=== PATIENT | male | born 1970 | race Two or more races ===

== ENCOUNTER 2019-04-04 11:09 | Inpatient (IN) | payer MEDICARE, MEDICAID ==
[~2019-04-04] VITALS: Ht 177.8 cm; Wt 109.2 kg
[2019-04-04] MEDS ORDERED: SODIUM CHLORIDE 0.9% 1,000 ML IV ONE (13:23)
[2019-04-04] MEDS ORDERED: PIPERACILLIN-TAZOB 3.375GM 100 ML IV ONE (13:30)
[2019-04-04 15:00] LABS: Hemoglobin 7.5 g/dL (13.5-17.5); Lymphocytes # (auto) 0.4 uL
[2019-04-04 15:02] LABS: Basophils # (auto) 0.1 uL; Basophils % (auto) 0.8 % (0.0-2.0); Eosinophils # (auto) 0.1 uL; Eosinophils % (auto) 0.8 % (0.0-7.0); Hematocrit 23.7 % (41.0-53.0); Lymphocytes % (auto) 4.7 % (10.0-50.0); Mean Corpuscular Hemoglobin 29.4 pg (28.0-32.0); Mean Corpuscular Hgb Conc. 31.7 g/dL (32.0-36.0); Mean Corpuscular Volume 92.9 fL (80.0-100.0); Monocytes # (auto) 0.5 uL; Monocytes % (auto) 6.5 % (0.0-12.0); Neutrophils # (auto) 6.6 uL; Neutrophils % (auto) 87.2 % (37.0-80.0); Platelet Count (auto) 229 10^3/uL (140-450); Red Blood Cells 2.55 10^6/uL (4.5-5.90); White Blood Cell 7.6 10^3/uL (4.4-10.8)
[2019-04-04] MEDS ORDERED: VANCOMYCIN 1GM/250ML 250 ML IV ONE ×2 (15:15→18:30)
[2019-04-04 15:21] LABS: Albumin 1.6 g/dL (3.4-5.0); BUN/Creatinine Ratio 5.6; Calcium 7.5 mg/dL (8.5-10.1); Potassium 4.8 mmol/L (3.5-5.1)
[2019-04-04 15:23] LABS: Red Cell Distribution Width 20.3 % (11.8-14.3)
[2019-04-04 15:25] LABS: Bilirubin, Total 0.9 mg/dL (0.2-1.0)
[2019-04-04] MEDS: PIPERACILLIN-TAZOB 3.375GM 100 ML IV ONE ×2 (15:30→17:20)
[2019-04-04 15:34] LABS: INR 1.21 (0.9-1.15)
[2019-04-04] MEDS ORDERED: NITROGLYCERIN 0.4 MG SL TAB SL PRN (16:45)
[2019-04-04] MEDS ORDERED: VANCOMYCIN PER PHARMACY 0 MG IV SCH (16:45)
[2019-04-04] MEDS ORDERED: DEXTROSE (50%) 50ML SYRG IV PRN (16:45)
[2019-04-04] MEDS ORDERED: ACETAMINOPHEN 500 MG TAB PO PRN (16:45)
[2019-04-04] MEDS ORDERED: MORPHINE SULF INJ 2 MG/ML SYRINGE 1ML IV PRN (16:45)
[2019-04-04] MEDS ORDERED: PIPERACILLIN-TAZOB 0.75 GM in D5W 5% 50 ML IV SCH (18:15)
[2019-04-04] MEDS: InsuLIN REG 1unit/0.01ml Soln (100units/ml) SC SCH ×2 (18:34→21:26)
[2019-04-04] MEDS: ACCU-CHEK COMFORT CURVE STRIP VI SCH ×2 (18:34→21:26)
[2019-04-04] MEDS: CALCIUM ACETATE 667 MG CAP PO SCH (18:34)
[2019-04-04 20:30] VITALS: BP 124/69
--- NOTE | 2019-04-04 20:30 | NUR ---
Telemetry admit from ER VENKATESH TELLES admitted to Telemetry unit after SBAR received. Patient oriented to Jacque Alvarado, primary RN, unit, room, bed, and unit policies regarding patient care and visiting hours. Patient now on continuous telemetry monitoring, tele box # and telemetry reading on arrival to unit is . Patient placed on bedside oxygen, weighed by bedscale and encouraged to call if they need something. All questions and concerns addressed, patient verbalized understanding. Note:
[2019-04-04] MEDS: PIPERACILLIN-TAZOB 2.25GM 50 ML IV SCH (21:25)
[2019-04-04] MEDS: HYDROcodone-ACET 5/325MG TAB PO PRN (21:27)
[2019-04-04 22:47] VITALS: BP 124/69
[2019-04-05] MEDS ORDERED: CAR125T PO (01:55)
[2019-04-05] MEDS ORDERED: GABA300C10 PO (01:55)
[2019-04-05] MEDS ORDERED: ATOR20TA PO (01:55)
[2019-04-05] MEDS ORDERED: ASPI81TA27 PO (01:55)
[2019-04-05] MEDS ORDERED: AMLO5TAB13 PO (01:55)
[2019-04-05] MEDS ORDERED: FURO20TA PO (01:55)
[2019-04-05] MEDS ORDERED: INSLANTI SC (01:55)
[2019-04-05] MEDS ORDERED: TAMS0.4C36 PO (01:55)
[2019-04-05] MEDS ORDERED: ZOLP10TA PO (01:55)
[2019-04-05] MEDS ORDERED: SEVE800T8 PO (01:55)
[2019-04-05] MEDS ORDERED: INSU100I2 SC (01:55)
[2019-04-05] MEDS ORDERED: HYDR-4683 PO (01:57)
[2019-04-05 05:16] LABS: Basophils # (auto) 0 uL; Basophils % (auto) 0.6 % (0.0-2.0); Eosinophils # (auto) 0.2 uL; Hemoglobin 7.1 g/dL (13.5-17.5); Lymphocytes # (auto) 0.4 uL; Monocytes # (auto) 0.6 uL; White Blood Cell 6.1 10^3/uL (4.4-10.8)
[2019-04-05 05:19] LABS: Eosinophils % (auto) 3.3 % (0.0-7.0); Hematocrit 22.2 % (41.0-53.0); Lymphocytes % (auto) 6.8 % (10.0-50.0); Mean Corpuscular Hemoglobin 30.1 pg (28.0-32.0); Monocytes % (auto) 9.5 % (0.0-12.0); Neutrophils # (auto) 4.9 uL; Neutrophils % (auto) 79.8 % (37.0-80.0); Platelet Count (auto) 224 10^3/uL (140-450); Red Blood Cells 2.36 10^6/uL (4.5-5.90)
[2019-04-05 05:28] VITALS: BP 97/52
[2019-04-05 05:42] LABS: Albumin 1.4 g/dL (3.4-5.0); BUN/Creatinine Ratio 5.9; Calcium 7.4 mg/dL (8.5-10.1); Potassium 4.8 mmol/L (3.5-5.1)
[2019-04-05 05:45] LABS: Bilirubin, Total 0.7 mg/dL (0.2-1.0); Total Protein 6.5 g/dL (6.4-8.2)
--- NOTE | 2019-04-05 06:00 | NUR ---
pt. afebrile, no c/o pain at this time, not in distress.
[2019-04-05] MEDS: ACCU-CHEK COMFORT CURVE STRIP VI SCH ×4 (06:03→21:40)
[2019-04-05] MEDS: InsuLIN REG 1unit/0.01ml Soln (100units/ml) SC SCH ×4 (06:03→21:40)
[2019-04-05 06:07] LABS: Red Cell Distribution Width 20.3 % (11.8-14.3)
--- NOTE | 2019-04-05 07:15 | NUR ---
Report and continuation of care received ,patient resting in bed, Hemodialysis in progress,respirations even and unlabored, no distress noted. Patient updated with plan of care and nursing routines ,Fall precautions in place with call light within reach. patient reminded instructed to call for assistance.patient verbalized understanding.Will continue to monitor q1hr & PRN.
[2019-04-05] MEDS: CALCIUM ACETATE 667 MG CAP PO SCH ×3 (08:00→18:06)
[2019-04-05 08:44] VITALS: BP 101/60
--- NOTE | 2019-04-05 09:45 | NUR ---
HEMODIALYSIS ENDED WITH 1 LITER OFF (SEE AIRCRAFT MECHANIC ARMAMENT FLOW SHEET)
--- NOTE | 2019-04-05 10:10 | NUR ---
MD VISIT DR. ELIZALDE HERE TO SEE AND EXAMINED PATIENT
[2019-04-05] MEDS ORDERED: ASPirin 81 mg TAB PO ONE (10:15)
[2019-04-05] MEDS: HYDROcodone-ACET 5/325MG TAB PO PRN (10:23)
[2019-04-05] MEDS: PIPERACILLIN-TAZOB 2.25GM 50 ML IV SCH ×2 (10:23→21:18)
[2019-04-05] MEDS: FAMOTIDINE 20 MG TAB PO SCH (10:23)
[2019-04-05] MEDS: ENOXAPARIN SOD 30 MG/0.3 ML SYRINGE SC SCH (10:24)
[2019-04-05] MEDS ORDERED: ZOLPIDEM TARTRATE 5 MG TAB PO PRN (10:30)
--- NOTE | 2019-04-05 11:40 | NUR ---
[employer] ARCHITECT AT BED SIDE,ASSESSMENT DONE AND DRESSING CHANGED DONE
--- NOTE | 2019-04-05 11:40 | NUR ---
WOUND CARE NOTE: Wound care in to see patient per wound care request regarding "Rt foot wound" that are noted present on admission. Bedside nurse took photograph of patient's wound upon admission for reference. Patient is 48 years old male with admitting diagnosis of Osteomyelitis Rt Lower Extremity. Patient is resting in bed in Rm. 208. He's awake, alert and fully oriented. Patient is in no stated pain at this time. He's able to move, turn and reposition self. His Alan score is 19. Patient had R foot partial amputation on August 2018 in different facility. He's noted with 9x10cm open full thickness wound to partially amputated R foot. Patient has home health nurse that takes care of his R foot wound twice a week and in between those days, his does the wound dressing. On reports, patient's saw maggots to patient's R Foot nurse. Removed wound dressing to patient's R Foot wound. His Rt foot wound has red wound bed with some area with yellow and marley yellow adherent slough,no measurable depth. Keesha wound is yellow with hyperkeratotic skin, minimal serosanguineous drainage noted, no odor noted, no maggots noted at this time. His RLE is edematous with dry skin. Wound culture reported taken and in process. Cleansed patient's Rt. foot wound with 1:1 NS and Hydrogen Peroxide, patted dry with gauze, covered with absorbent pad, wrapped with Kerlix and secure with tape. Patient tolerated well and denies any other wound. Bed in low position, call chavarria within reach, all safety precautions in placed. RECOMMENDATION: Daily/PRN dressing change to R foot wound per MD order, dietary consult, podiatry consult, redistribute pressure points with pillows, elevate affected extremity on pillows, continue monitoring by wound care while patient is hospitalized. Addendum: 04/05/19 at 1432 by Felicia North RN Amended: Links added.
[2019-04-05] MEDS: SEVELAMER 800 MG TAB PO SCH ×2 (12:25→18:06)
[2019-04-05 12:59] VITALS: BP 120/69
--- NOTE | 2019-04-05 13:30 | NUR ---
MD VISIT DR. ROSADO HERE TO SEE AND EXAMINED RIGHT FOOT WOUND OF PATIENT,RECEIVED VERBAL ORDERS,SEE ORDER WRITTEN
--- NOTE | 2019-04-05 13:35 | NUR ---
RIGHT FOOT CLEANSE WITH SALINE AND PEROXIDE ORDERED BY LABORATORY CHEMIST,ABD.DRESSING APPLIED AND WRAPPED WITH KERLIX.
--- NOTE | 2019-04-05 13:35 | NUR ---
RIGHT FOOT ELEVATED WITH 2 PILLOWS
--- NOTE | 2019-04-05 13:45 | NUR ---
ECHO AND RIGHT FOOT XRAY 3 VIEW DONE AT BEDSIDE
--- NOTE | 2019-04-05 14:04 | NUR ---
assessment Patient is a 48 year old male who is alert and oriented. Prior to admission patient lived home with his family and functioned with the help of his [place]. Patient has a wheelchair for home use. Patients PCP is Dr Hal Jha. Patient is on service with [facility] --Sat at 3pm. Patient was admitted for right foot wound. Patient may need IV ABX and home health on discharge. Patient informed me his family is teachable for the IV ABX. I will continue to monitor for any other post discharge needs. Addendum: 04/05/19 at 1407 by Gem LOYD Amended: Links added.
[2019-04-05] MEDS: MORPHINE SULF INJ 2 MG/ML SYRINGE 1ML IV PRN ×2 (14:30→21:19)
--- NOTE | 2019-04-05 14:30 | NUR ---
Nutrition consult/assessment Notes please see attached link for complete assessment Est. Needs IBW [id number] kcal (30-35 kcal/kgBW), 90-105 gms pro (1.2-1.4 gms/kgBW). Will continue to monitor pertinent labs and reassess nutrient need prn Addendum: 04/05/19 at [address] Amended: Links added.
[2019-04-05] MEDS ORDERED: VANCOMYCIN 1GM/250ML 250 ML IV ONE (16:00)
[2019-04-05 17:00] VITALS: BP_SYST 120; BP_SYST 128; BP_DIAS 67; BP_DIAS 69
[2019-04-05] MEDS: TAMSULOSIN HYDROCHLORIDE 0.4 MG CAP PO SCH (18:06)
--- NOTE | 2019-04-05 18:47 | NUR ---
STATUS UNCHANGED THE WHOLE SHIFT NO DISTRESS NO DISCOMFORT
--- NOTE | 2019-04-05 19:10 | NUR ---
ASSUMED CARE, PT. AWAKE, PT. EATING HIS DINNER, NO C/O PAIN, DRESSING ON RT. FOOT DRY AND INTACT ELEVATED ON PILLOW, NO SOB.
[2019-04-05] MEDS: ATORVASTATIN 20 MG TAB PO SCH (21:18)
[2019-04-05 22:00] VITALS: BP 127/63
[2019-04-06] MEDS: HYDROcodone-ACET 5/325MG TAB PO PRN ×2 (01:04→06:03)
[2019-04-06] MEDS: InsuLIN REG 1unit/0.01ml Soln (100units/ml) SC SCH ×4 (06:04→22:08)
[2019-04-06] MEDS: ACCU-CHEK COMFORT CURVE STRIP VI SCH ×4 (06:04→22:02)
[2019-04-06 06:19] VITALS: BP 134/81
[2019-04-06 06:22] LABS: Basophils # (auto) 0 uL; Eosinophils # (auto) 0.3 uL; Lymphocytes # (auto) 0.5 uL; Monocytes # (auto) 0.5 uL; Nucleated Red Blood Cells % 0.1 %; Platelet Count (auto) 266 10^3/uL (140-450); White Blood Cell 6.3 10^3/uL (4.4-10.8)
[2019-04-06 06:26] LABS: Basophils % (auto) 0.7 % (0.0-2.0); Eosinophils % (auto) 4.8 % (0.0-7.0); Hemoglobin 7.6 g/dL (13.5-17.5); Lymphocytes % (auto) 8.2 % (10.0-50.0); Mean Corpuscular Hemoglobin 30.7 pg (28.0-32.0); Mean Corpuscular Hgb Conc. 31.5 g/dL (32.0-36.0); Mean Corpuscular Volume 97.3 fL (80.0-100.0); Monocytes % (auto) 8.2 % (0.0-12.0); Neutrophils # (auto) 4.9 uL; Neutrophils % (auto) 78.1 % (37.0-80.0); Red Blood Cells 2.47 10^6/uL (4.5-5.90)
[2019-04-06 06:55] LABS: BUN/Creatinine Ratio 5.5; Calcium 6.9 mg/dL (8.5-10.1)
[2019-04-06 07:01] LABS: Red Cell Distribution Width 20.9 % (11.8-14.3)
--- NOTE | 2019-04-06 07:10 | NUR ---
Report and continuation of care received ,patient resting in bed,respirations even and unlabored, no distress noted. Patient updated with plan of care and nursing routines ,Fall precautions in place with call light within reach. patient reminded instructed to call for assistance.patient verbalized understanding.Will continue to monitor q1hr & PRN.
--- NOTE | 2019-04-06 08:10 | NUR ---
US DUPLEXLOWER EXTREMITIES ARTERIAL DONE AT BEDSIDE
[2019-04-06] MEDS: SEVELAMER 800 MG TAB PO SCH ×3 (08:12→18:03)
[2019-04-06] MEDS: CALCIUM ACETATE 667 MG CAP PO SCH ×3 (08:12→18:03)
[2019-04-06] MEDS: MORPHINE SULF INJ 2 MG/ML SYRINGE 1ML IV PRN ×3 (08:13→20:13)
[2019-04-06] MEDS: PIPERACILLIN-TAZOB 2.25GM 50 ML IV SCH (09:53)
[2019-04-06] MEDS: ASPirin 81 mg TAB PO SCH (09:54)
[2019-04-06] MEDS: FUROSEMIDE 40 MG TAB PO SCH (09:54)
[2019-04-06] MEDS: ENOXAPARIN SOD 30 MG/0.3 ML SYRINGE SC SCH (09:55)
[2019-04-06] MEDS: FAMOTIDINE 20 MG TAB PO SCH (09:55)
--- NOTE | 2019-04-06 10:30 | NUR ---
MD VISIT DR. ELIZALDE HERE TO SEE AND EXAMINED PATIENT,MADE AWARE OF PATIENT NEEDING PICC PER DR. ROSADO,STATED TO HOLD ON IT AT THIS TIME,BUT TO ASK DR. PIERCE FOR CLEARANCE IF OK TO PUT PICC LINE IN CASE PATIENT IS NEEDING ONE.
--- NOTE | 2019-04-06 10:35 | NUR ---
CARLOS PICC LINE RN MADE AWARE TO HOLD PICC INSERTION FOR NOW
--- NOTE | 2019-04-06 10:55 | NUR ---
DR. ROSADO AND DR. ELIZALDE HERE, DISCUSSED PLAN OF CARE
[2019-04-06 11:22] LABS: INR 1.14 (0.9-1.15); Partial Thromboplastin Time 33.7 sec (23.64-32.05)
--- NOTE | 2019-04-06 12:50 | NUR ---
RECEIVED WOUND CULTURE RESULT,POSITIVE FOR ESBL,E.COLI,MRSA
--- NOTE | 2019-04-06 12:54 | NUR ---
DR. ELIZALDE INFORMED OF WOUND CULTURE RESULT
[2019-04-06 13:00] VITALS: BP 131/75
[2019-04-06] MEDS ORDERED: ERTAPENEM SOD INJ 0.5 GM in SODIUM CHL 0.9% 50 ML IV ONE (13:00)
[2019-04-06] MEDS: MUPIROCIN 2% OINT 15gm or 22gm EACHNOSTRI SCH ×2 (13:42→22:00)
--- NOTE | 2019-04-06 15:25 | NUR ---
DRESSING TO RIGHT FOOT CHANGE,CLEANSE WITH NS AND PEROXIDE 1:1 RATIO
--- NOTE | 2019-04-06 16:08 | NUR ---
PICC LINE UPDATE Primary RN still waiting on Nephdmitry KIM for PICC Line approval to right arm as pt has AV fistula on left upper extremity. IV 20g to right upper arm for access as requested per primary RN. Pt tolerated well. Primary RN notified of successful attempt.
[2019-04-06 17:33] VITALS: BP 152/91
[2019-04-06] MEDS: TAMSULOSIN HYDROCHLORIDE 0.4 MG CAP PO SCH (18:03)
--- NOTE | 2019-04-06 18:28 | NUR ---
DR. PIERCE HERE,INFORMED OF PATIENT POSSIBLE NEEDING PICC LINE FOR USP ANTIBIOTICS AND IF OK TO PUT ONE, RECEIVED ORDER OK TO INSERT PICC LINE TO RIGHT ARM IF NEEDED FOR USP IV ANTIBIOTICS,ORDER WRITTEN.
--- NOTE | 2019-04-06 19:15 | NUR ---
Opening Shift Note Assumed care of patient. Patient awake, alert, and oriented X4. Patient verbalizes severe pain on right foot as 10/10. Will medicate as per order and reassess pain. Dressing to right foot dry and intact. Instructed on POC and to call for assist PRN, call light with in reach, will continue to monitor for changes PRN.
[2019-04-06 20:00] VITALS: BP 152/91
[2019-04-06] MEDS: ATORVASTATIN 20 MG TAB PO SCH (22:03)
[2019-04-06 22:26] VITALS: BP 111/51
[2019-04-07] VITALS (8 sets, daily range): BP systolic 127–158; BP diastolic 68–111
[2019-04-07] MEDS: hydrALAZINE HCL 20 MG/ML VL IV PRN (04:45)
--- NOTE | 2019-04-07 06:09 | NUR ---
CLOSING ROUNDS PATIENT AWAKE, ALERT, SITTING ON SIDE OF BED. DENIES ANY PAIN OR DISCOMFORT. STATES HE HAD A " GOOD NIGHTS REST, AND FEELING WELL". CURRENT BLOOD PRESSURE IS 127/75, HR OF 80BPM, AND RR OF 18BPM.
[2019-04-07] MEDS: ACCU-CHEK COMFORT CURVE STRIP VI SCH ×4 (06:48→21:52)
[2019-04-07] MEDS: InsuLIN REG 1unit/0.01ml Soln (100units/ml) SC SCH ×4 (06:48→21:52)
[2019-04-07] MEDS: SEVELAMER 800 MG TAB PO SCH ×3 (08:14→18:09)
[2019-04-07] MEDS: CALCIUM ACETATE 667 MG CAP PO SCH ×3 (08:14→18:09)
[2019-04-07] MEDS: ENOXAPARIN SOD 30 MG/0.3 ML SYRINGE SC SCH (10:00)
[2019-04-07] MEDS: MUPIROCIN 2% OINT 15gm or 22gm EACHNOSTRI SCH ×2 (10:28→21:45)
[2019-04-07] MEDS: FUROSEMIDE 40 MG TAB PO SCH (10:29)
[2019-04-07] MEDS: ASPirin 81 mg TAB PO SCH (10:29)
[2019-04-07] MEDS: FAMOTIDINE 20 MG TAB PO SCH (10:29)
[2019-04-07] MEDS ORDERED: amLODIPine BESYLATE 5 MG TAB PO ONE (11:00)
--- NOTE | 2019-04-07 11:28 | NUR ---
Spoke with [facility]. Medication that the patient would infuse during dialysis is vancomycin 1gm. Dr. Duran made aware.
[2019-04-07] MEDS ORDERED: SODIUM ZIRCONIUM CYCL 10 GM PAK PO ONE (11:30)
[2019-04-07] MEDS: ERTAPENEM SOD INJ 0.5 GM in SODIUM CHL 0.9% 50 ML IV SCH (11:56)
--- NOTE | 2019-04-07 13:09 | NUR ---
PICC line placement Patient educated on need for PICC line placement. All risks and benefits explained and all questions and concerns addressed prior to procedure. Noted past medical history and allergies with no contraindications. INR and Plt counts within acceptable range. 4 fr PICC line inserted via right basilic vein using [employer] US and Tip Location System. Sterile technique with maximum barrier precautions utilized. Blood return obtained from single lumen and flushed easily with NS using proper technique. PICC secured with Stat-lock; biodisc and occlusive dressing applied. Stat portable chest x-ray obtained for PICC tip placement. *Baseline Arm Circumference 34 cm. *Internal length 47 cm. *External Length 0 cm. *PICC lot #[id number]. Note: EBL 5 ccs. Placed easily.
--- NOTE | 2019-04-07 13:12 | NUR ---
re-assessment Per consult home health for IV ABX. Patient signed choice letter for [facility]. Patient may need IV ABX given with his dialysis. Alea pillowcase maker is working on IV ABX. Addendum: 04/08/19 at 1714 by Gem Joseph Amended: Links added.
[2019-04-07] MEDS ORDERED: LIDOCAINE 1% (LOCAL ANESTH.) PF 5ml SDV ID ONE (13:15)
--- NOTE | 2019-04-07 14:15 | NUR ---
Okay to use PICC Line X-ray completed. Primary RN notified.
--- NOTE | 2019-04-07 14:48 | NUR ---
Orders obtained from Dr. Madison concerning The patient's procedure tomorrow. npo after midnight and excisional debridement of osteomyelitic bones, right foot stump.
[2019-04-07] MEDS ORDERED: VANCOMYCIN 1GM/250ML 250 ML IV ONE (16:00)
[2019-04-07] MEDS: TAMSULOSIN HYDROCHLORIDE 0.4 MG CAP PO SCH (18:09)
--- NOTE | 2019-04-07 18:32 | NUR ---
Dressing Changed Right foot dressing changed per doctor's orders. Wound bed is pink, no odor detected.
[2019-04-07] MEDS: LINEZOLID 600MG/300ML 300 ML IV SCH (18:38)
--- NOTE | 2019-04-07 19:40 | NUR ---
Opening Shift Note Assumed care of patient, awake and alert, oriented x 4. On room air with even and unlabored respirations, no S/S of distress or SOB. Patient using urinal independently, report is is still producing urine. Dressing to right foot is clean, dry, and intact, noted +2 pitting edema to bilateral lower extremities. noted left forearm AV fistula with positive bruit and thrill. Patient turns independently in bed and is able to ambulate with steady gait. Bed low locked position with side rails up x 2 and call light within reach. Instructed on POC for NPO after midnight, patient verbalized understanding. Instructed to call for assist PRN, will continue to monitor for changes Q1hr and PRN.
[2019-04-07] MEDS: MORPHINE SULF INJ 2 MG/ML SYRINGE 1ML IV PRN (19:42)
[2019-04-07] MEDS: ATORVASTATIN 20 MG TAB PO SCH (21:47)
[2019-04-07] MEDS: CARVEDILOL 3.125 MG TAB PO SCH (21:48)
[2019-04-07] MEDS: SODIUM CHLOR 0.9% PF (SALINE LOCK) 10ML VIAL/SYR IV SCH (21:53)
[2019-04-07] MEDS: HYDROcodone-ACET 5/325MG TAB PO PRN (21:55)
[2019-04-08] MEDS: LINEZOLID 600MG/300ML 300 ML IV SCH ×2 (01:57→17:26)
[2019-04-08 05:12] VITALS: BP 147/84
[2019-04-08] MEDS: ACCU-CHEK COMFORT CURVE STRIP VI SCH ×4 (06:24→22:15)
[2019-04-08] MEDS: InsuLIN REG 1unit/0.01ml Soln (100units/ml) SC SCH ×4 (06:24→22:00)
--- NOTE | 2019-04-08 06:59 | NUR ---
Called Pre Op RE: surgery time spoke with Olimpia, patient is not on the schedule, recommended to call Dr. Madison.
--- NOTE | 2019-04-08 07:00 | NUR ---
Opening Shift Note Assumed care of patient, awake and alert. No S/S of distress/SOB or pain. Instructed on POC and to call for assist PRN, will continue to monitor for changes Q1hr and PRN.
--- NOTE | 2019-04-08 07:01 | NUR ---
Closing Note patient resting in bed with even and unlabored respirations, no s/s of distress. Dressing to right foot clean, dry and intact. Bed low locked position with side rails up x 2 and call light within reach. Endorsed care to day shift AJITH Stubbs.
--- NOTE | 2019-04-08 07:04 | NUR ---
Attempted to page Dr. Madison office closed at this time, unable to page, informed day shift AJITH Stubbs.
--- NOTE | 2019-04-08 07:45 | NUR ---
SPOKE WITH PRE OP. PATIENT ON SCHEDULE TODAY FOR SURGERY AROUND NOON. WILL INFORM PATIENT.
[2019-04-08 08:00] VITALS: BP 157/80
[2019-04-08] MEDS: CALCIUM ACETATE 667 MG CAP PO SCH ×3 (08:00→17:51)
[2019-04-08] MEDS: SEVELAMER 800 MG TAB PO SCH ×3 (08:00→17:51)
[2019-04-08 08:19] VITALS: BP 157/80
[2019-04-08] MEDS: CARVEDILOL 3.125 MG TAB PO SCH ×2 (10:00→21:33)
[2019-04-08] MEDS: FAMOTIDINE 20 MG TAB PO SCH (10:00)
[2019-04-08] MEDS: FUROSEMIDE 40 MG TAB PO SCH (10:00)
[2019-04-08] MEDS: ASPirin 81 mg TAB PO SCH (10:00)
[2019-04-08] MEDS: ENOXAPARIN SOD 30 MG/0.3 ML SYRINGE SC SCH (10:00)
[2019-04-08] MEDS: amLODIPine BESYLATE 5 MG TAB PO SCH (10:00)
[2019-04-08] MEDS: SODIUM CHLOR 0.9% PF (SALINE LOCK) 10ML VIAL/SYR IV SCH ×2 (10:20→21:33)
[2019-04-08] MEDS: ERTAPENEM SOD INJ 0.5 GM in SODIUM CHL 0.9% 50 ML IV SCH (12:01)
[2019-04-08] MEDS: MUPIROCIN 2% OINT 15gm or 22gm EACHNOSTRI SCH ×2 (12:01→21:32)
--- NOTE | 2019-04-08 13:53 | NUR ---
OFF UNIT. TO PREOP. NO DISTRESS NOTED AT TIME OF DEPARTURE. REPORT GIVEN TO ELOISE IN PRE-OP.
[2019-04-08] MEDS ORDERED: ceFAZolin 1GM/50ML 50 ML IV ONE (13:54)
[2019-04-08 14:03] VITALS: BP 166/92
--- NOTE | 2019-04-08 15:10 | NUR ---
BACK FROM PRE-OP. PROCEDURE CANCELLED. ACCORDING TO THE ANESTHESIOLOGIST, THE PATIENT NEEDS CARDIAC CLEARANCE. DR. PRESTON MADE AWARE.
[2019-04-08] MEDS: TAMSULOSIN HYDROCHLORIDE 0.4 MG CAP PO SCH (17:51)
[2019-04-08] MEDS: MORPHINE SULF INJ 2 MG/ML SYRINGE 1ML IV PRN (17:52)
--- NOTE | 2019-04-08 19:30 | NUR ---
assumed care, pt. awake, dressing on rt. foot dry and intact, elevated on pillow, no c/o pain, no sob.
[2019-04-08 21:30] VITALS: BP 149/83
[2019-04-08] MEDS: ATORVASTATIN 20 MG TAB PO SCH (21:33)
[2019-04-08] MEDS: HYDROcodone-ACET 5/325MG TAB PO PRN (21:34)
[2019-04-09] MEDS: LINEZOLID 600MG/300ML 300 ML IV SCH ×2 (02:05→18:24)
[2019-04-09 04:30] VITALS: BP 161/86
--- NOTE | 2019-04-09 05:27 | NUR ---
prevention rn called, pt. will have his dialysis at 1100 am, will endorsed to rn in am.
[2019-04-09 05:39] VITALS: BP 146/86
[2019-04-09 05:56] LABS: Basophils # (auto) 0.1 uL; Basophils % (auto) 0.8 % (0.0-2.0); Eosinophils # (auto) 0.3 uL; Hemoglobin 7.9 g/dL (13.5-17.5); Lymphocytes # (auto) 0.8 uL; Monocytes # (auto) 0.4 uL; Neutrophils # (auto) 5.3 uL; White Blood Cell 6.8 10^3/uL (4.4-10.8)
[2019-04-09 05:59] LABS: Eosinophils % (auto) 4.3 % (0.0-7.0); Hematocrit 24.6 % (41.0-53.0); Lymphocytes % (auto) 12.3 % (10.0-50.0); Mean Corpuscular Hemoglobin 29.6 pg (28.0-32.0); Mean Corpuscular Hgb Conc. 31.9 g/dL (32.0-36.0); Mean Corpuscular Volume 92.6 fL (80.0-100.0); Monocytes % (auto) 5.6 % (0.0-12.0); Platelet Count (auto) 306 10^3/uL (140-450); Red Blood Cells 2.66 10^6/uL (4.5-5.90)
[2019-04-09] MEDS: InsuLIN REG 1unit/0.01ml Soln (100units/ml) SC SCH ×4 (06:02→21:17)
[2019-04-09] MEDS: ACCU-CHEK COMFORT CURVE STRIP VI SCH ×4 (06:02→21:17)
[2019-04-09 06:09] LABS: Red Cell Distribution Width 20.1 % (11.8-14.3)
[2019-04-09 06:17] LABS: BUN/Creatinine Ratio 5.9; Calcium 6.9 mg/dL (8.5-10.1)
--- NOTE | 2019-04-09 06:56 | NUR ---
PRESSING MACHINE OPERATOR CALLED, PT. WILL HAVE HIS DIALYSIS AT 0730.
[2019-04-09] MEDS ORDERED: SODIUM CHL 0.9% 1000 ML BAG XX ONE (07:00)
[2019-04-09 08:35] LABS: Hemoglobin 8.1 g/dL (13.5-17.5)
[2019-04-09 08:37] LABS: Hematocrit 24.9 % (41.0-53.0)
[2019-04-09 08:46] LABS: % Iron Saturation 43.5 % (20-55)
[2019-04-09 09:00] VITALS: BP 139/71
[2019-04-09] MEDS: ASPirin 81 mg TAB PO SCH (10:00)
[2019-04-09] MEDS: amLODIPine BESYLATE 5 MG TAB PO SCH (10:00)
[2019-04-09] MEDS: CARVEDILOL 3.125 MG TAB PO SCH ×2 (10:00→21:12)
[2019-04-09] MEDS: ENOXAPARIN SOD 30 MG/0.3 ML SYRINGE SC SCH (10:00)
--- NOTE | 2019-04-09 10:16 | NUR ---
Dr. Felipe benjamin for cardio clearance
[2019-04-09] MEDS: SEVELAMER 800 MG TAB PO SCH ×3 (10:33→17:04)
[2019-04-09] MEDS: CALCIUM ACETATE 667 MG CAP PO SCH ×3 (10:33→17:04)
[2019-04-09] MEDS: SODIUM CHLOR 0.9% PF (SALINE LOCK) 10ML VIAL/SYR IV SCH ×2 (10:34→21:11)
[2019-04-09] MEDS: MUPIROCIN 2% OINT 15gm or 22gm EACHNOSTRI SCH ×2 (10:34→21:11)
[2019-04-09] MEDS: FUROSEMIDE 40 MG TAB PO SCH (10:35)
[2019-04-09] MEDS: FAMOTIDINE 20 MG TAB PO SCH (10:35)
--- NOTE | 2019-04-09 13:05 | NUR ---
Heparin 10,000 units (1 vial) endorsed to drafter detail Kamra.
--- NOTE | 2019-04-09 13:30 | NUR ---
DIALYSIS NURSE IN ROOM PREPARING TO DIALYZE PATIENT.
--- NOTE | 2019-04-09 14:26 | NUR ---
DRESSING ON RT FOOT CLEANED AND COVERED PATIENT IS RESTING COMFORTABLY
[2019-04-09] MEDS: ERTAPENEM SOD INJ 0.5 GM in SODIUM CHL 0.9% 50 ML IV SCH (16:10)
[2019-04-09] MEDS: HYDROcodone-ACET 5/325MG TAB PO PRN (16:12)
[2019-04-09 17:00] VITALS: BP 153/93
[2019-04-09] MEDS: TAMSULOSIN HYDROCHLORIDE 0.4 MG CAP PO SCH (17:04)
[2019-04-09] MEDS: MORPHINE SULF INJ 2 MG/ML SYRINGE 1ML IV PRN (17:06)
--- NOTE | 2019-04-09 19:40 | NUR ---
Opening Shift Note Assumed care of patient, awake and alert. Family at bedside. No S/S of distress/SOB or pain. Bed locked in lowest position, side rails upx2, call light within reach. Instructed on POC and to call for assist PRN, will continue to monitor for changes Q1hr and PRN.
[2019-04-09] MEDS ORDERED: EPOETIN ALFA 10,000 UNIT/1 ML VIAL SC ONE (21:00)
[2019-04-09] MEDS: ATORVASTATIN 20 MG TAB PO SCH (21:11)
[2019-04-09 22:00] VITALS: BP 163/91
[2019-04-10] MEDS: MORPHINE SULF INJ 2 MG/ML SYRINGE 1ML IV PRN ×3 (00:17→16:22)
[2019-04-10] MEDS: LINEZOLID 600MG/300ML 300 ML IV SCH ×2 (02:02→14:19)
[2019-04-10 04:30] VITALS: BP 140/76
[2019-04-10] MEDS: InsuLIN REG 1unit/0.01ml Soln (100units/ml) SC SCH ×4 (06:26→21:09)
[2019-04-10] MEDS: ACCU-CHEK COMFORT CURVE STRIP VI SCH ×4 (06:26→21:09)
[2019-04-10 09:00] VITALS: BP 137/78
[2019-04-10] MEDS: MUPIROCIN 2% OINT 15gm or 22gm EACHNOSTRI SCH ×2 (10:16→21:07)
[2019-04-10] MEDS: ERTAPENEM SOD INJ 0.5 GM in SODIUM CHL 0.9% 50 ML IV SCH (10:16)
[2019-04-10] MEDS: SODIUM CHLOR 0.9% PF (SALINE LOCK) 10ML VIAL/SYR IV SCH ×2 (10:16→21:07)
[2019-04-10] MEDS: CALCIUM ACETATE 667 MG CAP PO SCH ×3 (10:16→17:24)
[2019-04-10] MEDS: SEVELAMER 800 MG TAB PO SCH ×3 (10:16→17:25)
[2019-04-10] MEDS: FUROSEMIDE 40 MG TAB PO SCH (10:17)
[2019-04-10] MEDS: ASPirin 81 mg TAB PO SCH (10:17)
[2019-04-10] MEDS: CARVEDILOL 3.125 MG TAB PO SCH ×2 (10:17→21:14)
[2019-04-10] MEDS: ENOXAPARIN SOD 30 MG/0.3 ML SYRINGE SC SCH (10:18)
[2019-04-10] MEDS: amLODIPine BESYLATE 5 MG TAB PO SCH (10:18)
[2019-04-10] MEDS: FAMOTIDINE 20 MG TAB PO SCH (10:18)
[2019-04-10] MEDS: HYDROcodone-ACET 5/325MG TAB PO PRN (10:21)
[2019-04-10 13:00] VITALS: BP 139/84
--- NOTE | 2019-04-10 14:46 | NUR ---
Nutrition Follow-up Notes Wt.: 108.2 kg Pt was awake and oriented when rounded this am. per pt has no N.v with good appetite. pter pt records pt had sx for his wounds on 04/08 and HD yesterday. pt is currently on renal std diet with adequate PO of > 75% x 4 per RN doc Est. Needs IBW [id number] kcal (30-35 kcal/kgBW), 90-105 gms pro (1.2-1.4 gms/kgBW). Will continue to monitor pertinent labs and reassess nutrient need prn Labs: BUN 38 H, CREAT 6.41 H, GLU 110 H, CA 6.9 L. Skin: Alan scale 19, mod risk, s/p debridement wounds per flute teacher. refer to WC notes GI: Pt had 1 BM this morning per flute teacher. PES: Altered nutrition related lab values r/t acute/chronic medical condition aeb elev RFT severe hypoalb, hypocalcemia, elev A1C, hyperglycemia Decreased nutrient needs r/t adiposity aeb pt`s high BMI of 39.9 kgm2 Will continue to monitor PO intake, skin status, pertinent labs and weight trend. F/u in 3-5 days. Rec.: 1.) consider CCHO 60 gm renal std diet. 2) consider nephrovite daily and vit C bid. 3) consider prostat 1 packet bid. 4) refer to CDE on DC. 5) continue current plan of care
[2019-04-10 17:00] VITALS: BP 139/67
[2019-04-10] MEDS: TAMSULOSIN HYDROCHLORIDE 0.4 MG CAP PO SCH (17:25)
[2019-04-10] MEDS: hydrALAZINE HCL 20 MG/ML VL IV PRN (17:26)
--- NOTE | 2019-04-10 19:40 | NUR ---
Opening Shift Note Assumed care of patient, awake and alert. No S/S of distress/SOB or pain. Bed locked in lowest position, side rails upx2, call light within reach. Instructed on POC and to call for assist PRN, will continue to monitor for changes Q1hr and PRN.
[2019-04-10] MEDS: ATORVASTATIN 20 MG TAB PO SCH (21:07)
[2019-04-10 22:00] VITALS: BP 136/71
[2019-04-11] MEDS: LINEZOLID 600MG/300ML 300 ML IV SCH ×2 (02:04→16:42)
[2019-04-11 04:30] VITALS: BP 143/80
[2019-04-11] MEDS: InsuLIN REG 1unit/0.01ml Soln (100units/ml) SC SCH ×4 (06:12→21:24)
[2019-04-11] MEDS: ACCU-CHEK COMFORT CURVE STRIP VI SCH ×4 (06:12→21:23)
[2019-04-11 08:00] VITALS: BP 142/85
[2019-04-11] MEDS: CALCIUM ACETATE 667 MG CAP PO SCH ×3 (08:00→17:49)
[2019-04-11] MEDS: SEVELAMER 800 MG TAB PO SCH ×3 (08:00→17:49)
[2019-04-11] MEDS ORDERED: ADENOSINE 109 MG in GIVE UN-DILUTED 0 ML IV STA (08:25)
[2019-04-11 09:30] VITALS: BP 141/73
[2019-04-11] MEDS: ASPirin 81 mg TAB PO SCH (10:00)
[2019-04-11] MEDS: ERTAPENEM SOD INJ 0.5 GM in SODIUM CHL 0.9% 50 ML IV SCH ×2 (10:00→12:02)
[2019-04-11] MEDS ORDERED: MORPHINE SULF INJ 2 MG/ML SYRINGE 1ML IV PRN (11:15)
[2019-04-11 11:29] LABS: BUN/Creatinine Ratio 4.9; Calcium 7.2 mg/dL (8.5-10.1); Phosphorus 4.2 mg/dL (2.5-4.90); Potassium 4.8 mmol/L (3.5-5.1)
[2019-04-11] MEDS: MUPIROCIN 2% OINT 15gm or 22gm EACHNOSTRI SCH (11:39)
[2019-04-11 11:45] LABS: Basophils # (auto) 0.1 uL; Basophils % (auto) 1.1 % (0.0-2.0); Eosinophils # (auto) 0.3 uL; Eosinophils % (auto) 4.5 % (0.0-7.0); Hematocrit 27.9 % (41.0-53.0); Hemoglobin 8.8 g/dL (13.5-17.5); Lymphocytes # (auto) 0.9 uL; Lymphocytes % (auto) 14.3 % (10.0-50.0); Mean Corpuscular Hemoglobin 29.7 pg (28.0-32.0); Mean Corpuscular Hgb Conc. 31.5 g/dL (32.0-36.0); Mean Corpuscular Volume 94.4 fL (80.0-100.0); Monocytes # (auto) 0.4 uL; Monocytes % (auto) 5.7 % (0.0-12.0); Neutrophils # (auto) 4.8 uL; Neutrophils % (auto) 74.4 % (37.0-80.0); Nucleated Red Blood Cells % 0.1 %; Platelet Count (auto) 201 10^3/uL (140-450); Red Blood Cells 2.96 10^6/uL (4.5-5.90); White Blood Cell 6.5 10^3/uL (4.4-10.8)
[2019-04-11 11:49] VITALS: BP 145/74
[2019-04-11] MEDS: SODIUM CHLOR 0.9% PF (SALINE LOCK) 10ML VIAL/SYR IV SCH ×2 (12:02→21:19)
--- NOTE | 2019-04-11 12:02 | NUR ---
I faxed home IV ATB/home health order to [facility] and [facility]. I also spoke with nurse Lucrecia sánchez to discuss the plan of care for this patient-to have stress test today (needing cardiac clearance for podiatry surgery).
[2019-04-11] MEDS: FUROSEMIDE 40 MG TAB PO SCH (12:03)
[2019-04-11] MEDS: CARVEDILOL 3.125 MG TAB PO SCH ×2 (12:03→22:04)
[2019-04-11] MEDS: amLODIPine BESYLATE 5 MG TAB PO SCH (12:04)
[2019-04-11] MEDS: FAMOTIDINE 20 MG TAB PO SCH (12:04)
[2019-04-11 12:26] LABS: Red Cell Distribution Width 20.3 % (11.8-14.3)
[2019-04-11] MEDS: HYDROcodone-ACET 5/325MG TAB PO PRN (15:17)
[2019-04-11] MEDS: MORPHINE SULF INJ 2 MG/ML SYRINGE 1ML IV PRN ×2 (16:47→22:20)
[2019-04-11 16:58] VITALS: BP 127/82
[2019-04-11] MEDS: TAMSULOSIN HYDROCHLORIDE 0.4 MG CAP PO SCH (17:49)
[2019-04-11] MEDS: ATORVASTATIN 20 MG TAB PO SCH (21:18)
[2019-04-11 22:00] VITALS: BP 154/105
[2019-04-12] MEDS: LINEZOLID 600MG/300ML 300 ML IV SCH ×2 (01:32→14:39)
--- NOTE | 2019-04-12 02:25 | NUR ---
EKG done , result in the chart.
[2019-04-12 05:30] VITALS: BP 144/105
[2019-04-12] MEDS: InsuLIN REG 1unit/0.01ml Soln (100units/ml) SC SCH ×4 (05:57→22:00)
[2019-04-12] MEDS: ACCU-CHEK COMFORT CURVE STRIP VI SCH ×4 (05:57→22:09)
[2019-04-12 06:34] LABS: Potassium 5.1 mmol/L (3.5-5.1)
[2019-04-12 06:43] LABS: INR 1.06 (0.9-1.15); Partial Thromboplastin Time 30.7 sec (23.64-32.05)
[2019-04-12 06:51] LABS: Albumin 1.7 g/dL (3.4-5.0); BUN/Creatinine Ratio 4.5; Bilirubin, Total 0.4 mg/dL (0.2-1.0); Calcium 7.5 mg/dL (8.5-10.1); Total Protein 6.9 g/dL (6.4-8.2)
[2019-04-12] MEDS ORDERED: SODIUM CHL 0.9% 1000 ML BAG XX ONE (07:00)
--- NOTE | 2019-04-12 07:45 | NUR ---
Report given to Kristie Linton to assume care, NPO maintained.
[2019-04-12 08:00] VITALS: BP 144/99
[2019-04-12] MEDS: CALCIUM ACETATE 667 MG CAP PO SCH ×3 (08:00→18:18)
[2019-04-12] MEDS: SEVELAMER 800 MG TAB PO SCH ×3 (08:00→18:18)
--- NOTE | 2019-04-12 08:30 | NUR ---
PT IN DIALYSIS AT MOMENT, TOLERATING WELL. EFFORTLESS BREATHING ON ROOM AIR. FLAKING ROLL OPERATOR AT BEDSIDE.
[2019-04-12] MEDS: SODIUM CHLOR 0.9% PF (SALINE LOCK) 10ML VIAL/SYR IV SCH ×2 (11:02→22:02)
[2019-04-12] MEDS: ASPirin 81 mg TAB PO SCH (11:02)
[2019-04-12] MEDS: FUROSEMIDE 40 MG TAB PO SCH (11:03)
[2019-04-12] MEDS: FAMOTIDINE 20 MG TAB PO SCH (11:03)
[2019-04-12] MEDS: CARVEDILOL 3.125 MG TAB PO SCH ×2 (11:03→22:01)
[2019-04-12] MEDS: amLODIPine BESYLATE 5 MG TAB PO SCH (11:04)
--- NOTE | 2019-04-12 11:20 | NUR ---
DIALYSIS COMPLETED. PT TOLERATED WELL. PASSED MORNING MEDICATIONS, WILL CONTINUE TO MONITOR.
[2019-04-12] MEDS: ERTAPENEM SOD INJ 0.5 GM in SODIUM CHL 0.9% 50 ML IV SCH (11:36)
[2019-04-12] MEDS: MORPHINE SULF INJ 2 MG/ML SYRINGE 1ML IV PRN ×2 (11:45→18:17)
--- NOTE | 2019-04-12 11:45 | NUR ---
WOUND CARE NOTE: Weekly reevaluation by wound care team. Dressing changed per orders to right foot wound. See assessment for measurements. Photos taken for wound progression. Patient c/o pain 6 out of 10 and bedside RNRoyer is medicating as ordered. Patient tolerated well. Nursing to continue to change dressings as ordered. Wound care team to continue to monitor. Addendum: 04/12/19 at 1546 by CAMDEN ASCENCIO RN Amended: Links added.
[2019-04-12 12:00] VITALS: BP 135/70
[2019-04-12 16:54] VITALS: BP 129/69
[2019-04-12] MEDS: TAMSULOSIN HYDROCHLORIDE 0.4 MG CAP PO SCH (18:18)
--- NOTE | 2019-04-12 20:00 | NUR ---
Opening Shift Note Assumed care of patient, awake and alert. No S/S of distress/SOB or pain. Instructed on POC and to call for assist PRN, will continue to monitor for changes Q1hr and PRN.Dressing in the right foot dry and intact.
[2019-04-12] MEDS ORDERED: EPOETIN ALFA 10,000 UNIT/1 ML VIAL SC ONE (21:00)
[2019-04-12] MEDS: ATORVASTATIN 20 MG TAB PO SCH (21:39)
[2019-04-12 22:00] VITALS: BP 122/78
[2019-04-13] VITALS (7 sets, daily range): BP systolic 118–142; BP diastolic 69–92
[2019-04-13] MEDS: MORPHINE SULF INJ 2 MG/ML SYRINGE 1ML IV PRN ×3 (00:02→20:34)
[2019-04-13] MEDS: LINEZOLID 600MG/300ML 300 ML IV SCH ×2 (01:33→14:32)
[2019-04-13] MEDS: InsuLIN REG 1unit/0.01ml Soln (100units/ml) SC SCH ×4 (07:00→22:00)
[2019-04-13] MEDS: ACCU-CHEK COMFORT CURVE STRIP VI SCH ×4 (07:02→22:50)
--- NOTE | 2019-04-13 07:20 | NUR ---
PT SLEEPING AT MOMENT. EFFORTLESS BREATHING ON ROOM AIR. IV PRESENT TO BROOKE PICC LINE SINGLE LUMEN, RFA#20. NO S/S OF DISTRESS. BED IN LOWEST POSITION, BED WHEELS LOCKED, CALL LIGHT WITHIN REACH. WILL CONTINUE TO MONITOR.
--- NOTE | 2019-04-13 07:45 | NUR ---
Report given to Kristie Linton to assume care, NPO maintained.
[2019-04-13] MEDS: CALCIUM ACETATE 667 MG CAP PO SCH ×3 (08:00→17:46)
[2019-04-13] MEDS: SEVELAMER 800 MG TAB PO SCH ×3 (08:00→17:46)
[2019-04-13] MEDS: FUROSEMIDE 40 MG TAB PO SCH (09:43)
[2019-04-13] MEDS: CARVEDILOL 3.125 MG TAB PO SCH ×2 (09:44→21:31)
[2019-04-13] MEDS: amLODIPine BESYLATE 5 MG TAB PO SCH (09:44)
[2019-04-13] MEDS: SODIUM CHLOR 0.9% PF (SALINE LOCK) 10ML VIAL/SYR IV SCH ×2 (09:45→22:52)
[2019-04-13] MEDS: FAMOTIDINE 20 MG TAB PO SCH (09:45)
[2019-04-13] MEDS: ASPirin 81 mg TAB PO SCH (09:45)
[2019-04-13] MEDS: ERTAPENEM SOD INJ 0.5 GM in SODIUM CHL 0.9% 50 ML IV SCH (09:47)
--- NOTE | 2019-04-13 12:25 | NUR ---
PRE-OP CHG WIPE DONE.
--- NOTE | 2019-04-13 14:39 | NUR ---
Nutrition Follow-up Notes Wt.: 129.9 kg based on bed scale today. Pt had dialysis yesterday, watching TV, denies any discomfort when rounded this morning. Pt's currently NPO for a procedure today with active Cardiology consult.. Est. Needs IBW [id number] kcal (30-35 kcal/kgBW), 90-105 gms pro (1.2-1.4 gms/kgBW). Will continue to monitor pertinent labs and reassess nutrient need prn Labs: POC Gluc 131; 04/12/19 Gluce 110 H, Na 135 L, BUN 30 H, Cr 6.60 H, Ca 7.5 L, Phos 5.0 H Skin: Alan scale 18, mod risk, s/p debridement wounds per cook vacuum kettle. Pls refer to scow captain's notes yesterday for further details. GI: Pt had 2x BM yesterday per cook vacuum kettle. PES: Altered nutrition related lab values r/t acute/chronic medical condition aeb elev RFT severe hypoalb, hypocalcemia, elev A1C, hyperglycemia Decreased nutrient needs r/t adiposity aeb pt`s high BMI of 39.9 kgm2 Will continue to monitor NPO status/PO intake, skin status, pertinent labs and weight trend. F/u in 2 to 3 days. Rec.: 1.) Resume oral diet (CCHO 60 gms/meal, Renal std diet( when medically appropriate. 2.) Consider Nephrovite daily and vit C 500 mgs BID. 3.) If Albumin level continues trending down, consider Prostat 1 pkt BID. 4.) Refer to CDE/RD for further nutrition education and weight monitoring upon discharged. 5.) Continue current plan of care.
[2019-04-13] MEDS ORDERED: TETRACAINE 1% INJ 2 ML VIAL IJ ONE (14:56)
--- NOTE | 2019-04-13 15:45 | NUR ---
PT TRANSPORTED TO PRE-OP. NO DISTRESS AT MOMENT.
[2019-04-13] MEDS ORDERED: SODIUM CHLORIDE LOCK 20 ML ONE (16:10)
[2019-04-13] MEDS ORDERED: PROPOFOL 10 MG/ML 20 ML IV ONE (16:10)
[2019-04-13] MEDS ORDERED: METOCLOPRAMIDE HCL 5MG/ml INJ 2ml VIAL ONE (16:10)
[2019-04-13] MEDS ORDERED: fentaNYL CITRATE 100 MCG/2 ML VL ONE (16:10)
[2019-04-13] MEDS ORDERED: MIDAZOLAM HCL 1MG/1ML-2 ML VIAL ONE ×3 (16:10→17:02)
[2019-04-13] MEDS ORDERED: ceFAZolin 1GM/50ML 50 ML IV ONE (16:34)
[2019-04-13] MEDS: TAMSULOSIN HYDROCHLORIDE 0.4 MG CAP PO SCH (17:46)
[2019-04-13] MEDS ORDERED: ACCU-CHEK COMFORT CURVE STRIP VI ONE (18:15)
[2019-04-13] MEDS ORDERED: METOCLOPRAMIDE HCL 5MG/ml INJ 2ml VIAL IV ONE (18:15)
[2019-04-13] MEDS ORDERED: HYDROmorphone HCL 2 MG/ML VL IV PRN (18:15)
--- NOTE | 2019-04-13 19:05 | NUR ---
REPORT GIVEN TO ONCOMING RN. PT NOT YET IN UNIT. ALL QUESTIONS AND CONCERNS ADDRESSED.
--- NOTE | 2019-04-13 19:10 | NUR ---
Opening shift note Patient back to room via bed/gurney assisted by OR nurse. Patient's dressing to right foot saturated with moderate amount of red blood. OR nurse provided chux underneath right foot. Patient's respiration even and unlabored, complained of 8/10 pain to right foot. Will medicate per MAR. Plan of care discussed, patient verbalized understanding.
--- NOTE | 2019-04-13 20:10 | NUR ---
Patient's dressing reinforced with 4x4, abdominal pad and kerlix. New chux provided. Will continue to monitor.
--- NOTE | 2019-04-13 21:10 | NUR ---
Noted dressing moderately saturated with red blood. Dressing reinforced with more coban with pressure and elevated lower extremity with pillow.
--- NOTE | 2019-04-13 21:15 | NUR ---
Paged Dr. Madison for patient's dressing with moderate drainage. Pt's vital signs within normal levels. Awaiting call back.
--- NOTE | 2019-04-13 21:30 | NUR ---
Received call back from Dr. Madison. Per , to start the blood transfusion as soon as available. No further order received at this time. Awaiting type and screen result and availability of blood at this time. Will continue to monitor.
[2019-04-13] MEDS: ATORVASTATIN 20 MG TAB PO SCH (21:31)
[2019-04-14] VITALS (9 sets, daily range): BP systolic 128–148; BP diastolic 60–87
[2019-04-14] MEDS: HYDROcodone-ACET 5/325MG TAB PO PRN (00:03)
[2019-04-14] MEDS: MORPHINE SULF INJ 2 MG/ML SYRINGE 1ML IV PRN ×3 (00:38→08:25)
--- NOTE | 2019-04-14 01:50 | NUR ---
Dr. Jha at bedside with new order received.
[2019-04-14] MEDS: LINEZOLID 600MG/300ML 300 ML IV SCH ×2 (02:17→14:20)
--- NOTE | 2019-04-14 05:09 | NUR ---
Lab draw done from the PICC line. Vials handed to nba player at bedside.
--- NOTE | 2019-04-14 05:10 | NUR ---
Pt refused linen change. Pt stated, he does not want to be moved at this time due to pain to right foot. Per pt, will have linen change only later in the day.
[2019-04-14 05:57] LABS: Basophils # (auto) 0.1 uL; Eosinophils # (auto) 0.3 uL; Lymphocytes # (auto) 1.2 uL; Neutrophils % (auto) 70.6 % (37.0-80.0); Nucleated Red Blood Cells % 0.1 %; White Blood Cell 6.6 10^3/uL (4.4-10.8)
[2019-04-14 06:01] LABS: Basophils % (auto) 1.3 % (0.0-2.0); Eosinophils % (auto) 4.6 % (0.0-7.0); Hematocrit 24.5 % (41.0-53.0); Lymphocytes % (auto) 18.7 % (10.0-50.0); Mean Corpuscular Hemoglobin 29.7 pg (28.0-32.0); Mean Corpuscular Hgb Conc. 32.8 g/dL (32.0-36.0); Mean Corpuscular Volume 90.6 fL (80.0-100.0); Monocytes # (auto) 0.3 uL; Monocytes % (auto) 4.8 % (0.0-12.0); Neutrophils # (auto) 4.6 uL; Platelet Count (auto) 239 10^3/uL (140-450); Red Cell Distribution Width 19.4 % (11.8-14.3)
[2019-04-14 06:09] LABS: BUN/Creatinine Ratio 3.7; Potassium 4.8 mmol/L (3.5-5.1)
[2019-04-14] MEDS: InsuLIN REG 1unit/0.01ml Soln (100units/ml) SC SCH ×4 (06:15→21:58)
[2019-04-14] MEDS: ACCU-CHEK COMFORT CURVE STRIP VI SCH ×4 (06:15→21:56)
[2019-04-14] MEDS ORDERED: SODIUM CHL 0.9% 1000 ML BAG XX ONE (07:00)
--- NOTE | 2019-04-14 07:20 | NUR ---
Opening Shift Note Assumed care of patient, awake and alert. Patient with dried blood on bed sheets; patient agreeable to change sheets after dialysis. Instructed on POC and to call for assist PRN, will continue to monitor for changes Q1hr and PRN.
--- NOTE | 2019-04-14 07:30 | NUR ---
Hemodialysis Dialysis nurse at bedside.
[2019-04-14] MEDS: CALCIUM ACETATE 667 MG CAP PO SCH ×3 (08:25→18:28)
[2019-04-14] MEDS: SEVELAMER 800 MG TAB PO SCH ×3 (08:25→18:28)
[2019-04-14] MEDS: FUROSEMIDE 40 MG TAB PO SCH (10:00)
[2019-04-14] MEDS: CARVEDILOL 3.125 MG TAB PO SCH ×2 (10:00→21:55)
[2019-04-14] MEDS: amLODIPine BESYLATE 5 MG TAB PO SCH (10:00)
[2019-04-14] MEDS: ERTAPENEM SOD INJ 0.5 GM in SODIUM CHL 0.9% 50 ML IV SCH (11:48)
[2019-04-14] MEDS: ASPirin 81 mg TAB PO SCH (11:51)
[2019-04-14] MEDS: FAMOTIDINE 20 MG TAB PO SCH (11:51)
[2019-04-14] MEDS: SODIUM CHLOR 0.9% PF (SALINE LOCK) 10ML VIAL/SYR IV SCH ×2 (11:51→21:55)
--- NOTE | 2019-04-14 11:53 | NUR ---
Hemodialysis complete Dialysis 3L removed
--- NOTE | 2019-04-14 15:00 | NUR ---
Wound Vac Per combination machine tender wound vac to be placed tomorrow.
--- NOTE | 2019-04-14 16:30 | NUR ---
PICC line dressing change PICC line dressing changed using sterile technique.
[2019-04-14] MEDS: TAMSULOSIN HYDROCHLORIDE 0.4 MG CAP PO SCH (18:27)
--- NOTE | 2019-04-14 19:30 | NUR ---
Opening Shift Note Assumed care of patient, awake and alert. Patient verbalizes pain on right foot and rates it as 8/10. Will medicate and reassess pain as ordered. Instructed on POC and to call for assist PRN, will continue to monitor for changes Q1hr and PRN.
[2019-04-14] MEDS ORDERED: EPOETIN ALFA 10,000 UNIT/1 ML VIAL SC ONE (21:00)
[2019-04-14] MEDS: HYDROmorphone HCL 2 MG/ML VL IV PRN (21:03)
[2019-04-14] MEDS: ATORVASTATIN 20 MG TAB PO SCH (21:55)
--- NOTE | 2019-04-15 01:00 | NUR ---
DRESSING ANDRES HAWKINS MD AWARE PER MILDRED CANSECO. REINFORCED DRESSING, ELEVATED RIGHT FOOT ON PILLOWS. WILL CONTINUE TO MONITOR.
[2019-04-15] MEDS: LINEZOLID 600MG/300ML 300 ML IV SCH ×2 (02:26→14:23)
[2019-04-15 05:00] VITALS: BP 141/67
[2019-04-15] MEDS: ACCU-CHEK COMFORT CURVE STRIP VI SCH ×4 (06:35→22:00)
[2019-04-15] MEDS: InsuLIN REG 1unit/0.01ml Soln (100units/ml) SC SCH ×4 (06:35→22:45)
[2019-04-15 07:37] LABS: Basophils # (auto) 0.1 uL; Basophils % (auto) 0.7 % (0.0-2.0); Eosinophils # (auto) 0.1 uL; Mean Corpuscular Hemoglobin 30.2 pg (28.0-32.0); Monocytes # (auto) 0.4 uL; Neutrophils % (auto) 85.9 % (37.0-80.0)
[2019-04-15 07:40] LABS: Eosinophils % (auto) 0.8 % (0.0-7.0); Hematocrit 22.7 % (41.0-53.0); Hemoglobin 7.5 g/dL (13.5-17.5); Lymphocytes # (auto) 0.8 uL; Lymphocytes % (auto) 8.4 % (10.0-50.0); Mean Corpuscular Hgb Conc. 32.9 g/dL (32.0-36.0); Mean Corpuscular Volume 91.9 fL (80.0-100.0); Monocytes % (auto) 4.2 % (0.0-12.0); Neutrophils # (auto) 8.3 uL; Platelet Count (auto) 193 10^3/uL (140-450); Red Blood Cells 2.47 10^6/uL (4.5-5.90); Red Cell Distribution Width 19.4 % (11.8-14.3); White Blood Cell 9.6 10^3/uL (4.4-10.8)
[2019-04-15 07:42] LABS: BUN/Creatinine Ratio 3.4; Calcium 7.3 mg/dL (8.5-10.1); Potassium 4.6 mmol/L (3.5-5.1)
[2019-04-15] MEDS: CALCIUM ACETATE 667 MG CAP PO SCH ×3 (08:07→17:53)
[2019-04-15] MEDS: SEVELAMER 800 MG TAB PO SCH ×3 (08:07→17:53)
--- NOTE | 2019-04-15 08:30 | NUR ---
WOUND CARE NOTE: HOME WOUND VAC REQUEST FORM FILLED OUT, DR. LOVE SIGNED FORM AT THIS TIME. VAC REQUEST FORM WILL BE GIVEN TO COMPOSITION MOLDER/CASE MANAGEMENT FOR THEIR ACTION.
[2019-04-15 08:34] LABS: INR 1.13 (0.9-1.15); Partial Thromboplastin Time 32.5 sec (23.64-32.05)
[2019-04-15 09:00] VITALS: BP 125/65
--- NOTE | 2019-04-15 09:00 | NUR ---
WOUND CARE NOTE: IN TO APPLY WOUND VAC TO POST DEBRIDED RIGHT FOREFOOT AT THIS TIME. PATIENT UNDERWENT WOUND DEBRIDEMENT OF RIGHT FOREFOOT STUMP ON 04/13/19. DR. ROSADO HAS ORDERED WOUND VAC PLACEMENT. POST SURGICAL DRESSING REMOVED. WOUND HAS BEEN OOZING SANGUINOUS DRAINAGE FROM WOUND BED, AND CONTINUES TO DO SO AT THIS TIME. WOUND VAC IS CONTRAINDICATED AT THIS TIME. DR. ROSADO AND DR. MELGAR BOTH NOTIFIED. DR. ROSADO IN AGREEMENT TO NOT PLACE WOUND VAC ON WOUND, UNTIL BLEEDING STOPS. APPLIED MILD PRESSURE DRESSING ON AT THIS TIME. OF NOTE, PATIENT ADMITTED TO BEARING WEIGHT TO RIGHT FOOT BY GETTING UP TO THE BATHROOM MULTIPLE TIMES DAILY. PATIENT EDUCATED TO NOT BE BEARING WEIGHT ON POST SURGICAL FOOT. PATIENT VERBALIZED UNDERSTANDING AT THIS TIME. ADVISED BEDSIDE NURSE TO PLACE COMMODE OR URINAL/BEDPAN IN ROOM. RIGHT FOOT IS ELEVATED UP ONTO PILLOWS FOR EDEMA CONTROL. WOUND CARE TEAM WILL CONTINUE TO MONITOR. Addendum: 04/15/19 at 1856 by Komal Ayala RN Amended: Links added.
[2019-04-15] MEDS: ASPirin 81 mg TAB PO SCH (10:32)
[2019-04-15] MEDS: SODIUM CHLOR 0.9% PF (SALINE LOCK) 10ML VIAL/SYR IV SCH ×2 (10:32→22:40)
[2019-04-15] MEDS: ERTAPENEM SOD INJ 0.5 GM in SODIUM CHL 0.9% 50 ML IV SCH (10:32)
[2019-04-15] MEDS: amLODIPine BESYLATE 5 MG TAB PO SCH (10:33)
[2019-04-15] MEDS: CARVEDILOL 3.125 MG TAB PO SCH ×2 (10:33→22:40)
[2019-04-15] MEDS: FUROSEMIDE 40 MG TAB PO SCH (10:33)
[2019-04-15] MEDS: FAMOTIDINE 20 MG TAB PO SCH (10:34)
--- NOTE | 2019-04-15 12:17 | NUR ---
re-assessment Per consult home wound vac. order and clinical info sent to [facility] fax [phone] office [phone]. Waiting on reply back now. Addendum: 04/15/19 at 1219 by Gem Joseph Amended: Links added.
[2019-04-15 13:00] VITALS: BP 120/64
[2019-04-15] MEDS: HYDROmorphone HCL 2 MG/ML VL IV PRN ×3 (13:41→22:39)
[2019-04-15] MEDS ORDERED: ZOLPIDEM TARTRATE 5 MG TAB PO PRN (13:45)
[2019-04-15] MEDS ORDERED: MORPHINE SULF INJ 2 MG/ML SYRINGE 1ML IV PRN (13:45)
[2019-04-15] MEDS: HYDROcodone-ACET 5/325MG TAB PO PRN (15:59)
--- NOTE | 2019-04-15 16:18 | NUR ---
re-assessment Per Unique at [facility] patient has been approved for wound vac. Per Unique she will have wound vac delivered to bedside. Addendum: 04/15/19 at 1619 by Gem LOYD Amended: Links added.
[2019-04-15 16:30] VITALS: BP 107/53
[2019-04-15] MEDS: TAMSULOSIN HYDROCHLORIDE 0.4 MG CAP PO SCH (17:53)
--- NOTE | 2019-04-15 19:30 | NUR ---
Opening Shift Note Assumed care of patient, awake and alert. No S/S of distress/SOB or pain noted. Instructed on POC and to call for assist PRN, will continue to monitor for changes Q1hr and PRN. Bed locked and in lowest position, call light within reach.
[2019-04-15 22:00] VITALS: BP 123/68
[2019-04-15] MEDS: ATORVASTATIN 20 MG TAB PO SCH (22:40)
[2019-04-16] VITALS (11 sets, daily range): BP systolic 122–173; BP diastolic 54–81
[2019-04-16] MEDS: LINEZOLID 600MG/300ML 300 ML IV SCH ×2 (02:40→14:43)
[2019-04-16] MEDS: HYDROmorphone HCL 2 MG/ML VL IV PRN ×3 (02:40→20:10)
--- NOTE | 2019-04-16 02:45 | NUR ---
DRESSING ANDRES HAWKINS MD AWARE PER DAY AJITH Claire. REINFORCED DRESSING, ELEVATED RIGHT FOOT ON PILLOWS. WILL CONTINUE TO MONITOR.
--- NOTE | 2019-04-16 06:24 | NUR ---
BLOOD TRANSFUSION BEGAN Blood Transfusion began, Dialysis nurse at bedside. Previtals taken, blood transfusion protocol verified. will continue to monitor pt.
[2019-04-16] MEDS: ACCU-CHEK COMFORT CURVE STRIP VI SCH ×4 (06:33→23:00)
[2019-04-16] MEDS: InsuLIN REG 1unit/0.01ml Soln (100units/ml) SC SCH ×4 (06:33→22:00)
--- NOTE | 2019-04-16 06:39 | NUR ---
BLOOD TRANSFUSION Blood transfusion 15 minute time has passes, no reaction, pt tolerating procedure well. Dialysis nurse at bedside. will continue to monitor pt.
[2019-04-16] MEDS ORDERED: SODIUM CHL 0.9% 1000 ML BAG XX ONE (07:00)
--- NOTE | 2019-04-16 07:15 | NUR ---
CLOSING NOTE Report endorsed to day AJITH Claire, informed that pt is currently receiving blood with dialysis nurse, Pt resting no s/sx's of distress or noted
[2019-04-16] MEDS: SEVELAMER 800 MG TAB PO SCH ×3 (08:00→18:00)
[2019-04-16] MEDS: CALCIUM ACETATE 667 MG CAP PO SCH ×3 (08:00→18:00)
[2019-04-16] MEDS: SODIUM CHLOR 0.9% PF (SALINE LOCK) 10ML VIAL/SYR IV SCH ×2 (09:31→22:00)
[2019-04-16] MEDS: ASPirin 81 mg TAB PO SCH (09:31)
[2019-04-16] MEDS: CARVEDILOL 3.125 MG TAB PO SCH ×2 (09:33)
[2019-04-16] MEDS: amLODIPine BESYLATE 5 MG TAB PO SCH (09:34)
[2019-04-16] MEDS: FUROSEMIDE 40 MG TAB PO SCH (09:34)
[2019-04-16] MEDS: FAMOTIDINE 20 MG TAB PO SCH (09:34)
[2019-04-16] MEDS: ERTAPENEM SOD INJ 0.5 GM in SODIUM CHL 0.9% 50 ML IV SCH (10:00)
--- NOTE | 2019-04-16 12:30 | NUR ---
WOUND CARE NOTE: IN TO ASSESS PATIENT'S FOOT WOUND FOR WOUND VAC APPLICATION. DRESSING REMOVED. PATIENT'S WOUND CONTINUES TO OOZE LIGHT AMOUNTS OF SANGUINOUS DRAINAGE. OVERNIGHT, LARGE CLOT HAS FORMED WITHIN WOUND BED. LEFT IT INTACT. REDRESSED WOUND WITH XEROFORM, OPTIFOAM, KERLIX. CONTINUED TO ELEVATE FOOT UP ON PILLOWS. REEDUCATED PATIENT ON NOT BEARING WEIGHT ON AFFECTED FOOT. PATIENT VERBALIZED UNDERSTANDING, STATING THAT HE HAS NOT BEEN BEARING WEIGHT ON FOOT, AND WILL CONTINUE WITH NO WEIGHT BEARING. WOUND VAC CONTINUES TO BE CONTRAINDICATED AT THIS TIME.
--- NOTE | 2019-04-16 12:30 | NUR ---
WOUND CHANGE WOUND CARE NURSE CAME TO ASSESS WOUND. SLIGHT BLEEDING AT SITE OBSERVED. REPLACED BANDAGE. NO S/S OF DISTRESS. WILL CONTINUE TO MONITOR.
[2019-04-16] MEDS ORDERED: cloNIDine HCL 0.1 MG TAB PO PRN (12:45)
--- NOTE | 2019-04-16 14:41 | NUR ---
Nutrition Follow-up Notes Wt.: 123.6 kg based on bed scale today. Pt's on oxygen via nasal cannula, asleep, in isolation room, no immediate family member at bedside during rounds this morning. Pt had dialysis 04/14/19, no signs of distress note earlier, currently on CCHO 60 gms/meal, Renal Std diet diet with Glucerna Shakes 1 carton TID and Prostat 1 pkt BID, has fair PO intake aeb 70% ave. consumed meals (x5) in last 2.5 days. Est. Needs IBW [id number] kcal (30-35 kcal/kgBW), 90-105 gms pro (1.2-1.4 gms/kgBW). Will continue to monitor pertinent labs and reassess nutrient need prn Labs: POC Gluc 124 H; 04/15/19 Gluc 139 H, CO2 33 H, Cr 5.25 H, Ca 7.3 L, Alb 1.7 L Skin: Alan scale 18, mod risk, s/p debridement wounds per finishing department supervisor. Pls refer to information clerk cashier's notes yesterday for further details. GI: Pt had 2x BM 04/12/19 per finishing department supervisor. PES: Altered nutrition related lab values r/t acute/chronic medical condition aeb elev RFT severe hypoalb, hypocalcemia, elev A1C, hyperglycemia Decreased nutrient needs r/t adiposity aeb pt`s high BMI of 39.9 kgm2 Will continue to monitor PO intake, skin status, pertinent labs and weight trend. F/u in 3 to 5 days. Rec.: 1.) Consider enter order for daily Nephrovite and Asc acid 500 mgs BID, already e-signed by ). 2.) Continue close supervision with meals. 3.) Refer to CDE/RD for further nutrition education and weight monitoring upon discharged. 4.) Continue current plan of care.
--- NOTE | 2019-04-16 15:23 | NUR ---
BLEEDING PATIENT CALLED TO REPORT BLEEDING ON RIGHT FOOT. BANDAGE SHOWING BRIGHT RED DRAINAGE THROUGHOUT. REENFORCE BANDAGE. ELEVATED EXTREMITY. PATIENT NOT COMPLAINING OF PAIN OR DIZZINESS OR WEAKNESS. EUSEBIO KIM. WILL CONTINUE TO MONITOR.
--- NOTE | 2019-04-16 15:56 | NUR ---
REASSESSED BANDAGE REASSESSED BANDAGE. BLEEDING GOING THROUGH BANDAGE. REENFORJOE AND EUSEBIO KIM. WILL CONTINUE TO MONITOR.
--- NOTE | 2019-04-16 16:00 | NUR ---
WOUND CARE NOTE: NOTIFIED BY BEDSIDE NURSE THAT PATIENT'S FOOT HAS BEGUN TO BLEED MORE AGAIN, SATURATING HIS DRESSING. BEDSIDE NURSE UNABLE TO NOTIFY GRANITE POLISHER BY CALLING HIS OFFICE. NOTIFIED DR. ROSADO AT THIS TIME BY CELL PHONE OF PATIENT'S CONTINUED BLEEDING TO FOOT. DR. ROSADO WILL BE SPEAKING WITH BEDSIDE NURSE SHORTLY FOR NEW ORDERS/INSTRUCTIONS.
[2019-04-16 16:52] LABS: Hematocrit 19.7 % (41.0-53.0)
[2019-04-16 16:59] LABS: Hemoglobin 6.6 g/dL (13.5-17.5)
[2019-04-16] MEDS: Glucerna Carbsteady SHAKE Vanilla 8oz PO SCH (18:00)
[2019-04-16] MEDS: TAMSULOSIN HYDROCHLORIDE 0.4 MG CAP PO SCH (18:00)
[2019-04-16] MEDS: Pro-Stat SF 30ml Vanilla PO SCH (18:00)
--- NOTE | 2019-04-16 19:30 | NUR ---
Opening Shift Note Assumed care of patient, awake and alertx4. PICC line to BROOKE patent and infusing blood. IV to R FA infiltrated. R FA edematous. Will discontinue IV. Right foot dressing saturated. Waiting on Dr. Madison to call with orders. Will reinforce at this time. Placed blankets and towels under right knee/leg to keep elevated. Patient tolerating well. No adverse reaction from blood transfusion. Will. continue to monitor No S/S of distress. Instructed on POC and to call for assist PRN, will continue to monitor for changes Q1hr and PRN.
[2019-04-16] MEDS ORDERED: EPOETIN ALFA 10,000 UNIT/1 ML VIAL SC ONE (21:00)
--- NOTE | 2019-04-16 21:00 | NUR ---
Finished blood transfusion. No adverse reactions noted. Will start next transfusion after med pass. Removed IV to R Fa. Held pressure and covered with gauze. No c/o pain to arm . Medicated for pain to foot. Call light within reach
--- NOTE | 2019-04-16 23:00 | NUR ---
Patient found sitting up in chair. Nose bleeding. Large amount of blood found all over linens, floor and patients gown. Towels given. Changed linens and ice pack given as well. Patient knows not to get OOB but says he had to due to the bleeding. Helped clean patient up and bleeding stopped around 30 minutes later. Will be administering blood per orders soon.
[2019-04-16] MEDS: ATORVASTATIN 20 MG TAB PO SCH (23:56)
[2019-04-17] VITALS (12 sets, daily range): BP systolic 106–165; BP diastolic 51–78
--- NOTE | 2019-04-17 02:00 | NUR ---
Lab cannot distribute blood until type and screen is redone. Waiting on lab to bring supplies and will pull from PICC and send to lab. No distress at this time
[2019-04-17] MEDS: LINEZOLID 600MG/300ML 300 ML IV SCH ×2 (02:46→14:00)
[2019-04-17] MEDS: HYDROmorphone HCL 2 MG/ML VL IV PRN ×3 (05:03→20:19)
[2019-04-17 05:57] LABS: BUN/Creatinine Ratio 4.1; Calcium 6.9 mg/dL (8.5-10.1); Potassium 4.3 mmol/L (3.5-5.1)
[2019-04-17] MEDS: ACCU-CHEK COMFORT CURVE STRIP VI SCH ×4 (06:54→22:18)
[2019-04-17] MEDS: InsuLIN REG 1unit/0.01ml Soln (100units/ml) SC SCH ×4 (06:58→22:00)
[2019-04-17 07:17] LABS: Basophils # (auto) 0.1 uL; Eosinophils # (auto) 0.2 uL; Monocytes # (auto) 0.4 uL
[2019-04-17 07:18] LABS: Basophils % (auto) 0.9 % (0.0-2.0); Eosinophils % (auto) 2.9 % (0.0-7.0); Hematocrit 18.5 % (41.0-53.0); Lymphocytes # (auto) 1.1 uL; Lymphocytes % (auto) 15.3 % (10.0-50.0); Mean Corpuscular Hemoglobin 30.5 pg (28.0-32.0); Mean Corpuscular Volume 89.8 fL (80.0-100.0); Monocytes % (auto) 5.3 % (0.0-12.0); Neutrophils # (auto) 5.5 uL; Neutrophils % (auto) 75.6 % (37.0-80.0); Nucleated Red Blood Cells % 0.1 %; Platelet Count (auto) 157 10^3/uL (140-450); Red Blood Cells 2.06 10^6/uL (4.5-5.90); Red Cell Distribution Width 17.9 % (11.8-14.3); White Blood Cell 7.3 10^3/uL (4.4-10.8)
[2019-04-17 07:33] LABS: Hemoglobin 6.3 g/dL (13.5-17.5)
[2019-04-17] MEDS: Glucerna Carbsteady SHAKE Vanilla 8oz PO SCH ×3 (08:58→16:52)
[2019-04-17] MEDS: Pro-Stat SF 30ml Vanilla PO SCH ×2 (08:58→16:51)
[2019-04-17] MEDS: CALCIUM ACETATE 667 MG CAP PO SCH ×3 (08:59→16:51)
[2019-04-17] MEDS: SEVELAMER 800 MG TAB PO SCH ×3 (08:59→16:51)
[2019-04-17] MEDS: ERTAPENEM SOD INJ 0.5 GM in SODIUM CHL 0.9% 50 ML IV SCH (10:00)
[2019-04-17] MEDS: FAMOTIDINE 20 MG TAB PO SCH (10:00)
[2019-04-17] MEDS: ASPirin 81 mg TAB PO SCH (10:00)
--- NOTE | 2019-04-17 10:30 | NUR ---
WOUND CARE NOTE: PATIENT'S RIGHT FOOT WOUND CONTINUES TO BLEED. PATIENT WILL BE UNDERGOING SURGERY WITH DR. ROSADO THIS AFTERNOON. WOUND VAC CONTINUES TO BE CONTRAINDICATED. DRY DRESSING CONTINUES TO BE REINFORCED. WOUND CARE TEAM WILL CONTINUE TO MONITOR.
[2019-04-17] MEDS: SODIUM CHLOR 0.9% PF (SALINE LOCK) 10ML VIAL/SYR IV SCH ×2 (12:00→22:18)
[2019-04-17] MEDS ORDERED: DESMOPRESSIN INJECTION 20 MCG in SODIUM CHL 0.9% 50 ML IV ONE (13:30)
[2019-04-17] MEDS: CARVEDILOL 3.125 MG TAB PO SCH ×2 (14:45→22:18)
[2019-04-17] MEDS: FUROSEMIDE 40 MG TAB PO SCH (14:46)
[2019-04-17] MEDS: amLODIPine BESYLATE 5 MG TAB PO SCH (14:47)
[2019-04-17] MEDS ORDERED: SODIUM CHLORIDE LOCK 10 ML ONE (15:42)
[2019-04-17] MEDS ORDERED: KETAMINE HCL 1 ML ONE (15:42)
[2019-04-17] MEDS ORDERED: PROPOFOL 10 MG/ML 20 ML IV ONE (15:42)
[2019-04-17] MEDS ORDERED: fentaNYL CITRATE 100 MCG/2 ML VL ONE (15:42)
[2019-04-17] MEDS ORDERED: ONDANSETRON HCL 4 MG/2 ML VIAL ONE (15:42)
[2019-04-17] MEDS ORDERED: MIDAZOLAM HCL 1MG/1ML-2 ML VIAL ONE (15:42)
[2019-04-17] MEDS: TAMSULOSIN HYDROCHLORIDE 0.4 MG CAP PO SCH (17:24)
[2019-04-17 17:39] LABS: Basophils # (auto) 0.1 uL; Eosinophils # (auto) 0.2 uL; Hemoglobin 7.5 g/dL (13.5-17.5); Lymphocytes # (auto) 0.9 uL; Lymphocytes % (auto) 10.6 % (10.0-50.0); Monocytes # (auto) 0.3 uL
[2019-04-17 17:40] LABS: Basophils % (auto) 0.7 % (0.0-2.0); Eosinophils % (auto) 2.5 % (0.0-7.0); Hematocrit 22.4 % (41.0-53.0); Mean Corpuscular Hemoglobin 30.1 pg (28.0-32.0); Mean Corpuscular Hgb Conc. 33.5 g/dL (32.0-36.0); Mean Corpuscular Volume 89.9 fL (80.0-100.0); Monocytes % (auto) 3.8 % (0.0-12.0); Neutrophils # (auto) 6.7 uL; Neutrophils % (auto) 82.4 % (37.0-80.0); Platelet Count (auto) 157 10^3/uL (140-450); Red Blood Cells 2.49 10^6/uL (4.5-5.90); Red Cell Distribution Width 16.7 % (11.8-14.3); White Blood Cell 8.1 10^3/uL (4.4-10.8)
[2019-04-17 17:44] LABS: INR 1.12 (0.9-1.15)
[2019-04-17 18:05] LABS: INR 1.12 (0.9-1.15); Partial Thromboplastin Time 34.2 sec (23.64-32.05)
[2019-04-17] MEDS ORDERED: METOCLOPRAMIDE HCL 5MG/ml INJ 2ml VIAL IV ONE (18:30)
[2019-04-17] MEDS ORDERED: HYDROmorphone HCL 2 MG/ML VL IV PRN (18:30)
[2019-04-17] MEDS ORDERED: ceFAZolin 1GM VL ONE (19:01)
--- NOTE | 2019-04-17 20:30 | NUR ---
Paged Dr. Madison regarding right foot still bleeding throughout bandage. Reinforced bandage. Will continue to monitor. Awaiting call back.
--- NOTE | 2019-04-17 21:30 | NUR ---
FIRST UNIT OF BLOOD COMPLETE. WILL REDRAW H&H IN [address] REN. MD RECOMMENDATIONS IS THAT HGB AT 10 AND HCT 30 BECAUSE PATIENT IS POST OP. WILL GIVE SECOND UNIT OF BLOOD IF H&H IS LESS THAN THE RECOMMENDED RANGE PER MD SUGGESTION.
[2019-04-17] MEDS: ATORVASTATIN 20 MG TAB PO SCH (22:18)
[2019-04-17 23:54] LABS: Hemoglobin 7.2 g/dL (13.5-17.5)
[2019-04-17 23:56] LABS: Hematocrit 21.3 % (41.0-53.0)
[2019-04-18] VITALS (15 sets, daily range): BP systolic 116–155; BP diastolic 60–80
--- NOTE | 2019-04-18 03:40 | NUR ---
BLOOD TRANSFUSION COMPLETE VITALS SIGNS: TEMP 98.5, 92% O2, HR 82, BP 155/75, RR 18. PATIENT TOLERATED WELL. WILL CONTINUE TO MONITOR.
[2019-04-18] MEDS: LINEZOLID 600MG/300ML 300 ML IV SCH ×2 (03:49→13:52)
[2019-04-18] MEDS: InsuLIN REG 1unit/0.01ml Soln (100units/ml) SC SCH ×4 (06:29→22:00)
[2019-04-18] MEDS: ACCU-CHEK COMFORT CURVE STRIP VI SCH ×4 (06:30→22:00)
[2019-04-18 07:04] LABS: Eosinophils # (auto) 0.2 uL; Hemoglobin 7.6 g/dL (13.5-17.5); Monocytes # (auto) 0.3 uL; Red Cell Distribution Width 17.1 % (11.8-14.3)
[2019-04-18 07:05] LABS: Basophils # (auto) 0.1 uL; Basophils % (auto) 1.3 % (0.0-2.0); Eosinophils % (auto) 3.2 % (0.0-7.0); Hematocrit 22.3 % (41.0-53.0); Lymphocytes % (auto) 15.8 % (10.0-50.0); Mean Corpuscular Hemoglobin 29.9 pg (28.0-32.0); Mean Corpuscular Volume 87.8 fL (80.0-100.0); Neutrophils # (auto) 4.6 uL; Neutrophils % (auto) 74.7 % (37.0-80.0); Platelet Count (auto) 137 10^3/uL (140-450); Red Blood Cells 2.54 10^6/uL (4.5-5.90); White Blood Cell 6.2 10^3/uL (4.4-10.8)
[2019-04-18 07:39] LABS: BUN/Creatinine Ratio 5.8; Calcium 7.3 mg/dL (8.5-10.1); Potassium 4.4 mmol/L (3.5-5.1)
--- NOTE | 2019-04-18 07:46 | NUR ---
Opening Patient in bed, asleep, bed in lowest position, call light within reach. No distress noted at this time. Patient is having complaints of pain, will administer medication as ordered. Per noc nurse, patient had been bleed profusely yesterday and some of last night. She reinforced the dressing and the bleeding has stopped. Current HGB 7.6 HCT 22.5 will endorse to hospitalist. Crea 6.20 BUN 36 dialysis patient, received last 04/16/19 however unknown liter amount removed. next scheduled dialysis is 04/19/19 per noc nurse, MD Madison wants the patient to be non weight bearing on the R foot. Debridement with Los 04/13/1904/17 per noc nurse MD madison took patient to OR in attempt to stop bleeding, but they reported it had stopped bleeding. Then afterwards patient came back to noc nurse and it started bleeding again; this is when she reinforced dressing paged los and patients foot had actually stopped bleeding . Currently dressing looks intact, and it is not bleeding. Awaiting next order from hospitalist or MD madison. will continue to monitor this patient.
[2019-04-18] MEDS: Glucerna Carbsteady SHAKE Vanilla 8oz PO SCH ×3 (08:00→18:00)
[2019-04-18] MEDS: Pro-Stat SF 30ml Vanilla PO SCH ×2 (08:00→18:00)
--- NOTE | 2019-04-18 09:00 | NUR ---
WOUND CARE NOTE: channel rougher spoke with Dr Madison regarding status of wound and need for wound vac. Per Dr Madison, nursing is to continue with daily dressing changes of gauze pressure dressings until bleeding has stopped. Wound vac may be placed in the next day or two if bleeding has stopped. Wound care team will continue to follow patient.
[2019-04-18] MEDS: HYDROmorphone HCL 2 MG/ML VL IV PRN ×3 (09:04→20:41)
[2019-04-18] MEDS: FAMOTIDINE 20 MG TAB PO SCH (09:10)
[2019-04-18] MEDS: CALCIUM ACETATE 667 MG CAP PO SCH ×3 (09:10→16:58)
[2019-04-18] MEDS: CARVEDILOL 3.125 MG TAB PO SCH ×2 (09:11→23:14)
[2019-04-18] MEDS: SEVELAMER 800 MG TAB PO SCH ×3 (09:12→16:58)
[2019-04-18] MEDS: FUROSEMIDE 40 MG TAB PO SCH (09:12)
[2019-04-18] MEDS: amLODIPine BESYLATE 5 MG TAB PO SCH (09:12)
[2019-04-18] MEDS: SODIUM CHLOR 0.9% PF (SALINE LOCK) 10ML VIAL/SYR IV SCH ×2 (09:13→23:10)
[2019-04-18] MEDS: ERTAPENEM SOD INJ 0.5 GM in SODIUM CHL 0.9% 50 ML IV SCH (09:34)
[2019-04-18] MEDS ORDERED: POLYETHYLENE GLYCOL 17 GM PWDR PO ONE (12:15)
[2019-04-18] MEDS ORDERED: VANCOMYCIN PER PHARMACY 0 MG IV SCH (14:00)
[2019-04-18] MEDS ORDERED: DESMOPRESSIN INJECTION 20 MCG in SODIUM CHL 0.9% 50 ML IV ONE (14:15)
[2019-04-18 14:37] LABS: Basophils # (auto) 0.1 uL; Basophils % (auto) 1.2 % (0.0-2.0); Eosinophils # (auto) 0.2 uL; Mean Corpuscular Volume 87.9 fL (80.0-100.0); Monocytes # (auto) 0.3 uL; Platelet Count (auto) 132 10^3/uL (140-450)
[2019-04-18 14:43] LABS: Eosinophils % (auto) 2.6 % (0.0-7.0); Lymphocytes % (auto) 15.3 % (10.0-50.0); Mean Corpuscular Hemoglobin 29.5 pg (28.0-32.0); Mean Corpuscular Hgb Conc. 33.6 g/dL (32.0-36.0); Neutrophils # (auto) 4.8 uL; Neutrophils % (auto) 75.9 % (37.0-80.0); Red Blood Cells 2.28 10^6/uL (4.5-5.90); White Blood Cell 6.4 10^3/uL (4.4-10.8)
[2019-04-18 14:53] LABS: INR 1.17 (0.9-1.15); Partial Thromboplastin Time 33.4 sec (23.64-32.05)
[2019-04-18 14:59] LABS: Hemoglobin 6.7 g/dL (13.5-17.5)
[2019-04-18] MEDS ORDERED: VANCOMYCIN 1,500 MG in D5W 5% 250 ML IV ONE ×2 (16:00→20:30)
[2019-04-18] MEDS: TAMSULOSIN HYDROCHLORIDE 0.4 MG CAP PO SCH (16:58)
[2019-04-18] MEDS: HYDROcodone-ACET 5/325MG TAB PO PRN ×2 (16:58→23:09)
--- NOTE | 2019-04-18 17:39 | NUR ---
NURSE NOTE AFTER ALMA'S ASSESSMENT OF THE PATIENTS WOUND HE NOTIFIED ME TO CALL HIM IF THE WOUND BEGINS TO BLEED AGAIN, ON ASSESSMENT NOW, PATIENT HAS A SMAL AMOUNT OF BLOOD, PAGED ALMA NOW
--- NOTE | 2019-04-18 17:42 | NUR ---
ALMA PER ALMA HE WANTS ME TO NOTIFY ELECTRICIAN APPRENTICE POWERHOUSE TO CALL IN THE FISCAL ECONOMIST CREW TO START SURGERY IN 1 HOUR. PAGING ELECTRICIAN APPRENTICE POWERHOUSE NOW
--- NOTE | 2019-04-18 18:06 | NUR ---
DR SCOTT ORDERS 2 MORE UNITS OF BLOOD
[2019-04-18] MEDS ORDERED: SUCCINYLCHOLINE CHLORIDE 20 MG/ML 10ML VIAL IV ONE (18:39)
[2019-04-18] MEDS ORDERED: LIDOCAINE 1% (LOCAL ANESTH.) PF 5ml SDV ONE (18:39)
[2019-04-18] MEDS ORDERED: POVIDONE IODINE 10 % TOPICAL OINT 30GM TOP ONE (18:42)
[2019-04-18] MEDS ORDERED: ceFAZolin 1GM VL ONE (18:42)
--- NOTE | 2019-04-18 18:45 | NUR ---
NURSE NOTE PACU NURSE CAME TO ADULT LITERACY INSTRUCTOR PATIENT, PATIENT'S BLOOD IS STILL TRANSFUSING, PACU NURSES ARE AWARE. SENT THE PATIENT WITH PRBCs
--- NOTE | 2019-04-18 18:50 | NUR ---
nurse note OR dr young and staff are saying the blood consent/bad is . confirmed with REUBEN in blood bank and other techs, the type and screen has been completed yesterday, and is in the chart. HOWEVER it is NOT UPDATED ON THE BAND. PER REUBEN IN BLOOD BANK, THEY DO NOT UPDATE THE BAND, THE ABC NUMBER CARRIES OVER and will stay the same. They do NOT change the dates on the bands, per the blood bank tech REUBEN . type and screen has been completed yesterday 04/17/19 consents signed yesterday 04/17/19
[2019-04-18] MEDS ORDERED: MIDAZOLAM HCL 1MG/1ML-2 ML VIAL ONE (19:01)
[2019-04-18] MEDS ORDERED: METOCLOPRAMIDE HCL 5MG/ml INJ 2ml VIAL ONE (19:04)
[2019-04-18] MEDS ORDERED: GELATIN 1 SPONGE SIZE 100 TOP ONE (19:09)
[2019-04-18] MEDS ORDERED: ONDANSETRON HCL 4 MG/2 ML VIAL IV ONE (19:30)
[2019-04-18] MEDS ORDERED: ACCU-CHEK COMFORT CURVE STRIP VI ONE (19:30)
--- NOTE | 2019-04-18 19:40 | NUR ---
closing received report from pacu nurse, will endorse to noc nurse.
--- NOTE | 2019-04-18 20:28 | NUR ---
PT BACK TO ROOM FROM PACU;REPORT RECD FROM VALORIE CANSECO;WILL CONTINUE TO MONITOR.
[2019-04-18] MEDS: ATORVASTATIN 20 MG TAB PO SCH (23:13)
[2019-04-19] VITALS (8 sets, daily range): BP systolic 126–153; BP diastolic 60–78
[2019-04-19] MEDS: HYDROmorphone HCL 2 MG/ML VL IV PRN ×3 (02:25→20:39)
[2019-04-19 05:34] LABS: Basophils # (auto) 0.1 uL; Eosinophils # (auto) 0.3 uL; Hematocrit 20.3 % (41.0-53.0); Monocytes # (auto) 0.3 uL; Neutrophils # (auto) 4.2 uL; Red Blood Cells 2.29 10^6/uL (4.5-5.90)
[2019-04-19 05:37] LABS: Basophils % (auto) 1.3 % (0.0-2.0); Lymphocytes % (auto) 16.5 % (10.0-50.0); Mean Corpuscular Hemoglobin 30.4 pg (28.0-32.0); Mean Corpuscular Hgb Conc. 34.4 g/dL (32.0-36.0); Mean Corpuscular Volume 88.5 fL (80.0-100.0); Monocytes % (auto) 5.2 % (0.0-12.0); Platelet Count (auto) 122 10^3/uL (140-450); Red Cell Distribution Width 16.4 % (11.8-14.3); White Blood Cell 5.9 10^3/uL (4.4-10.8)
[2019-04-19] MEDS: InsuLIN REG 1unit/0.01ml Soln (100units/ml) SC SCH ×4 (06:36→22:00)
[2019-04-19] MEDS: ACCU-CHEK COMFORT CURVE STRIP VI SCH ×4 (06:37→22:02)
--- NOTE | 2019-04-19 07:45 | NUR ---
Opening Note Assumed care of patient, he is A & O x 3, he is disoriented with what time of day it is, he states "I did not sleep very much", he thought it was still night time. Re-oriented patient, opened blinds. No s/s of distress at this time. Will continue to monitor Q1h and PRN.
[2019-04-19] MEDS: Pro-Stat SF 30ml Vanilla PO SCH ×2 (08:00→18:00)
[2019-04-19] MEDS: Glucerna Carbsteady SHAKE Vanilla 8oz PO SCH ×3 (08:00→18:00)
[2019-04-19 08:06] LABS: Potassium 4.4 mmol/L (3.5-5.1)
[2019-04-19 08:07] LABS: BUN/Creatinine Ratio 5.7; Calcium 6.7 mg/dL (8.5-10.1)
[2019-04-19] MEDS: amLODIPine BESYLATE 5 MG TAB PO SCH (10:00)
[2019-04-19] MEDS: CARVEDILOL 3.125 MG TAB PO SCH ×2 (10:00→22:01)
[2019-04-19] MEDS ORDERED: MORPHINE SULF INJ 2 MG/ML SYRINGE 1ML IV PRN (10:45)
--- NOTE | 2019-04-19 11:10 | NUR ---
Patient is A & O x 4 Patient states "I got up to go to the bathroom, and walked on the side of my right foot." I reminded patient not to walk on that foot, it is non-weight bearing, patient has a walker at bedside. Patient is having pain in the right foot area, will medicate per orders. There is a spot of red blood at the center or the toes on the gauze dressing. Will monitor Q1h and PRN. Bed is in low, locked position, patient was reminded to use the urinal and to use the call light as needed. POC discussed with patient.
[2019-04-19] MEDS: SEVELAMER 800 MG TAB PO SCH ×3 (11:35→18:35)
[2019-04-19] MEDS: CALCIUM ACETATE 667 MG CAP PO SCH ×3 (11:35→18:35)
[2019-04-19] MEDS: FAMOTIDINE 20 MG TAB PO SCH (11:36)
[2019-04-19] MEDS: SODIUM CHLOR 0.9% PF (SALINE LOCK) 10ML VIAL/SYR IV SCH ×2 (12:00→22:01)
[2019-04-19] MEDS: FUROSEMIDE 40 MG TAB PO SCH (12:04)
[2019-04-19 12:13] LABS: Hemoglobin 7.1 g/dL (13.5-17.5)
--- NOTE | 2019-04-19 12:14 | NUR ---
WOUND CARE NOTE: Followed up with patient's primary nurse, AJITH Chahal regarding Wound Vac application to patient's R forefoot stump wound. Per AJITH Chahal "Dr. Naik just did clipping of wound yesterday" and order nurse to continue Daily dressing change as wound still bleeding. Patient's hgb 7.0 MD order for blood transfusion today. Reminded bedside nurse, AJITH Chahal to call wound care if ok for Dr. Madison to apply wound vac.
[2019-04-19 12:16] LABS: Hematocrit 20.5 % (41.0-53.0)
[2019-04-19] MEDS: HYDROcodone-ACET 5/325MG TAB PO PRN (13:52)
--- NOTE | 2019-04-19 14:27 | NUR ---
Nutrition Follow-up Notes Wt.: 124.6 kg Pt's on oxygen via nasal cannula, asleep, in isolation room, no immediate family member at bedside during rounds this morning. Pt had dialysis 04/16/19, s/p sx for wounds on 04/18 no signs of distress note earlier, currently on CCHO 60 gms/meal, Renal Std diet diet with Glucerna Shakes 1 carton TID and Prostat 1 pkt BID, has adequate PO of > 75% x 2 days per RN doc Est. Needs IBW [id number] kcal (30-35 kcal/kgBW), 90-105 gms pro (1.2-1.4 gms/kgBW). Will continue to monitor pertinent labs and reassess nutrient need prn Labs: BUN 39 H, CREAT 6.87 H, GLU 156 H, CA 6.7 L Skin: Alan scale 19, mod risk, s/p debridement wounds per rn clinical documentation. Pls refer to cashier host/hostess's notes yesterday for further details. GI: Pt had 2x BM 04/12/19 per rn clinical documentation. PES: Altered nutrition related lab values r/t acute/chronic medical condition aeb elev RFT severe hypoalb, hypocalcemia, elev A1C, hyperglycemia Decreased nutrient needs r/t adiposity aeb pt`s high BMI of 39.9 kgm2 Will continue to monitor PO intake, skin status, pertinent labs and weight trend. F/u in 3 to 5 days. Rec.: 1.) Consider enter order for daily Nephrovite and Asc acid 500 mgs BID, already e-signed by ). 2.) Continue close supervision with meals. 3.) Refer to CDE/RD for further nutrition education and weight monitoring upon discharged. 4.) Continue current plan of care.
--- NOTE | 2019-04-19 16:00 | NUR ---
Dialysis Nurse, Brandy at bedside.
[2019-04-19] MEDS ORDERED: SODIUM CHL 0.9% 1000 ML BAG XX ONE (16:15)
--- NOTE | 2019-04-19 16:30 | NUR ---
Family at bedside concerned Family states "my called me and said he has been hearing voices, my voice." Patient is disoriented with the time, and having hallucinations, patient states "there is a fly in the room," there are no flies in the room at this time. Will notify the attending provider.
--- NOTE | 2019-04-19 17:30 | NUR ---
Paged hospitalist regarding hallucinations
--- NOTE | 2019-04-19 17:39 | NUR ---
Hospitalist returned page Mike Longoria, Hospitalist, stated "re-orient the patient, hold narcotics at this point in time, may be developing hospital related delirium". The patient has been here since 04/04/19. Will continue to monitor Q1h and PRN.
--- NOTE | 2019-04-19 17:44 | NUR ---
I spoke with [facility] earlier to let them know that patient is supposed to be discharged tomorrow-they will see patient the day after discharge-will follow up with them tomorrow.
--- NOTE | 2019-04-19 18:16 | NUR ---
Dialysis is finished BP 141/76 HR 88 One unit of Packed RBC transfused during dialysis Reported 2.2 L removed per lap regulator.
--- NOTE | 2019-04-19 18:30 | NUR ---
Family Brought food from outside Patient is eating fast food from family, notified patient that this is not consistent with the current diet we have for the patient. Education was given.
[2019-04-19] MEDS: TAMSULOSIN HYDROCHLORIDE 0.4 MG CAP PO SCH (18:35)
--- NOTE | 2019-04-19 20:00 | NUR ---
PM ASSESSMENT PT AWAKE, ALERT, A/OX4, AFEBRILE. PT C/O PAIN ON RT STUMP 08/04, WILL ADMIN PAIN MED. NO SOB OR DISTRESS, PT REFUSED TO USE NC AT THIS TIME, STATES HE USES IT WHILE HE SLEEPS, O2SAT 95% RA. MARKED DRIED BLOOD ON RT LOWER EXTREMITY DRESSING W/ MARKER. POC DISCUSSED, PT STATED UNDERSTANDING. SAFETY PRECAUTIONS IN PLACE. WILL CONTINUE TO MONITOR.
[2019-04-19] MEDS: ONDANSETRON HCL 4 MG/2 ML VIAL IV PRN (20:39)
[2019-04-19] MEDS ORDERED: EPOETIN ALFA 10,000 UNIT/1 ML VIAL SC ONE (21:00)
[2019-04-19] MEDS: ATORVASTATIN 20 MG TAB PO SCH (22:01)
--- NOTE | 2019-04-20 00:20 | NUR ---
DR. HERRERA HERE TO SEE PT.
--- NOTE | 2019-04-20 00:38 | NUR ---
PT CALLED, STATES PT WAS CALLING HER LOOKING FOR HIS BELONGINGS. ASKED PT IF HE NEEDED HELP WITH ANYTHING OR NONSKID SOCKS, PT REFUSED SOCKS, PT STATED HE FOUND HIS BELONGINGS. EDUCATED PT TO USE CALL LIGHT FOR ANY HELP OR QUESTIONS, PT STATED UNDERSTANDING AND STATED HE WAS FINE AND HAD NO PAIN AT THIS TIME. SAFETY PRECAUTIONS IN PLACE. WILL CONTINUE TO MONITOR.
--- NOTE | 2019-04-20 01:18 | NUR ---
/ RT STUMP PT CALLED, STATED THAT PT SOUNDED AGITATED OVER THE PHONE. WENT TO PT ROOM ASKED IF THERE WAS ANYTHING I CAN HELP HIM WITH, PT STATED HE WAS FINE AND DID NOT NEED ANYTHING. RT STUMP BLEEDING AFTER PT STATED HE WALKED ON IT W/ WALKER AROUND THE ROOM, EDUCATED PT TO KEEP PRESSURE OFF RT STUMP, PT STATED UNDERSTANDING, MARKED DRIED BLOOD ON DRESSING W/ MARKER. FIXED PT BED, REMOVED EXCESS LINEN AND STRAIGHTENED SHEETS. SAFETY PRECAUTIONS IN PLACE. WILL CONTINUE TO MONITOR.
--- NOTE | 2019-04-20 01:35 | NUR ---
CHAIR TO BED ASSISTED PT FROM CHAIR TO BED, IN ORDER TO KEEP PRESSURE OFF RT STUMP, 3 PEOPLE NEEDED FOR CHAIR TO BED TRANSFER, PT TOLERATED WELL. PT NOW IN BED TALKING TO ON THE PHONE. CALL LIGHT W/IN REACH, EDUCATED PT TO USE CALL LIGHT. SAFETY PRECAUTIONS IN PLACE. WILL CONTINUE TO MONITOR.
[2019-04-20] MEDS: HYDROmorphone HCL 2 MG/ML VL IV PRN (02:51)
[2019-04-20] MEDS: ONDANSETRON HCL 4 MG/2 ML VIAL IV PRN (02:51)
--- NOTE | 2019-04-20 02:57 | NUR ---
PT C/O PAIN ON RT STUMP 08/04, PT REQUESTED DILAUDID, WILL ADMIN PAIN MED, SAFETY PRECAUTIONS IN PLACE. WILL CONTINUE TO MONITOR.
--- NOTE | 2019-04-20 05:13 | NUR ---
PT STATING HE IS FRUSTRATED AND WANTS TO GO HOME, S/W , PT MORE CALM AND STATES HE WILL WAIT FOR WHEN SHE COMES IN THE MORNING AND SPEAK WITH ABOUT LEAVING IN THE MORNING. PT SITING AT SIDE OF BED, EDUCATED TO USE CALL LIGHT FOR ASSISTANCE TO MOVE BACK INTO BED, PT STATED UNDERSTANDING. PT AGREED TO NONSKID SOCKS, APPLIED TO LT FOOT. BED ON LOWEST POSITION. CALL LIGHT W/IN REACH, PT INSTRUCTED TO USE, STATED UNDERSTANDING. SAFETY PRECAUTIONS IN PLACE. WILL CONTINUE TO MONITOR.
[2019-04-20 05:34] VITALS: BP 149/86
[2019-04-20] MEDS: ACCU-CHEK COMFORT CURVE STRIP VI SCH ×4 (06:43→22:00)
[2019-04-20] MEDS: InsuLIN REG 1unit/0.01ml Soln (100units/ml) SC SCH ×4 (06:43→22:00)
--- NOTE | 2019-04-20 06:43 | NUR ---
BED LINENS CHANGED PER PT REQUEST. PT ASSISTED BACK INTO BED, PT TOLERATED WELL. SAFETY PRECAUTIONS IN PLACE. WILL CONTINUE TO MONITOR.
--- NOTE | 2019-04-20 07:00 | NUR ---
DR. AWAD PAGED TO NOTIFY PT RT STUMP IS BLEEDING. AWAITING CALL BACK.
--- NOTE | 2019-04-20 07:11 | NUR ---
DR. AWAD CALLED BACK, STATED IT DOES NOT APPEAR TO BE A SERIOUS BLEED AT THIS TIME AND WILL NOTIFY DR. ORSADO. INFORMED ONCOMING NURSE AJITH WILLIAMSON.
--- NOTE | 2019-04-20 07:40 | NUR ---
Opening Note Received report from night stocker RN. Patient is awake, sitting up at side of bed. Patient is alert and oriented x3. Patient is asking where his mom went, patient is agitated. Per report patient has been having periods of confusion. Patient has a dressing to right foot, with moderate amount of drainage. Patient requesting to have dressing changed because "it feels soaked." Will apply new dressing. Patient complains of headache, will medicare per orders. Patient is on room air, respirations even and unlabored. Reviewed plan of care with patient, patient verbalized understanding. Instructed patient the right leg is non-weight barring. Bed in low and locked position, call light within reach. Will continue to monitor Q1 hour and PRN.
[2019-04-20] MEDS: CALCIUM ACETATE 667 MG CAP PO SCH ×3 (08:00→17:48)
[2019-04-20] MEDS: Glucerna Carbsteady SHAKE Vanilla 8oz PO SCH ×3 (08:00→17:48)
[2019-04-20] MEDS: Pro-Stat SF 30ml Vanilla PO SCH ×2 (08:00→17:48)
[2019-04-20] MEDS: SEVELAMER 800 MG TAB PO SCH ×3 (08:00→17:48)
--- NOTE | 2019-04-20 08:10 | NUR ---
Patient Ambulating 0810 Patient ambulating. Patient see ambulating down hallway in [facility]. This RN notified. Patient is seen trying to enter another patients room states "my mom is in there, I need to talk to her." Attempted to reorient patient. Patient states "I am not a drug addict, i need to talk to my mom." Patient is angry and agitated. Patient has been instructed and educated by this RN not to ambulate. The patients right foot is non-weight barring. 0812 Security paged, and Charge Nurse Ruthie. Patient placed in a wheelchair. Patient states "don't touch me, I'm not going anywhere." Accompanied by security and Charge nurses Ruthie and Pushpa, patient returned to room. 0815 Patient yelling that someone stole his cell phone. Patients cell phone was found to be in his gown pocket. Patient states he need sto call him mom. Unable to obtain moms phone number at this time. Patient returned to bed. Attempted to call patients , no answer. 0817 Dressing to right foot is saturated with bright sanguinous drainage. Dressing removed, foot is actively bleeding at this time. Area cleaned with normal saline, pressure and sterile gauze applied. Wound packed, Erick bandage wrapped around foot and ankle. Patients foot elevated on pillow. Patient instructed not to dangle foot or to ambulate. Patient verbalized understanding. Patient states he is upset because he wants to go home. Will continue to monitor Q1 hour and PRN.
[2019-04-20 09:00] VITALS: BP 144/69
--- NOTE | 2019-04-20 09:10 | NUR ---
Patient refused breakfast Patient refused breakfast. States he does not want to eat, states he does not feel like it. Will continue to monitor Q1 hour and PRN.
[2019-04-20] MEDS ORDERED: MORPHINE SULFATE 4 MG/ML SYR/VIAL IV PRN (10:00)
[2019-04-20] MEDS: ERTAPENEM SOD INJ 0.5 GM in SODIUM CHL 0.9% 50 ML IV SCH ×2 (10:00→16:02)
--- NOTE | 2019-04-20 10:15 | NUR ---
Family contact Patients mothers phone number Holly
--- NOTE | 2019-04-20 10:17 | NUR ---
Spoke to patients Spoke to patients . She states the patient called her at 0500, very angry and confused. states this behavior is not normal for her . Updated on plan of care, verbalized understanding. Requesting to be called with updates.
[2019-04-20] MEDS: SERTRALINE HCL 50 MG TAB PO SCH (10:58)
[2019-04-20] MEDS: CARVEDILOL 3.125 MG TAB PO SCH ×2 (10:59→22:00)
[2019-04-20] MEDS: amLODIPine BESYLATE 5 MG TAB PO SCH (11:00)
[2019-04-20] MEDS: FUROSEMIDE 40 MG TAB PO SCH (11:00)
[2019-04-20] MEDS: FAMOTIDINE 20 MG TAB PO SCH (11:00)
[2019-04-20] MEDS: SODIUM CHLOR 0.9% PF (SALINE LOCK) 10ML VIAL/SYR IV SCH ×2 (11:07→22:00)
--- NOTE | 2019-04-20 11:40 | NUR ---
Dr. Madison at bedside Dr. Madison at bedside reviewing plan of care with patient. Instructed this RN to notify wound care nurse Margarita. Dr would like her to remove the bandage and check for current bleeding in the right foot. Will implement new orders.
--- NOTE | 2019-04-20 11:44 | NUR ---
Called wound care nurse Margarita Avila RN states she will meet this RN in the patients room to remove dressing and assess the patients right foot.
--- NOTE | 2019-04-20 12:20 | NUR ---
WOUND CARE NOTE: IN TO SEE PATIENT ALONG WITH DR. ROSADO AT THIS TIME. PATIENT AMBULATED ON HIS AMPUTATED RIGHT FOOT WOUND THIS AM, FOOT DRAINING SANGUINOUS DRAINAGE. REMOVED DRESSING. WOUND CONTINUES TO OOZE VERY SMALL AMOUNT OF BLOOD. PUT TEMPORARY DRESSING ON WOUND. WILL REASSESS WOUND AGAIN SHORTLY TO SEE IF STILL BLEEDING. PER DR. ROSADO, IF CONTINUES TO BLEED, NOTIFY HIM, IF NOT, OK TO PLACE WOUND VAC DRESSING.
--- NOTE | 2019-04-20 12:30 | NUR ---
WOUND CARE NOTE: BACK TO SEE PATIENT'S RIGHT FOOT WOUND. THERE IS APPROXIMATELY 20 CC OF BLOOD POOLING IN WOUND CAVITY. WILL NOTIFY DR. ROSADO. REPLACED TEMPORARY DRESSING. WILL CHECK AGAIN LATER.
--- NOTE | 2019-04-20 12:40 | NUR ---
Patient refused lunch. Will continue to monitor Q1 hour and PRN.
--- NOTE | 2019-04-20 12:48 | NUR ---
Patient refusing lab draws Patient refusing lab draws, was notified by cath lab technologist. Patient educated on importance having lab draws, patient continues to refuse. Will continue to monitor Q1 hour and PRN.
[2019-04-20 13:00] VITALS: BP 157/64
--- NOTE | 2019-04-20 13:45 | NUR ---
WOUND CARE NOTE: BACK TO SEE PATIENT'S WOUND. THERE IS APPROXIMATELY 40 CC SANGUINOUS DRAINAGE WITHIN WOUND CAVITY. WILL NOT PLACE WOUND VAC TODAY. APPLIED DRESSING CONSISTING OF XEROFORM IN WOUND CAVITY, ABD PADS, STERILE 4X4'S FOR PADDING. WRAPPED FOOT WITH KERLIX, SECURED WITH TAPE. ELEVATED FOOT ON PILLOWS. SPOKE WITH DR. ROSADO, ADVISED HIM THAT WE WILL REASSESS HIS FOOT TOMORROW AM FOR ADDITIONAL BLEEDING. POSSIBLE WOUND VAC PLACEMENT AT THAT TIME. DR. ROSADO IN AGREEMENT. WOUND CARE TEAM WILL CONTINUE TO MONITOR. OF NOTE: WOUND PHOTO TAKEN AT THIS TIME FOR REFERENCE.
--- NOTE | 2019-04-20 13:50 | NUR ---
Family at bedside
--- NOTE | 2019-04-20 14:28 | NUR ---
I called [facility] [phone] and spoke with Viky to update her on the plan of care for this patient, I let her know that patient will not be discharged home today. I also called [facility] [phone] and spoke with Salome to update her as well.
--- NOTE | 2019-04-20 15:33 | NUR ---
Patient states bowel movement Patient is agitated stating he had an accident in bed and he needs to be cleaned. This RN and MANASA Sterling went to clean patient, patient was dry. Told patient he did not have a bowel movement, patient angrily stated "yes I did, and its all over my hands too." Patients hand are clean and dry. Full linen change completed. Family at bedside. Spoke to , told her patient did not have a bowel movement.
--- NOTE | 2019-04-20 16:08 | NUR ---
Visual hallucinations Patient is yelling towards the corner of his room, stating he is talking to his daughters kids. There is no visitors in the patients room at this time. Patient states "she was just here, where did she go?" Attempted to reorient patient and told him there is no one in his room at this time. Will continue to monitor Q1 hour and PRN. Attempted to reorient patient. Will continue to monitor Q1 hour and PRN.
[2019-04-20 16:48] VITALS: BP 103/39
[2019-04-20] MEDS ORDERED: VANCOMYCIN 1GM/250ML 250 ML IV ONE (17:00)
--- NOTE | 2019-04-20 17:42 | NUR ---
Vancomycin Called Pharmacy regarding patients 1700 vancomycin. Patient refused lab draws today, was unable to obtain vanco lab value. Was instructed to hold this dose. Will continue to monitor Q1 hour and PRN.
[2019-04-20] MEDS: TAMSULOSIN HYDROCHLORIDE 0.4 MG CAP PO SCH (17:48)
--- NOTE | 2019-04-20 18:39 | NUR ---
Dressing changed Patient was sitting up at bedside stating he needs to use the restroom. Instructed patient to lay back in bed. Provided patient with urinal and bedpan. Right foot saturated with sanguinous drainage. Outer dressing removed. Sterile gauze, Kerlix and estella bandage applied to right foot. Foot elevated on pillows. Patient instructed to keep foot elevated, and not to ambulate. Instructed patient to call for assistance. Will continue to monitor Q1 hour and PRN.
--- NOTE | 2019-04-20 19:05 | NUR ---
Closing Note Report given to assistant shift supervisor RN. Patient resting in bed. No signs or symptoms of distress noted at this time.
--- NOTE | 2019-04-20 19:50 | NUR ---
Discussed with patient need for labs - patient understood and allowed medical lab technologist to draw blood. Re-placed orders for labs. Patient is alert and oriented X3.
[2019-04-20 19:51] LABS: Basophils # (auto) 0.1 uL; Eosinophils # (auto) 0.2 uL; Hemoglobin 7.4 g/dL (13.5-17.5); Lymphocytes # (auto) 0.7 uL; Monocytes # (auto) 0.4 uL; Neutrophils # (auto) 7.6 uL; Neutrophils % (auto) 84.6 % (37.0-80.0)
[2019-04-20 19:52] LABS: Eosinophils % (auto) 2.2 % (0.0-7.0); Hematocrit 22.1 % (41.0-53.0); Lymphocytes % (auto) 7.9 % (10.0-50.0); Mean Corpuscular Hemoglobin 30.2 pg (28.0-32.0); Mean Corpuscular Hgb Conc. 33.5 g/dL (32.0-36.0); Mean Corpuscular Volume 90.4 fL (80.0-100.0); Monocytes % (auto) 4.3 % (0.0-12.0); Nucleated Red Blood Cells % 0.1 %; Platelet Count (auto) 109 10^3/uL (140-450); Red Blood Cells 2.44 10^6/uL (4.5-5.90)
[2019-04-20 20:06] LABS: Albumin 1.6 g/dL (3.4-5.0); BUN/Creatinine Ratio 5.3; Calcium 7.1 mg/dL (8.5-10.1); Potassium 4.5 mmol/L (3.5-5.1)
[2019-04-20 20:08] LABS: Bilirubin, Total 0.6 mg/dL (0.2-1.0)
--- NOTE | 2019-04-20 20:20 | NUR ---
Patient had 2 BM - liquid, brown, moderate amount. Cleaned patient and performed complete linen change. Patient tolerated well. Patient advised - no weight bearing on right foot.
[2019-04-20 20:52] LABS: INR 1.18 (0.9-1.15); Partial Thromboplastin Time 31.9 sec (23.64-32.05)
[2019-04-20 21:34] VITALS: BP 120/50
[2019-04-20] MEDS: ATORVASTATIN 20 MG TAB PO SCH (22:00)
[2019-04-20] MEDS: HYDROcodone-ACET 5/325MG TAB PO PRN (22:02)
--- NOTE | 2019-04-21 02:10 | NUR ---
Patient had a couple bouts of confusion upon awakening, but quickly re-oriented after talking to patient.
--- NOTE | 2019-04-21 04:06 | NUR ---
Patient is alert now. Performed dressing change on right foot due to saturation with serosanguineous drainage. There is a large blister on the anterior upper portion above the wound and a couple small ones around the wound. Cleansed wound with spray, patted with sterile gauze. Placed ABD pad with additional gauze as reinforcement, wrapped with kerlix then AMAN. Patient tolerated well. Will continue to monitor.
[2019-04-21 05:13] VITALS: BP 113/72
[2019-04-21 05:28] LABS: Basophils # (auto) 0.1 uL; Eosinophils # (auto) 0.2 uL; Monocytes # (auto) 0.5 uL; White Blood Cell 6.8 10^3/uL (4.4-10.8)
[2019-04-21 05:37] LABS: Basophils % (auto) 0.9 % (0.0-2.0); Eosinophils % (auto) 3.5 % (0.0-7.0); Hematocrit 20.8 % (41.0-53.0); Hemoglobin 7.1 g/dL (13.5-17.5); Lymphocytes # (auto) 0.9 uL; Lymphocytes % (auto) 12.8 % (10.0-50.0); Mean Corpuscular Hemoglobin 30.6 pg (28.0-32.0); Mean Corpuscular Volume 89.8 fL (80.0-100.0); Neutrophils # (auto) 5.2 uL; Neutrophils % (auto) 75.8 % (37.0-80.0); Nucleated Red Blood Cells % 0.1 %; Platelet Count (auto) 106 10^3/uL (140-450); Red Blood Cells 2.32 10^6/uL (4.5-5.90); Red Cell Distribution Width 16.1 % (11.8-14.3)
[2019-04-21 05:43] LABS: BUN/Creatinine Ratio 5.1; Calcium 6.8 mg/dL (8.5-10.1); Potassium 4.6 mmol/L (3.5-5.1)
[2019-04-21] MEDS: ACCU-CHEK COMFORT CURVE STRIP VI SCH ×4 (06:34→21:14)
[2019-04-21] MEDS: InsuLIN REG 1unit/0.01ml Soln (100units/ml) SC SCH ×4 (06:34→21:14)
--- NOTE | 2019-04-21 07:30 | NUR ---
Opening Shift Note Assuming care of patient at this time. Patient is awake and alert x4. Patient denies pain. Bed is locked and lowered with side rails up x2. Instructed patient on the plan of care for today and to call for assistance as needed. Call light within reach. Will continue to round hourly and as needed. Patient's foot dressing is intact and appears to have some serosanguineous drainage that is beginning to seeping through.
[2019-04-21] MEDS: SEVELAMER 800 MG TAB PO SCH ×3 (08:00→18:46)
[2019-04-21] MEDS: Pro-Stat SF 30ml Vanilla PO SCH ×2 (08:00→18:00)
[2019-04-21] MEDS: CALCIUM ACETATE 667 MG CAP PO SCH ×3 (08:00→18:45)
[2019-04-21 09:00] VITALS: BP 126/63
--- NOTE | 2019-04-21 09:30 | NUR ---
Bed Change As MANASA Lozano and this RN were changing bed, patient began having a bowel movement. Continued to fix bed and let him continue with a bed herrera.
[2019-04-21] MEDS: amLODIPine BESYLATE 5 MG TAB PO SCH (10:00)
[2019-04-21] MEDS: FUROSEMIDE 40 MG TAB PO SCH (10:00)
[2019-04-21] MEDS: CARVEDILOL 3.125 MG TAB PO SCH ×2 (10:00→21:14)
[2019-04-21] MEDS: FAMOTIDINE 20 MG TAB PO SCH (10:00)
[2019-04-21] MEDS: SERTRALINE HCL 50 MG TAB PO SCH (10:00)
--- NOTE | 2019-04-21 10:00 | NUR ---
Re: Bed herrera Patient continues to need bed herrera. Patient is continuing to have loose, soft bowel movements. Patient has expressed that he wants something to stop the bowel movements. Will notify .
[2019-04-21] MEDS: Glucerna Carbsteady SHAKE Vanilla 8oz PO SCH ×3 (10:14→18:45)
[2019-04-21] MEDS ORDERED: EPOETIN ALFA 10,000 UNIT/1 ML VIAL IV ONE (10:30)
--- NOTE | 2019-04-21 10:30 | NUR ---
Dialysis at bedside Patient is receiving dialysis at this time.
[2019-04-21] MEDS ORDERED: LOPERAMIDE HCL 2 MG CAP PO ONE (10:45)
--- NOTE | 2019-04-21 11:08 | NUR ---
Call from Pharmacy Pharmacist called at this time to verify if patient has a high risk for bleeding. Explained that patient has a wound that is continuing to bleed. Pharmacist verbalized understanding and states that he will verify epogen order.
--- NOTE | 2019-04-21 12:00 | NUR ---
WOUND CARE NOTE: IN TO ASSESS RIGHT FOOT TO SEE IF WOUND VAC CAN BE APPLIED TO WOUND. THERE IS STRIKE-THROUGH SANGUINOUS DRAINAGE NOTED ON DRESSING. DRESSING REMOVED. WOUND CONTINUES TO OOZE SANGUINOUS DRAINAGE FROM THE CENTER PORTION OF THE WOUND BED. BLISTERING APPEARS TO HAVE WORSENED, WITH MORE DUSKY APPEARANCE TO THE SKIN. WOUND VAC IS CONTRAINDICATED AT THIS TIME. APPLIED NEW DRESSING PER MD ORDER. ELEVATED FOOT UP ONTO PILLOWS. NOTIFIED DR. ROSADO OF PATIENT'S WOUND STATUS. WOUND CARE TEAM WILL CONTINUE TO MONITOR.
[2019-04-21] MEDS: SODIUM CHLOR 0.9% PF (SALINE LOCK) 10ML VIAL/SYR IV SCH ×2 (12:44→21:14)
[2019-04-21 13:00] VITALS: BP 129/65
[2019-04-21] MEDS: ERTAPENEM SOD INJ 0.5 GM in SODIUM CHL 0.9% 50 ML IV SCH (13:49)
[2019-04-21] MEDS ORDERED: VANCOMYCIN 1GM/250ML 250 ML IV ONE (15:00)
--- NOTE | 2019-04-21 15:00 | NUR ---
Spoke with Dr. Dr. Duran aware of inability to apply wound vac.
[2019-04-21] MEDS ORDERED: SODIUM ZIRCONIUM CYCL 10 GM PAK PO ONE (16:45)
[2019-04-21] MEDS ORDERED: ALBUTEROL SULF 2 MG/5ML ORAL SYRUP PO ONE (16:45)
[2019-04-21 17:27] VITALS: BP 111/59
--- NOTE | 2019-04-21 18:30 | NUR ---
Patient sitting on edge of bed Patient is sitting on edge of bed. Patient instructed to not put any weight on foot. Patient verbalizes understanding. Dressing is dry and intact at this time. No drainage noted.
--- NOTE | 2019-04-21 18:35 | NUR ---
Drainage Patient's wound dressing is now starting to show some sanguineous drainage. Asked patient if he put weight on his foot. Patient states, "No. I just shifted my body over." Will continue to monitor drainage and change as needed.
[2019-04-21] MEDS: TAMSULOSIN HYDROCHLORIDE 0.4 MG CAP PO SCH (18:45)
--- NOTE | 2019-04-21 19:30 | NUR ---
Opening Shift Note Assumed care of patient, awake and alert x4. Patient denies pain at this time. No S/S of distress/SOB noted. Instructed on plan of care and to call for assistance as needed. Bed is locked in lowest position, side rails x 2 are up, call light is within reach, and bed alarm is on.
--- NOTE | 2019-04-21 19:46 | NUR ---
Closing Shift Note Patient is resting in bed. Dressing is becoming more saturated with sanguineous. Patient denies pain. Report given. Will endorse care to the manager cath lab RN.
--- NOTE | 2019-04-21 20:56 | NUR ---
DRESSING REINFORCED TO RIGHT STUMP Dressing to right stump saturated with sanguinous drainage. Dressing reinforced.
[2019-04-21] MEDS: ATORVASTATIN 20 MG TAB PO SCH (21:14)
[2019-04-21 22:00] VITALS: BP 138/81
[2019-04-22] VITALS (15 sets, daily range): BP systolic 118–150; BP diastolic 58–81
--- NOTE | 2019-04-22 01:05 | NUR ---
DRESSING REINFORCED TO RIGHT STUMP Dressing to right stump saturated with sanguinous drainage. Dressing reinforced.
[2019-04-22 05:48] LABS: Basophils # (auto) 0.1 uL; Eosinophils # (auto) 0.3 uL; Mean Corpuscular Hemoglobin 30.3 pg (28.0-32.0); Mean Corpuscular Hgb Conc. 33.7 g/dL (32.0-36.0); Monocytes # (auto) 0.6 uL
[2019-04-22 05:49] LABS: Basophils % (auto) 1.3 % (0.0-2.0); Eosinophils % (auto) 4.5 % (0.0-7.0); Lymphocytes % (auto) 17.4 % (10.0-50.0); Neutrophils # (auto) 3.9 uL; Neutrophils % (auto) 66.8 % (37.0-80.0); Platelet Count (auto) 98 10^3/uL (140-450); Red Blood Cells 2.22 10^6/uL (4.5-5.90); Red Cell Distribution Width 15.6 % (11.8-14.3); White Blood Cell 5.9 10^3/uL (4.4-10.8)
--- NOTE | 2019-04-22 05:51 | NUR ---
DRESSING TO RIGHT STUMP CHANGED Patient was noted to have saturated sanguineous dressing to right stump. Wound was redressed with 4 rolls of Kerlix. Patient tolerated dressing change well. Patient denies pain at this time. Patient is laying in bed with even and unlabored breathing. No S/S of distress noted.
[2019-04-22 05:55] LABS: Hemoglobin 6.7 g/dL (13.5-17.5)
--- NOTE | 2019-04-22 05:55 | NUR ---
HOSPITALIST PAGED RE: CRITICAL HEMOGLOBIN LEVEL Hospitalist paged regarding critical hemoglobin level of 6.7. Awaiting call back.
[2019-04-22] MEDS: ACCU-CHEK COMFORT CURVE STRIP VI SCH ×3 (05:56→17:27)
[2019-04-22] MEDS: InsuLIN REG 1unit/0.01ml Soln (100units/ml) SC SCH ×4 (05:56→22:00)
--- NOTE | 2019-04-22 06:40 | NUR ---
RECEIVED CALL FROM LABORATORY RE: TYPE AND SCREEN Received call from laboratory informing this RN that patient needs a need type and screen due to it being . Will place order per protocol.
--- NOTE | 2019-04-22 07:20 | NUR ---
OPENING NOTE ASSUMED CARE OF PATIENT. ALERT AND ORIENTED. NO SIGNS OF SOB/DISTRESS NOTED. PATIENT DENIES ANY PAIN. BED SET TO LOWEST POSITION/LOCKED, BED ALARM ON, BEDSIDE RAILS UP X2, CALL LIGHT WITHIN REACH. INSTRUCTED PATIENT TO CALL FOR ASSISTANCE. DISCUSSED POC. WILL CONTINUE TO MONITOR Q 1HR AND PRN.
--- NOTE | 2019-04-22 07:36 | NUR ---
CLOSING SHIFT NOTE Patient is laying in bed with even and unlabored breathing. No S/S of distress/SOB noted. Dressing to right stump is dry and intact. Bed is locked in lowest position, side rails x 2 are up, call light is within reach, and bed alarm is on. Endorsed patient care to Benita CANSECO.
[2019-04-22] MEDS: Glucerna Carbsteady SHAKE Vanilla 8oz PO SCH ×3 (08:00→18:00)
[2019-04-22] MEDS: Pro-Stat SF 30ml Vanilla PO SCH ×2 (08:00→18:00)
[2019-04-22] MEDS: CALCIUM ACETATE 667 MG CAP PO SCH ×3 (09:35→17:13)
[2019-04-22] MEDS: SEVELAMER 800 MG TAB PO SCH ×3 (09:35→17:13)
[2019-04-22] MEDS: FAMOTIDINE 20 MG TAB PO SCH (09:36)
[2019-04-22] MEDS: SODIUM CHLOR 0.9% PF (SALINE LOCK) 10ML VIAL/SYR IV SCH (09:36)
[2019-04-22] MEDS: ERTAPENEM SOD INJ 0.5 GM in SODIUM CHL 0.9% 50 ML IV SCH (09:36)
[2019-04-22] MEDS: SERTRALINE HCL 50 MG TAB PO SCH (09:36)
[2019-04-22] MEDS: CARVEDILOL 3.125 MG TAB PO SCH (09:36)
[2019-04-22] MEDS: FUROSEMIDE 40 MG TAB PO SCH (09:37)
[2019-04-22] MEDS: amLODIPine BESYLATE 5 MG TAB PO SCH (09:38)
[2019-04-22] MEDS ORDERED: HYDROcodone-ACET 5/325MG TAB PO PRN (11:15)
[2019-04-22] MEDS ORDERED: ZOLPIDEM TARTRATE 5 MG TAB PO PRN (11:15)
[2019-04-22] MEDS ORDERED: MORPHINE SULF INJ 2 MG/ML SYRINGE 1ML IV PRN (11:15)
--- NOTE | 2019-04-22 12:15 | NUR ---
I spoke with patient's Ann Marie [phone] regarding the plan of care for her -she voiced concerns about his mental status and further care-she stated that he has been at 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 I called Dr. Duran to discuss the plan of care for this patient-I also provided him with patient's 's name and phone number.
[2019-04-22] MEDS ORDERED: HALOPERIDOL LACTATE 5 MG/ML INJ VIAL IM ONE (12:45)
[2019-04-22] MEDS ORDERED: HALOPERIDOL LACTATE 5 MG/ML INJ VIAL IM PRN (12:45)
--- NOTE | 2019-04-22 12:58 | NUR ---
Nutrition Follow-up Notes Wt.: 124.6 kg as of yesterday. Pt's in isolation room, had dialysis yesterday, denies any discomfort during rounds this morning. Pt's currently on CCHO 60 gms/meal, Renal Std diet diet with Glucerna Shakes 1 carton TID and Prostat 1 pkt BID, has inadequate PO intake aeb <50% ave. consumed meals (x6) in last 2.5 days. Est. Needs IBW [id number] kcal (30-35 kcal/kgBW), 90-105 gms pro (1.2-1.4 gms/kgBW). Will continue to monitor pertinent labs and reassess nutrient need prn Labs: POC Gluc 120 H; 04/21/19 BUN 35 H, Cr 6.82 H, Ca 6.8 L; Tpro 6.0 L, Alb 1.8 L Skin: Alan scale 15, mod risk, s/p debridement wounds per outdoor landscape architect. Pls refer to rn bariatric's notes yesterday for further details. GI: Pt had 10x BM yesterday per outdoor landscape architect. PES: Altered nutrition related lab values r/t acute/chronic medical condition aeb elev RFT severe hypoalb, hypocalcemia, elev A1C, hyperglycemia Decreased nutrient needs r/t adiposity aeb pt`s high BMI of 39.9 kgm2 Will continue to monitor PO intake, skin status, pertinent labs and weight trend. F/u in 3 to 5 days. Rec.: 1.) Consider enter order for daily Nephrovite and Asc acid 500 mgs BID, already e-signed by . 2.) Continue close supervision and feeding assistance prn with meals. 3.) Consider appetite stimulant prn to improve pt's PO intake. 4.) Refer to CDE/RD for further nutrition education and weight monitoring upon discharged. 5.) Continue current plan of care
--- NOTE | 2019-04-22 14:00 | NUR ---
WOUND CARE NOTE: Wound care in to see patient per Dr. Madison's order to apply wound vac to patient's R forefoot stump wounds. Patient is resting in bed in in Rm. 208A. He's awake,alert and oriented. He's able to move, turn and reposition self. His current Alan score is 15. Dr. Madison at bedside and examine patient's wound,gave order to "go ahead apply wound vacc now and monitor for bleeding". Patient's education given regarding NPWT. Patient states he's aware of wound vac as he had it before. Patient's Rt forefoot stump s/p debridement wound measuring [id number]. Wound is red with palpable bone, periwound is macerated and he developed wounds to R dorsal aspect of foot and Rt heel. Moderate amount of serosanguineous drainage noted on old dressing. Cleansed patient's wound with wound cleanser, patted dry with sterile gauze, applied skin protectant to daysi wound. Photograph of wounds are taken for reference. Applied Thera honey gauze to R dorsal and Rt heel wounds, covered with Optifoam dressing. Applied transparent dressing along daysi wound up to Rt anterior frey to protect skin in bridging. Pack wound cavity with one piece white foam to protect the bone, applied two pieces black granu foam dressing and run foam dressing towards anterior frey. Secured foam dressing with transparent drape. Applied trac pad on hole. Connected tubings. Run wound vac at 125 mmHg continuos per MD order. Good suction noted, with good seal, no leak detected. Patient tolerated well. Minimal serosanguineous drainage noted in tubing. Instructed AJITH Joy to monitor for bleeding, monitor drainage, notify wound care and MD and to stop wound vacc and to apply pressure dressing in case of bleeding. AJITH Joy verbalize understanding. RECOMMENDATION: Q3Days/PRN Dressing change to R forefoot stump wounds per MD order, continuation of all other wound care orders prescribed by MD, continue monitoring by wound care while patient is hospitalized. Addendum: 04/22/19 at 2019 by Felicia North RN Amended: Links added.
[2019-04-22] MEDS: PIPERACILLIN-TAZOB 2.25GM 50 ML IV SCH (17:12)
[2019-04-22] MEDS: TAMSULOSIN HYDROCHLORIDE 0.4 MG CAP PO SCH (17:13)
--- NOTE | 2019-04-22 17:28 | NUR ---
PATIENT IS REFUSING HEAD CT.
--- NOTE | 2019-04-22 19:00 | NUR ---
WOUND VAC DRAINAGE 50ML
--- NOTE | 2019-04-22 19:30 | NUR ---
Opening Shift Note Assumed care of patient, awake and alert x4. Patient noted to have wound vac to right stump, at 125mmHg continuous suction. Patient denies pain at this time. No S/S of distress/SOB noted. Instructed on plan of care and to call for assistance as needed. Bed is locked in lowest position, side rails x 2 are up, call light is within reach, and bed alarm is on.
--- NOTE | 2019-04-22 21:40 | NUR ---
BLOOD TRANSFUSION FINISHED Blood transfusion finished at this time. No S/S of distress/SOB noted. Patients lung sounds sound clear upon auscultation.
[2019-04-23] MEDS: SODIUM CHLOR 0.9% PF (SALINE LOCK) 10ML VIAL/SYR IV SCH ×3 (00:01→22:15)
[2019-04-23] MEDS: PIPERACILLIN-TAZOB 2.25GM 50 ML IV SCH ×4 (00:01→22:15)
--- NOTE | 2019-04-23 05:00 | NUR ---
DRESSING TO RIGHT STUMP Foam and tegaderm was applied to blisters on right stump. Serosanguineous drainage noted. Full linen change was done with the assistance of heather Gonsales. Patient tolerated well. No S/S of distress/SOB noted. Bed is locked in lowest position, side rails x 2 are up, call light is within reach, and bed alarm is on.
[2019-04-23 05:05] VITALS: BP 133/60
[2019-04-23 05:07] LABS: Basophils # (auto) 0.1 uL; Eosinophils # (auto) 0.4 uL; Lymphocytes # (auto) 0.9 uL; Monocytes # (auto) 0.8 uL; Red Blood Cells 2.42 10^6/uL (4.5-5.90); White Blood Cell 6.3 10^3/uL (4.4-10.8)
[2019-04-23 05:10] LABS: Basophils % (auto) 0.9 % (0.0-2.0); Eosinophils % (auto) 5.8 % (0.0-7.0); Hematocrit 22.1 % (41.0-53.0); Hemoglobin 7.4 g/dL (13.5-17.5); Lymphocytes % (auto) 14.6 % (10.0-50.0); Mean Corpuscular Hemoglobin 30.6 pg (28.0-32.0); Mean Corpuscular Hgb Conc. 33.5 g/dL (32.0-36.0); Mean Corpuscular Volume 91.3 fL (80.0-100.0); Monocytes % (auto) 12.5 % (0.0-12.0); Neutrophils # (auto) 4.2 uL; Neutrophils % (auto) 66.2 % (37.0-80.0); Platelet Count (auto) 98 10^3/uL (140-450); Red Cell Distribution Width 15.7 % (11.8-14.3)
[2019-04-23 05:17] LABS: Anion Gap 8 (5-15); Blood Urea Nitrogen 26 mg/dL (7-18); Carbon Dioxide 31 mmol/L (21-32); Chloride 102 mmol/L (98-107); Glucose 97 mg/dL (74-106); INR 1.18 (0.9-1.15); Partial Thromboplastin Time 31.9 sec (23.64-32.05); Potassium 3.7 mmol/L (3.5-5.1); Sodium 141 mmol/L (136-145)
[2019-04-23 05:19] LABS: GFR African American 12 mL/min; GFR Non-African American 10 mL/min
[2019-04-23] MEDS: ACCU-CHEK COMFORT CURVE STRIP VI SCH ×5 (05:55→22:16)
[2019-04-23] MEDS: InsuLIN REG 1unit/0.01ml Soln (100units/ml) SC SCH ×4 (05:55→22:00)
--- NOTE | 2019-04-23 07:30 | NUR ---
Opening Shift Note Assumed care of patient, awake and alert. No S/S of distress/SOB or pain. Instructed on POC and to call for assist PRN, will continue to monitor for changes Q1hr and PRN. Bed in low and locked position, rails up x2, no-slip sock on, wound vac functioning well to right lower extremity with no leaks, dialysis nurse at bedside.
[2019-04-23] MEDS: Glucerna Carbsteady SHAKE Vanilla 8oz PO SCH ×3 (08:00→18:00)
[2019-04-23] MEDS: Pro-Stat SF 30ml Vanilla PO SCH ×2 (08:00→18:00)
[2019-04-23] MEDS: CALCIUM ACETATE 667 MG CAP PO SCH ×3 (08:00→19:00)
[2019-04-23] MEDS: SEVELAMER 800 MG TAB PO SCH ×3 (08:00→19:00)
--- NOTE | 2019-04-23 08:00 | NUR ---
DR RAMIREZ AT BEDSIDE
[2019-04-23 09:00] VITALS: BP 146/71
--- NOTE | 2019-04-23 09:35 | NUR ---
DIALYSIS COMPLETED 3L REMOVED PATIENT TOLERATED IT WELL BP 155/81 HR 77 AFTER DIALYSIS, LEFT AV FISTULA DRESSING CLEAN DRY AND INTACT.
--- NOTE | 2019-04-23 10:03 | NUR ---
DR RICE AT BEDSIDE
--- NOTE | 2019-04-23 10:15 | NUR ---
DRESSING REPLACED WOUND VAC PATIENTS CHUX AND BED SATURATED WITH SEROSANGUINEOUS DRAINAGE FROM ANTERIOR RIGHT FOOT OPEN BLISTER, PATIENT HAS ACCIDENTALLY REMOVED WOUND VAC FOAM AND TEGADERM DRESSING DUE TO MOISTURE FROM ANTERIOR AND POSTERIOR BLISTERS AND EXCESSIVE MOVEMENT. WOUND OPEN APPEARING REDDENED WITH MINIMAL SEROUS DRAINAGE AND MACERATED EDGES, IKE TO LATERAL ASPECT OF FOOT INTACT. CALL TO WOUND CARE NURSE, ENTIRE WOUND VAC DRESSING CHANGE COMPLETED AT BEDSIDE. COMPLETE LINEN CHANGE. PATIENT TOLERATED IT WELL.
[2019-04-23] MEDS: SERTRALINE HCL 50 MG TAB PO SCH (10:18)
[2019-04-23] MEDS: FAMOTIDINE 20 MG TAB PO SCH (10:18)
[2019-04-23] MEDS: amLODIPine BESYLATE 5 MG TAB PO SCH (10:19)
[2019-04-23] MEDS: FUROSEMIDE 40 MG TAB PO SCH (10:19)
[2019-04-23] MEDS: CARVEDILOL 3.125 MG TAB PO SCH ×3 (10:20→22:15)
--- NOTE | 2019-04-23 10:58 | NUR ---
WOUND CARE NOTE: Received call from patient's nurse, AJITH Oliveira that patient's Lt foot wound dressing accidentally pulled. AJITH Oliveira described that patient's open blister to R dorsal foot weeping serous drainage causing the wound vac dressing get saturated and came loose with the added pulling from patient's moving causing the leak from seal. Removed patient's Rt foot wound vac dressing. Patient's Rt foot wound remain the same, red with palpable bone, periwound is macerated with multiple serum blisters to periwound. Cleansed patient's wound with wound cleanser, patted dry with sterile gauze, applied skin protectant to daysi wound. Applied Thera honey gauze to Rt heel wound and covered with Optifoam gentle dressing. Applied transparent dressing along daysi wound up to Rt anterior frey to protect skin in bridging. Applied adaptic dressing to wound base to protect the bone. Pack wound cavity with one piece black granu foam dressing from plantar aspect of Rt foot up to weeping wound to R dorsal foot and run foam dressing towards draped anterior frey. Secured foam dressing with transparent drape. Applied trac pad on hole. Connected tubings. Run wound vac at 125 mmHg continuos per MD order. Good suction noted, with good seal, no leak detected. Patient tolerated well. Minimal serosanguineous drainage noted in tubing, 50 mL serosanguineous drainage noted in Vacutainer. Patient tolerated well. AJITH Oliveira at bedside. RECOMMENDATION: Q3Days/PRN Dressing change to R forefoot stump wounds per MD order, continuation of all other wound care orders prescribed by MD, continue monitoring by wound care while patient is hospitalized. Addendum: 04/23/19 at 1750 by Felicia North RN Amended: Links added.
--- NOTE | 2019-04-23 11:55 | NUR ---
DR Hal HERRERA AT BEDSIDE CLEARED FROM A CARDIOLOGY STANDPOINT
[2019-04-23 13:00] VITALS: BP 136/66
[2019-04-23 17:00] VITALS: BP 137/83
[2019-04-23] MEDS ORDERED: VANCOMYCIN 500 MG in D5W 5% 100 ML IV ONE (17:00)
--- NOTE | 2019-04-23 18:10 | NUR ---
PATIENT HALLUCINATING CALLED INTO ROOM DUE TO PATIENT YELLING AND HITTING THE WINDOW. PATIENT HAS BEEN ORIENTED ALL DAY WITH FAMILY AND BEDSIDE AND KNOWS HIS RIGHT FOOT IS NON-WEIGHT BEARING BUT HE IS STATING HE HEARD HIS " CRYING AND LEAVE WITH THE DOCTOR" AND THAT HIS "KIDS ARE OUTSIDE IN THE STREET". PRIOR TO PATIENT EPISODE DRAINAGE WAS AT APPROXIMATELY 100ML. PATIENT WAS REORIENTED WITH HELP OF SECURITY AND ASSISTED BACK TO BED. ATTEMPTED TO CALL TO HELP ASSURE PATIENT THAT SHE HAD ALREADY LEFT THE HOSPITAL AND WAS NOT CRYING WITH NO ANSWER. INFORMED PATIENT TO LEAVE WEIGHT OFF HIS FOOT AND PATIENT VERBALIZES UNDERSTANDING BUT IS STILL VISIBLY UPSET. INFORMED CHARGE NURSE AND MOVED PATIENT TO ROOM 204, CLOSER TO THE NURSES STATING AND PLACED BED ALARM. PATIENT MOVED TO NEW ROOM WITH ALL BELONGINGS AND DRAINAGE IS NOW AT APPROXIMATELY 250ML SANGUINEOUS. WILL CONTINUE TO MONITOR DRAINAGE AMOUNT
[2019-04-23] MEDS: TAMSULOSIN HYDROCHLORIDE 0.4 MG CAP PO SCH (19:00)
--- NOTE | 2019-04-23 19:30 | NUR ---
Opening Shift Note Assumed care of patient, awake and alert x3. Patient easily reoriented to time. Patient noted to have wound vac to right stump, at 125mmHg continuous suction with 250ml of sanguineous drainage noted. Patient denies pain at this time. No S/S of distress/SOB noted. Instructed on plan of care and to call for assistance as needed. Bed is locked in lowest position, side rails x 2 are up, call light is within reach, and bed alarm is on.
--- NOTE | 2019-04-23 21:30 | NUR ---
RECEIVED CALL FROM Received call from patients , after obtaining and verifying password, updated patients on patients' status and plan of care. states that she will be in tomorrow to visit patient at approximately 1:00pm. requested for this RN or day shift RN to call her if any significant events occur over night or during the day. All questions and concerns were addressed.
[2019-04-23 21:56] VITALS: BP 128/70
[2019-04-23] MEDS: ATORVASTATIN 20 MG TAB PO SCH ×2 (22:15)
[2019-04-24 04:50] VITALS: BP 131/72
[2019-04-24 05:09] LABS: Basophils # (auto) 0.1 uL; Eosinophils # (auto) 0.4 uL; Hemoglobin 7.6 g/dL (13.5-17.5); White Blood Cell 6.8 10^3/uL (4.4-10.8)
[2019-04-24 05:11] LABS: Basophils % (auto) 0.9 % (0.0-2.0); Eosinophils % (auto) 6.3 % (0.0-7.0); Hematocrit 22.2 % (41.0-53.0); Lymphocytes # (auto) 0.8 uL; Lymphocytes % (auto) 12.2 % (10.0-50.0); Mean Corpuscular Hemoglobin 30.6 pg (28.0-32.0); Mean Corpuscular Hgb Conc. 34.1 g/dL (32.0-36.0); Mean Corpuscular Volume 89.9 fL (80.0-100.0); Monocytes # (auto) 0.8 uL; Monocytes % (auto) 11.7 % (0.0-12.0); Neutrophils # (auto) 4.7 uL; Neutrophils % (auto) 68.9 % (37.0-80.0); Platelet Count (auto) 104 10^3/uL (140-450); Red Blood Cells 2.47 10^6/uL (4.5-5.90); Red Cell Distribution Width 15.2 % (11.8-14.3)
[2019-04-24 05:27] LABS: BUN/Creatinine Ratio 3.7; Potassium 3.4 mmol/L (3.5-5.1)
[2019-04-24] MEDS: InsuLIN REG 1unit/0.01ml Soln (100units/ml) SC SCH ×4 (06:09→21:57)
[2019-04-24] MEDS: PIPERACILLIN-TAZOB 2.25GM 50 ML IV SCH ×3 (06:09→21:57)
[2019-04-24] MEDS: ACCU-CHEK COMFORT CURVE STRIP VI SCH ×4 (06:09→21:58)
--- NOTE | 2019-04-24 07:00 | NUR ---
WOUND VAC DRAINAGE Total wound vac drainage from 04-23-19 190 to 04-24-19 07 was 150 ml of sanguinous drainage.
--- NOTE | 2019-04-24 07:02 | NUR ---
CLOSING SHIFT NOTE Patient is laying in bed with even and unlabored breathing. Wound vac in place to right lower foot, draining sanguineous drainage. No S/S of distress/SOB noted. Bed is locked in lowest position, side rails x 2 are up, call light is within reach, and bed alarm is on. Will endorse patient care to day shift RN.
--- NOTE | 2019-04-24 07:30 | NUR ---
Opening Shift Note Assumed care of patient, awake and alert. No S/S of distress/SOB or pain. Instructed on POC and to call for assist PRN, will continue to monitor for changes Q1hr and PRN. Bed in low and locked position, rails up x2, no-slip sock on. Wound vac draining well. Call to wound care nurse for replacement canister.
[2019-04-24] MEDS: Pro-Stat SF 30ml Vanilla PO SCH ×2 (08:00→18:00)
[2019-04-24] MEDS: SEVELAMER 800 MG TAB PO SCH ×3 (08:00→18:00)
[2019-04-24] MEDS: Glucerna Carbsteady SHAKE Vanilla 8oz PO SCH ×3 (08:00→18:00)
--- NOTE | 2019-04-24 08:22 | NUR ---
WOUND CARE NOTE: Wound care in for daily monitoring of wound vac functioning. Patient is resting in bed in Rm. 204. His eyes are closed, respond to verbal and tactile stimuli, respirations even and unlabored. Patient's Rt foot wound vac dressing remain intact with good seal. Info Vac functioning well at 125 mmHg continuos as MD ordered. Vacutainer is almost full , applied new canister. Noted 425 serosanguineous on old canister. Endorse 1 canister to patient's nurse, AJITH Oliveira to keep in nurse station in case of need to change canister at night time. Will continue to monitor.
--- NOTE | 2019-04-24 08:44 | NUR ---
DR RICE AT BEDSIDE
[2019-04-24 09:00] VITALS: BP 147/86
--- NOTE | 2019-04-24 09:15 | NUR ---
HOLD VANCO TODAY 04/24 DR RICE REQUESTING TO HOLD TODAYS DOSE OF VANCOMYCIN. CONFIRMED WITH DOCTOR THAT PER PHARMACY, HOLD IF RANDOM VANCO IS GREATER THAN 25, HOWEVER DR RICE IS REQUESTING DOSE TO BE HELD TODAY. WILL CARRY OUT ORDER.
[2019-04-24] MEDS: FUROSEMIDE 40 MG TAB PO SCH (09:36)
[2019-04-24] MEDS: amLODIPine BESYLATE 5 MG TAB PO SCH (09:36)
[2019-04-24] MEDS: SERTRALINE HCL 50 MG TAB PO SCH (09:36)
[2019-04-24] MEDS: CALCIUM ACETATE 667 MG CAP PO SCH ×3 (09:37→18:00)
[2019-04-24] MEDS: CARVEDILOL 3.125 MG TAB PO SCH ×2 (09:37→21:57)
[2019-04-24] MEDS: FAMOTIDINE 20 MG TAB PO SCH (09:37)
[2019-04-24] MEDS: SODIUM CHLOR 0.9% PF (SALINE LOCK) 10ML VIAL/SYR IV SCH ×2 (09:38→21:57)
--- NOTE | 2019-04-24 11:12 | NUR ---
PATIENT OFF UNIT FOR PROCEDURE CT HEAD
--- NOTE | 2019-04-24 11:26 | NUR ---
PATIENT BACK ON UNIT
--- NOTE | 2019-04-24 12:45 | NUR ---
DR Chen FINK AT BEDSIDE NEW ORDERS ADDED, WILL CARRY OUT
[2019-04-24 13:00] VITALS: BP 135/65
[2019-04-24] MEDS ORDERED: EPOETIN ALFA 10,000 UNIT/1 ML VIAL SC ONE (13:10)
--- NOTE | 2019-04-24 14:00 | NUR ---
NOSE BLEED PERFORMED A COMPLETE LINEN CHANGE, PATIENT HAVING A NOSE BLEED, APPLIED PRESSURE TO NOSE AND PACKED WITH 4X4 GAUZE, INSTRUCTED PATIENT NOT TO REMOVE GAUZE OR TO BLOW NOSE AGGRESSIVELY, PATIENT VERBALIZED UNDERSTANDING. NOSE BLEED SLOWED, AND SUCTION SET UP AT BEDSIDE FOR USE. WILL CONTINUE TO MONITOR.
--- NOTE | 2019-04-24 14:10 | NUR ---
RIGHT HEEL DRESSING CHANGE DRESSING CHANGED TO RIGHT HEEL, REMOVED OLD DRESSING, CLEANSED WITH WOUND CLEANSER, PAT DRY WITH GAUZE, ENSURED GOOD SEAL ON WOUND VAC THEN APPLIED OPTIFOAM TO OPEN BLISTER AND SECURED WITH STOCKINETTE. PATIENT TOLERATED IT WELL.
[2019-04-24] MEDS: SODIUM FERR GLUC 62.5MG/5ML 125 MG in SODIUM CHL 0.9% 100 ML IV SCH (14:41)
--- NOTE | 2019-04-24 15:10 | NUR ---
PATIENT VOMIT PATIENT VOMITED APPROXIMATELY 100ML OF RED BLOOD, NOSE GAUZE HAD BEEN REMOVED AND PATIENT WAS SNEEZING. POSITIONED PATIENT LEANING FORWARD, REPLACED A 4X4 GAUZE ROLL IN NOSE AN APPLIED MANUAL PRESSURE FOR APPROXIMATELY 5 MINUTES. PATIENT NOSE BLEEDING HAS SLOWED AND PATIENT STATED HE "DOESN'T FEEL LIKE HE IS SWALLOWING BLOOD" AT THIS TIME. LEFT NOSE GAUZE IN PLACE, SUCTION AND EMESIS BAG AT BEDSIDE. CALL PLACED TO DR Chen FINK FROM [facility] REGARDING NOSE BLEED EPISODE REQUESTING ORDERS FOR VITAMIN K, PRIOR TO DR Chen FINK ROUNDING PATIENT HAD NOT HAD A NOSE BLEED, AWAITING CALL BACK.
--- NOTE | 2019-04-24 16:06 | NUR ---
NOSE BLEED STOP ON REASSESSMENT PATIENT NOSE BLEED SEEMS TO HAVE STOPPED. NO BLOOD IN MOUTH OR SATURATING THE GAUZE ROLL IN NOSE. PATIENT STATES HE THINKS IT STOPPED. WILL LEAVE GAUZE IN PLACE AND CONTINUE TO MONITOR FOR CHANGES. AWAITING CALL BACK FROM .
[2019-04-24 16:47] VITALS: BP 121/80
--- NOTE | 2019-04-24 17:00 | NUR ---
FAMILY AT BEDSIDE
--- NOTE | 2019-04-24 18:00 | NUR ---
CALLED PASSWORD PROVIDED, UPDATED ON PLAN OF CARE AND STATUS OF PATIENT.
[2019-04-24] MEDS: TAMSULOSIN HYDROCHLORIDE 0.4 MG CAP PO SCH (18:11)
--- NOTE | 2019-04-24 19:30 | NUR ---
Fall precautions note Patient assessed and determined to be fall risk. Fall precautions in place, including side bed rails up X 2, bed alarms on, fall risk wristband in place. Patient in room within view of nursing station for safety. Patient instructed to call staff regarding any needs involving getting out of bed or bathroom needs. Patient verbalized understanding.
--- NOTE | 2019-04-24 20:33 | NUR ---
Wound Vac Patient's Rt foot wound vac dressing is intact with good seal. Noted 150ml serosanguineous drainage in Vacutainer. Will continue to monitor. Encouraged patient to stay in bed to avoid disconnection of wound vac, he verbalized understanding. Encouraged patient to call for any needs and repositioning.
--- NOTE | 2019-04-24 21:45 | NUR ---
INCONTINENT OF STOOL PATIENT HAD SMALL AMOUNT OF DARK BROWN COLORED LIQUID STOOL. FULL LINEN CHANGE PROVIDED. PATIENT CLEANED AND NEW GOWN PROVIDED. PATIENT REPOSITIONED FOR COMFORT. BED ALARM PLACED BACK ON , CALL LIGHT WITHIN REACH.
[2019-04-24] MEDS: ATORVASTATIN 20 MG TAB PO SCH (21:56)
[2019-04-24 22:00] VITALS: BP 125/71
--- NOTE | 2019-04-25 01:30 | NUR ---
INCONTINENT OF STOOL PATIENT HAD MOD AMOUNT OF DARK BROWN/BLACK COLORED LIQUID STOOL. FULL LINEN CHANGE PROVIDED. PATIENT CLEANED AND NEW GOWN PROVIDED. PATIENT REPOSITIONED FOR COMFORT. BED ALARM PLACED BACK ON , CALL LIGHT WITHIN REACH.
--- NOTE | 2019-04-25 02:05 | NUR ---
HOSPITALIST PAGED RE: NEW ONSET OF DARK COLORED STOOL
[2019-04-25 05:00] VITALS: BP 121/76
--- NOTE | 2019-04-25 06:15 | NUR ---
LAB CALL TO LAB, UNABLE TO DRAW LABS FROM PATIENTS PICC LINE (BLOOD RETURN SLOW), STATE THEY WILL SEND SOMEONE TO DRAW LABS FOR PATIENT.
[2019-04-25] MEDS: PIPERACILLIN-TAZOB 2.25GM 50 ML IV SCH ×3 (06:18→22:05)
[2019-04-25] MEDS: ACCU-CHEK COMFORT CURVE STRIP VI SCH ×4 (06:26→22:06)
[2019-04-25] MEDS: InsuLIN REG 1unit/0.01ml Soln (100units/ml) SC SCH ×4 (06:26→22:00)
--- NOTE | 2019-04-25 06:27 | NUR ---
Wound Vac Output for shift Patient's Rt foot wound vac dressing is intact with good seal. Noted approximately 300ml serosanguineous drainage in Vacutainer. Total output = approximately 150ml serosanguineous drainage.
--- NOTE | 2019-04-25 07:00 | NUR ---
Opening Shift Note Assumed care of patient, sleep and easily aroused. falls back to sleep quickly. No S/S of distress/SOB or pain. Will continue to monitor for changes Q1hr and PRN.
[2019-04-25 08:00] VITALS: BP 130/70
[2019-04-25] MEDS: Glucerna Carbsteady SHAKE Vanilla 8oz PO SCH ×3 (08:00→18:56)
[2019-04-25] MEDS: SEVELAMER 800 MG TAB PO SCH ×3 (08:00→18:14)
[2019-04-25] MEDS: Pro-Stat SF 30ml Vanilla PO SCH ×2 (08:00→18:56)
[2019-04-25] MEDS: CALCIUM ACETATE 667 MG CAP PO SCH ×3 (08:00→18:14)
--- NOTE | 2019-04-25 08:00 | NUR ---
medications held. patient refused breakfast and is not eating.
--- NOTE | 2019-04-25 08:28 | NUR ---
WOUND CARE NOTE: Wound care in for daily monitoring of wound vac functioning. Patient is resting in bed in Rm. 204. His eyes are closed, respirations even and unlabored, respond to verbal and tactile stimuli. Patient's Rt foot wound vac dressing remain intact with good seal. Info Vac functioning well at 125 mmHg continuos as MD ordered. Noted 325 serosanguineous drainage in Vacutainer. Will continue to monitor.
[2019-04-25 08:30] VITALS: BP 130/70
[2019-04-25 09:42] LABS: Basophils # (auto) 0.1 uL; Basophils % (auto) 1.2 % (0.0-2.0); Eosinophils # (auto) 0.4 uL; Hemoglobin 7.7 g/dL (13.5-17.5); Lymphocytes # (auto) 0.7 uL; Monocytes # (auto) 0.6 uL; White Blood Cell 6.6 10^3/uL (4.4-10.8)
[2019-04-25 09:43] LABS: Eosinophils % (auto) 6.3 % (0.0-7.0); Hematocrit 22.7 % (41.0-53.0); Lymphocytes % (auto) 10.5 % (10.0-50.0); Mean Corpuscular Hemoglobin 30.5 pg (28.0-32.0); Mean Corpuscular Hgb Conc. 33.8 g/dL (32.0-36.0); Mean Corpuscular Volume 90.1 fL (80.0-100.0); Monocytes % (auto) 8.9 % (0.0-12.0); Neutrophils # (auto) 4.8 uL; Neutrophils % (auto) 73.1 % (37.0-80.0); Nucleated Red Blood Cells % 0.1 %; Platelet Count (auto) 152 10^3/uL (140-450); Red Blood Cells 2.52 10^6/uL (4.5-5.90); Red Cell Distribution Width 15.2 % (11.8-14.3)
[2019-04-25 10:04] LABS: Calcium 7.2 mg/dL (8.5-10.1); Potassium 3.8 mmol/L (3.5-5.1)
[2019-04-25] MEDS: SERTRALINE HCL 50 MG TAB PO SCH (10:12)
[2019-04-25] MEDS: FAMOTIDINE 20 MG TAB PO SCH (10:12)
[2019-04-25] MEDS: FUROSEMIDE 40 MG TAB PO SCH (10:13)
[2019-04-25] MEDS: amLODIPine BESYLATE 5 MG TAB PO SCH (10:13)
[2019-04-25] MEDS: SODIUM CHLOR 0.9% PF (SALINE LOCK) 10ML VIAL/SYR IV SCH ×2 (10:16→22:06)
[2019-04-25] MEDS: CARVEDILOL 3.125 MG TAB PO SCH ×2 (10:16→22:05)
[2019-04-25] MEDS: SODIUM FERR GLUC 62.5MG/5ML 125 MG in SODIUM CHL 0.9% 100 ML IV SCH (12:34)
[2019-04-25 13:00] VITALS: BP 126/61
--- NOTE | 2019-04-25 14:28 | NUR ---
re-assessment Per consult arrange for transfer to [facility]. Patient agrees to transfer stating he has been there before. Patients to transport. MD order has been sent to [facility]. Waiting for reply back now. Addendum: 04/25/19 at 1430 by Gem Joseph Amended: Links added.
[2019-04-25 17:00] VITALS: BP 130/63
--- NOTE | 2019-04-25 18:00 | NUR ---
drainage canister changed on wound vac. Total output 430 mls of serosanguinous drainage.
[2019-04-25] MEDS: TAMSULOSIN HYDROCHLORIDE 0.4 MG CAP PO SCH (18:14)
--- NOTE | 2019-04-25 18:15 | NUR ---
Optifoam dressing applied to heel of right foot.
--- NOTE | 2019-04-25 19:20 | NUR ---
Opening Shift Note Assumed care of patient, awake and alert x3. No S/S of distress/SOB or pain. A wound vac is in place to the right foot and set at 125 mmHg, the dressing to the right heel has minimal drainage and both legs are elevated with a pillow. Call light is within reach, side rails up x2, bed is in lowest position, bed alarm is on. Instructed on POC and to call for assist PRN, will continue to monitor for changes Q1hr and PRN.
[2019-04-25 21:31] VITALS: BP 122/64
[2019-04-25] MEDS: ATORVASTATIN 20 MG TAB PO SCH (22:05)
--- NOTE | 2019-04-25 22:16 | NUR ---
Paged hospitalist due to patient having multiple liquid bowel movements.
--- NOTE | 2019-04-25 22:41 | NUR ---
Hospitalist called back. New orders received to collect a C-diff culture. Will carry out and continue to monitor.
--- NOTE | 2019-04-25 23:40 | NUR ---
Sent C-diff culture to lab via [facility] system.
[2019-04-26 05:20] VITALS: BP 119/67
[2019-04-26] MEDS: PIPERACILLIN-TAZOB 2.25GM 50 ML IV SCH ×3 (05:46→21:50)
--- NOTE | 2019-04-26 05:56 | NUR ---
wound care to right heel cleaned the right heel with wound cleanser and new optifoam placed. Right heel was elevated with a pillow, patient tolerated with no pain.
[2019-04-26] MEDS: InsuLIN REG 1unit/0.01ml Soln (100units/ml) SC SCH ×4 (06:29→22:00)
[2019-04-26] MEDS: ACCU-CHEK COMFORT CURVE STRIP VI SCH ×4 (06:29→22:00)
--- NOTE | 2019-04-26 06:55 | NUR ---
Dialysis nurse at bedside.
[2019-04-26] MEDS ORDERED: SODIUM CHL 0.9% 1000 ML BAG XX ONE (07:00)
--- NOTE | 2019-04-26 07:17 | NUR ---
Total output from wound vac on 04/25/19 at 19:00 to 04/26/19 at 07:00 was 150 mL of serosanguineous fluid.
--- NOTE | 2019-04-26 07:30 | NUR ---
Opening Shift Note Assumed care of patient, PT awake and alert. No S/S of distress/SOB or pain. Instructed on POC and to call for assist PRN, will continue to monitor for changes Q1hr and PRN. HEMODIALYSIS ONGOING AT BEDSIDE.
[2019-04-26 07:39] LABS: Basophils # (auto) 0.1 uL; Hemoglobin 7.1 g/dL (13.5-17.5)
[2019-04-26 07:41] LABS: Basophils % (auto) 1.1 % (0.0-2.0); Eosinophils # (auto) 0.5 uL; Eosinophils % (auto) 6.9 % (0.0-7.0); Hematocrit 21.2 % (41.0-53.0); Lymphocytes % (auto) 14.7 % (10.0-50.0); Mean Corpuscular Hemoglobin 30.2 pg (28.0-32.0); Mean Corpuscular Hgb Conc. 33.4 g/dL (32.0-36.0); Mean Corpuscular Volume 90.5 fL (80.0-100.0); Monocytes # (auto) 0.6 uL; Monocytes % (auto) 8.9 % (0.0-12.0); Neutrophils # (auto) 4.8 uL; Neutrophils % (auto) 68.4 % (37.0-80.0); Nucleated Red Blood Cells % 0.3 %; Platelet Count (auto) 199 10^3/uL (140-450); Red Blood Cells 2.34 10^6/uL (4.5-5.90); Red Cell Distribution Width 15.3 % (11.8-14.3)
[2019-04-26 08:01] LABS: % Iron Saturation 24.8 % (20-55)
[2019-04-26 09:00] VITALS: BP 126/62
[2019-04-26] MEDS ORDERED: HYDROcodone-ACET 5/325MG TAB PO PRN (10:15)
[2019-04-26] MEDS ORDERED: MORPHINE SULFATE 4 MG/ML SYR/VIAL IV PRN (10:15)
[2019-04-26] MEDS ORDERED: MORPHINE SULF INJ 2 MG/ML SYRINGE 1ML IV PRN (10:45)
--- NOTE | 2019-04-26 10:50 | NUR ---
WOUND CARE NOTE: IN TO SEE PATIENT AT THIS TIME, CHANGE WOUND VAC DRESSING TO RIGHT FOOT WOUNDS. PATIENT'S DRESSING PARTIALLY PULLED OFF, BED SHEETS SATURATED WITH SEROSANGUINEOUS DRAINAGE. WOUND VAC DRESSING REMOVED. PATIENT'S WOUND NO LONGER BLEEDING. HE HAS LARGE OPEN BLISTERS TO THE RIGHT HEEL AND DORSAL TRANSMETATARSAL STUMP. BLISTERS ARE PARTIAL THICKNESS, RED WOUND BED, WITH PURPLE/RED PERIWOUND. WOUND CAVITY CONTINUES TO HAVE EXPOSED BONE IN STUMP. APPLIED CAVILON NO STING BARRIER FILM TO INTACT PERIWOUND SKIN, AND BRIDGE SKIN AREA ON DORSAL FOOT/ANKLE. NEW WOUND PHOTOS TAKEN FOR REFERENCE AT THIS TIME. APPLIED WHITE FOAM IN WOUND CAVITY, BLACK GRANUFOAM IN OPEN BLISTERS OF HEEL AND DORSAL STUMP, WELL OPEN AMPUTATION CAVITY. PLACED DRAPE OVER ALL, SECURED TRAC PAD. APPLIED DRESSING TO WOUND VAC. TURNED ON VAC, SETTING TO 125 MM/HG CONTINUOUS. GOOD SUCTION, NO LEAKS DETECTED. APPLIED STOCKINETTE TO FURTHER SECURE DRESSING. APPLIED GURDEEP FOAM BOOT TO PROTECT RIGHT FOOT AND DRESSING. PATIENT TOLERATED DRESSING CHANGE WELL, NOTING NO PAIN BY PATIENT. ELEVATED RIGHT FOOT UP ONTO PILLOWS. RECOMMEND: Q 3 DAY/PRN DRESSING CHANGE WITH WOUND VAC, CONTINUATION WITH ALL OTHER WOUND CARE ORDERS PREVIOUSLY PRESCRIBED BY MD. WOUND CARE TEAM WILL CONTINUE TO MONITOR. Addendum: 04/26/19 at 1446 by Komal Ayala RN Amended: Links added.
[2019-04-26] MEDS: SEVELAMER 800 MG TAB PO SCH ×3 (10:51→18:38)
[2019-04-26] MEDS: SERTRALINE HCL 50 MG TAB PO SCH (10:51)
[2019-04-26] MEDS: SODIUM CHLOR 0.9% PF (SALINE LOCK) 10ML VIAL/SYR IV SCH ×2 (10:52→21:49)
[2019-04-26] MEDS: CALCIUM ACETATE 667 MG CAP PO SCH ×3 (10:52→18:38)
[2019-04-26] MEDS: CARVEDILOL 3.125 MG TAB PO SCH ×2 (10:52→21:50)
[2019-04-26 10:59] LABS: Chloride 106 mmol/L (98-107); Potassium 3.5 mmol/L (3.5-5.1); Sodium 145 mmol/L (136-145)
[2019-04-26 11:00] LABS: Anion Gap 25 (5-15); BUN/Creatinine Ratio 3.8; Blood Urea Nitrogen 18 mg/dL (7-18); Carbon Dioxide 14 mmol/L (21-32); GFR African American 17 mL/min; GFR Non-African American 14 mL/min
[2019-04-26 11:01] LABS: Calcium 7.1 mg/dL (8.5-10.1); Glucose 106 mg/dL (74-106)
[2019-04-26] MEDS: FUROSEMIDE 40 MG TAB PO SCH (11:02)
[2019-04-26] MEDS: amLODIPine BESYLATE 5 MG TAB PO SCH (11:02)
[2019-04-26] MEDS: FAMOTIDINE 20 MG TAB PO SCH (11:03)
[2019-04-26] MEDS: Pro-Stat SF 30ml Vanilla PO SCH ×2 (11:03→18:38)
[2019-04-26] MEDS: Glucerna Carbsteady SHAKE Vanilla 8oz PO SCH ×3 (11:03→18:37)
--- NOTE | 2019-04-26 11:45 | NUR ---
ASSISTED [facility] LIEUTENANT WITH WOUND CARE FOR PATIENT SOME IKE ON INCISION ON MEDIAL SIDE OF LEFT HEEL WAS NOTED TO HAVE COME OFF OF THE INCISION . Addendum: 04/26/19 at 1937 by Marycarmen Quiñones RN WRONG FOOT. IT'S ON THE LATERAL SIDE OF RIGHT HEEL
[2019-04-26] MEDS: SODIUM FERR GLUC 62.5MG/5ML 125 MG in SODIUM CHL 0.9% 100 ML IV SCH (12:00)
[2019-04-26 13:00] VITALS: BP 141/54
[2019-04-26] MEDS ORDERED: VANCOMYCIN 1GM/250ML 250 ML IV ONE (16:00)
--- NOTE | 2019-04-26 16:47 | NUR ---
re-assessment Ss consult please arrange for transfer to [facility] for further care faxed to [facility], LELA, JUAN and Miguelina Carter. Per Jessie [facility] cannot accept do to level of care. Per Jose VOGEL cannot accept per level of care. Per Leigh Ann MARTINEZ has accepted to room 43-A and accepting MD Is Dr. Maguire. Per Sujata Carter has accepted to room 2-B and accepting MD is Rama Jha. Pt and prefer Miguelina Carter. Addendum: 04/26/19 at 1648 by Gem LOYD Amended: Links added.
[2019-04-26 17:00] VITALS: BP 110/47
[2019-04-26] MEDS: TAMSULOSIN HYDROCHLORIDE 0.4 MG CAP PO SCH (18:37)
--- NOTE | 2019-04-26 19:40 | NUR ---
Opening Shift Note Assumed care of patient, awake and alert. No S/S of distress/SOB or pain. Instructed on POC and to call for assist PRN. Bed in lowest locked position, call light within reach, side rails up x2. Will continue to monitor for changes Q1hr and PRN.
[2019-04-26] MEDS ORDERED: EPOETIN ALFA 10,000 UNIT/1 ML VIAL SC ONE (21:00)
[2019-04-26] MEDS: ATORVASTATIN 20 MG TAB PO SCH (21:50)
[2019-04-26 22:00] VITALS: BP 126/58
[2019-04-27 05:41] VITALS: BP 150/72
[2019-04-27] MEDS: ACCU-CHEK COMFORT CURVE STRIP VI SCH ×4 (06:49→21:31)
[2019-04-27] MEDS: InsuLIN REG 1unit/0.01ml Soln (100units/ml) SC SCH ×4 (06:49→21:31)
[2019-04-27] MEDS: PIPERACILLIN-TAZOB 2.25GM 50 ML IV SCH ×3 (06:49→21:25)
[2019-04-27 07:38] LABS: Basophils # (auto) 0.1 uL; Eosinophils # (auto) 0.4 uL; Eosinophils % (auto) 5.9 % (0.0-7.0); Hematocrit 23.4 % (41.0-53.0); Hemoglobin 7.8 g/dL (13.5-17.5); Monocytes # (auto) 0.8 uL; Neutrophils % (auto) 68.9 % (37.0-80.0); Nucleated Red Blood Cells % 0.1 %; Red Blood Cells 2.53 10^6/uL (4.5-5.90); White Blood Cell 7.3 10^3/uL (4.4-10.8)
[2019-04-27 07:39] LABS: Lymphocytes % (auto) 13.7 % (10.0-50.0); Mean Corpuscular Hemoglobin 30.7 pg (28.0-32.0); Mean Corpuscular Hgb Conc. 33.2 g/dL (32.0-36.0); Mean Corpuscular Volume 92.4 fL (80.0-100.0); Monocytes % (auto) 10.5 % (0.0-12.0); Platelet Count (auto) 226 10^3/uL (140-450); Red Cell Distribution Width 15.8 % (11.8-14.3)
[2019-04-27] MEDS: SEVELAMER 800 MG TAB PO SCH ×3 (07:45→17:58)
[2019-04-27] MEDS: CALCIUM ACETATE 667 MG CAP PO SCH ×3 (07:45→17:58)
[2019-04-27] MEDS: Glucerna Carbsteady SHAKE Vanilla 8oz PO SCH ×3 (07:47→17:59)
[2019-04-27] MEDS: Pro-Stat SF 30ml Vanilla PO SCH ×2 (07:47→17:59)
[2019-04-27 08:00] VITALS: BP 133/96
--- NOTE | 2019-04-27 08:00 | NUR ---
Opening Shift Note Assumed care of patient, awake and alert. No S/S of distress/SOB or pain. Instructed on POC and to call for assist PRN with call light within reach. Wound vac in place, possey boot on right foot. Will continue to monitor for changes Q1hr and PRN.
[2019-04-27 08:07] LABS: Calcium 7.1 mg/dL (8.5-10.1); Potassium 3.7 mmol/L (3.5-5.1)
[2019-04-27 08:11] LABS: BUN/Creatinine Ratio 2.9
[2019-04-27 09:00] VITALS: BP 105/63
[2019-04-27] MEDS: SODIUM CHLOR 0.9% PF (SALINE LOCK) 10ML VIAL/SYR IV SCH ×2 (09:46→21:26)
[2019-04-27] MEDS: FAMOTIDINE 20 MG TAB PO SCH (09:47)
[2019-04-27] MEDS: CARVEDILOL 3.125 MG TAB PO SCH ×2 (09:47→21:26)
[2019-04-27] MEDS: SERTRALINE HCL 50 MG TAB PO SCH (09:47)
[2019-04-27] MEDS: amLODIPine BESYLATE 5 MG TAB PO SCH (09:47)
[2019-04-27] MEDS: FUROSEMIDE 40 MG TAB PO SCH (09:48)
--- NOTE | 2019-04-27 10:35 | NUR ---
Dr Duran at bedside to see patient. informed of patient having diarrhea x15 episodes per NOC RN reported.
[2019-04-27] MEDS ORDERED: metroNIDAZOLE 500 MG TAB PO ONE (10:45)
--- NOTE | 2019-04-27 11:30 | NUR ---
WOUND CARE NOTE: Daily follow up by wound care team due to wound vac. Patient currently sitting up in chair. Wound vac in place, no leak detected, suction remains at 125mm Hg continuous. ~400ml of sanguinous drainage in canister. Discussed with bedside RNMaria C. Discharge held at this time to rule out cause of diarrhea. Nursing with extra canister at bedside. Next dressing change scheduled for 04/29/19. Wound care team to continue to follow.
[2019-04-27] MEDS: SODIUM FERR GLUC 62.5MG/5ML 125 MG in SODIUM CHL 0.9% 100 ML IV SCH (12:17)
[2019-04-27 12:56] VITALS: BP 126/67
[2019-04-27] MEDS: metroNIDAZOLE 500 MG TAB PO SCH ×2 (14:24→21:25)
--- NOTE | 2019-04-27 14:51 | NUR ---
Nutrition Follow-up Notes Wt.: 117.2 kg based on bed scale as of yesterday. Pt's in isolation room, talking with MD at bedside during rounds this morning. Pt had dialysis yesterday, no signs of distress noted earlier, currently on CCHO 60 gms/meal, Renal Std diet diet with Glucerna Shakes 1 carton TID and Prostat 1 pkt BID, has inadequate PO intake aeb <50% ave. consumed meals (x6) in last 2.5 days d/t pt refused, per nursing. Est. Needs IBW [id number] kcal (30-35 kcal/kgBW), 90-105 gms pro (1.2-1.4 gms/kgBW). Will continue to monitor pertinent labs and reassess nutrient need prn Labs: Gluc 114 H, Cl 108 H, Cr 5.89 H, Ca 7.1 L; Tpro 6.0 L, Alb 1.8 L Skin: Alan scale 13, mod risk, pt's right ft amputation, right heel open blisters s/p debridement wounds per sleeping car porter. Pls refer to precinct police sergeant's notes today for further details. GI: Pt had 15x BM this morning per sleeping car porter. PES: Altered nutrition related lab values r/t acute/chronic medical condition aeb elev RFT severe hypoalb, hypocalcemia, elev A1C, hyperglycemia Decreased nutrient needs r/t adiposity aeb pt`s high BMI of 39.9 kgm2 Will continue to monitor PO intake, skin status, pertinent labs and weight trend. F/u in 3 to 5 days. Rec.: 1.) Please enter order for daily Nephrovite and Asc acid 500 mgs BID, already e-signed by MD. 2.) Continue close supervision and feeding assistance prn with meals. 3.) Consider appetite stimulant prn to improve pt's PO intake. 4.) Refer to CDE/RD for further nutrition education and weight monitoring upon discharged. 5.) Continue current plan of care
[2019-04-27 17:00] VITALS: BP 124/51
[2019-04-27] MEDS: TAMSULOSIN HYDROCHLORIDE 0.4 MG CAP PO SCH (17:58)
--- NOTE | 2019-04-27 19:30 | NUR ---
Opening Shift Note Assumed care of patient, awake and alert x4. Patient noted to have wound vac to right stump, at 125mmHg continuous suction. No S/S of distress/SOB noted. Instructed on plan of care and to call for assistance as needed. Bed is locked in lowest position, side rails upx2, call light is within reach, and bed alarm is on. Will continue to monitor patient.
[2019-04-27] MEDS: ATORVASTATIN 20 MG TAB PO SCH (21:25)
[2019-04-27 22:09] VITALS: BP 105/76
[2019-04-28 05:24] VITALS: BP 125/57
--- NOTE | 2019-04-28 05:53 | NUR ---
PICC line dressing changed done. Patient tolerated well.
[2019-04-28] MEDS: metroNIDAZOLE 500 MG TAB PO SCH (06:05)
[2019-04-28] MEDS: PIPERACILLIN-TAZOB 2.25GM 50 ML IV SCH ×3 (06:06→15:29)
[2019-04-28] MEDS: InsuLIN REG 1unit/0.01ml Soln (100units/ml) SC SCH ×4 (06:10→21:44)
[2019-04-28] MEDS: ACCU-CHEK COMFORT CURVE STRIP VI SCH ×4 (06:11→21:44)
[2019-04-28 06:31] LABS: Basophils # (auto) 0.1 uL; Basophils % (auto) 1.3 % (0.0-2.0); Eosinophils # (auto) 0.5 uL; Eosinophils % (auto) 7.5 % (0.0-7.0); Hematocrit 24.1 % (41.0-53.0); Lymphocytes # (auto) 0.8 uL; Lymphocytes % (auto) 12.8 % (10.0-50.0); Mean Corpuscular Hemoglobin 30.7 pg (28.0-32.0); Monocytes # (auto) 0.6 uL; Monocytes % (auto) 9.5 % (0.0-12.0); Neutrophils # (auto) 4.3 uL; Neutrophils % (auto) 68.9 % (37.0-80.0); Nucleated Red Blood Cells % 0.2 %; Platelet Count (auto) 242 10^3/uL (140-450); Red Blood Cells 2.59 10^6/uL (4.5-5.90); Red Cell Distribution Width 16.1 % (11.8-14.3); White Blood Cell 6.2 10^3/uL (4.4-10.8)
[2019-04-28 07:00] LABS: Potassium 3.9 mmol/L (3.5-5.1)
[2019-04-28 07:17] LABS: Calcium 7.3 mg/dL (8.5-10.1)
--- NOTE | 2019-04-28 07:29 | NUR ---
Total output from wound vac for shift was 150 mL of serosanguineous fluid.
--- NOTE | 2019-04-28 07:30 | NUR ---
OPENING NOTE PATIENT IN BED LOW LOCK POSITION, CALL LIGHT IN REACH. DIALYSIS NURSE AT BEDSIDE. WOUND VAC INTACT AND DRAINING, FOAM BOOT TO STUMP. NO S/S OF DISTRESS. INFORMED PATIENT OF PENDING URINALYSIS ORDER, PATIENT VERBALIZED UNDERSTANDING.
[2019-04-28] MEDS: Pro-Stat SF 30ml Vanilla PO SCH ×2 (08:00→17:37)
[2019-04-28] MEDS: Glucerna Carbsteady SHAKE Vanilla 8oz PO SCH ×3 (08:00→17:37)
--- NOTE | 2019-04-28 08:00 | NUR ---
PATIENT GIVEN ICE PACK FOR LEFT ARM FISTULA PER DIALYSIS NURSE REQUEST.
--- NOTE | 2019-04-28 09:00 | NUR ---
WOUND CARE NOTE: Wound care in for daily monitoring of wound vac functioning. Patient continue resting in bed in Rm. 204. He's awake, alert and able to verbalize needs. Patient's Rt foot wound vac dressing remain intact with good seal. Info Vac functioning well at 125 mmHg continuos as MD ordered. No leak detected. Noted 150 serosanguineous drainage in Vacutainer. Next wound vac dressing change due tomorrow 04/29/19. Will continue to monitor.
[2019-04-28 09:10] VITALS: BP 128/60
--- NOTE | 2019-04-28 09:35 | NUR ---
Family updated on pt status Password verified. Family of VENKATESH TELLES updated on patient's status and condition. All questions and concerns addressed. Patient verbalized understanding.
[2019-04-28] MEDS: SODIUM CHLOR 0.9% PF (SALINE LOCK) 10ML VIAL/SYR IV SCH ×2 (10:00→21:40)
[2019-04-28] MEDS: FAMOTIDINE 20 MG TAB PO SCH (10:40)
[2019-04-28] MEDS: SERTRALINE HCL 50 MG TAB PO SCH (10:40)
[2019-04-28] MEDS: SEVELAMER 800 MG TAB PO SCH ×3 (10:40→17:37)
[2019-04-28] MEDS: CALCIUM ACETATE 667 MG CAP PO SCH ×3 (10:40→17:37)
[2019-04-28] MEDS: FUROSEMIDE 40 MG TAB PO SCH (10:41)
[2019-04-28] MEDS: CARVEDILOL 3.125 MG TAB PO SCH ×2 (10:42→21:41)
[2019-04-28] MEDS: amLODIPine BESYLATE 5 MG TAB PO SCH (10:43)
--- NOTE | 2019-04-28 10:45 | NUR ---
INFORMED MD OF PATIENT REQUEST FOR DIARRHEA MEDIATION. PER MD MELGAR, NO NEW ORDERS UNTIL CDIFF RESULTS COMES BACK. AWAITING RESULTS AT THIS TIME. WILL CONTINUE CARE.
[2019-04-28] MEDS ORDERED: LOPERAMIDE HCL 2 MG CAP PO PRN (12:15)
[2019-04-28] MEDS ORDERED: VANCOMYCIN PER PHARMACY 0 MG IV SCH (12:15)
[2019-04-28] MEDS ORDERED: LOPERAMIDE HCL 2 MG CAP PO ONE (12:15)
[2019-04-28] MEDS: SODIUM FERR GLUC 62.5MG/5ML 125 MG in SODIUM CHL 0.9% 100 ML IV SCH (12:41)
[2019-04-28 13:01] VITALS: BP 125/53
[2019-04-28] MEDS: ONDANSETRON HCL 4 MG/2 ML VIAL IV PRN (15:47)
[2019-04-28] MEDS: TAMSULOSIN HYDROCHLORIDE 0.4 MG CAP PO SCH (17:37)
[2019-04-28 17:40] VITALS: BP 110/58
[2019-04-28] MEDS ORDERED: VANCOMYCIN 1GM/250ML 250 ML IV ONE (18:00)
[2019-04-28] MEDS: ATORVASTATIN 20 MG TAB PO SCH (21:41)
[2019-04-28 22:46] VITALS: BP 118/61
[2019-04-29 05:26] VITALS: BP 104/58
[2019-04-29] MEDS: PIPERACILLIN-TAZOB 2.25GM 50 ML IV SCH ×2 (06:05→14:48)
[2019-04-29] MEDS: InsuLIN REG 1unit/0.01ml Soln (100units/ml) SC SCH ×2 (06:05→11:12)
[2019-04-29] MEDS: ACCU-CHEK COMFORT CURVE STRIP VI SCH ×2 (06:05→11:07)
--- NOTE | 2019-04-29 06:35 | NUR ---
Total output from wound vac for shift was 125 mL of serosanguineous fluid.
--- NOTE | 2019-04-29 07:35 | NUR ---
OPENING NOTE PATIENT AWAKE AND ALERT. NO S/S OF DISTRESS OR SOB. PATIENT DENIES ANY PAIN AT THIS TIME. PATIENT IN BED LOW LOCK POSITION, CALL LIGHT IN REACH. WOUND VAC INTACT AND DRAINING, FOAM BOOT ON STUMP. DISCUSSED POC WITH PATIENT. WILL CONTINUE TO MONITOR PATIENT PRN AND ROUND Q1HR.
[2019-04-29] MEDS: SEVELAMER 800 MG TAB PO SCH (07:54)
[2019-04-29] MEDS: CALCIUM ACETATE 667 MG CAP PO SCH (07:54)
[2019-04-29] MEDS: Pro-Stat SF 30ml Vanilla PO SCH ×2 (07:56→18:20)
[2019-04-29] MEDS: Glucerna Carbsteady SHAKE Vanilla 8oz PO SCH ×3 (07:56→18:20)
--- NOTE | 2019-04-29 08:18 | NUR ---
INFORMED PATIENT OF PENDING URINALYSIS ORDER, PATIENT VERBALIZED UNDERSTANDING.
[2019-04-29 09:00] VITALS: BP 124/55
[2019-04-29] MEDS: FAMOTIDINE 20 MG TAB PO SCH (09:54)
[2019-04-29] MEDS: SODIUM CHLOR 0.9% PF (SALINE LOCK) 10ML VIAL/SYR IV SCH (09:54)
[2019-04-29] MEDS: SERTRALINE HCL 50 MG TAB PO SCH (09:54)
[2019-04-29 11:04] LABS: BUN/Creatinine Ratio 2.9; Calcium 7.1 mg/dL (8.5-10.1); Potassium 3.9 mmol/L (3.5-5.1)
[2019-04-29] MEDS: CARVEDILOL 3.125 MG TAB PO SCH (11:06)
[2019-04-29] MEDS: FUROSEMIDE 40 MG TAB PO SCH (11:07)
--- NOTE | 2019-04-29 11:40 | NUR ---
CALLED [facility] FOR FOLLOW UP ON PATIENT RECEIVING DIALYSIS TODAY, DUE TO YESTERDAYS DIALYSIS WAS NOT COMPLETED. AWAITING CALL BACK.
[2019-04-29] MEDS ORDERED: CAR3125T PO (12:00)
[2019-04-29] MEDS: amLODIPine BESYLATE 5 MG TAB PO SCH (12:29)
[2019-04-29] MEDS: SODIUM FERR GLUC 62.5MG/5ML 125 MG in SODIUM CHL 0.9% 100 ML IV SCH (12:29)
[2019-04-29] MEDS ORDERED: NITROGLYCERIN 0.4 MG SL TAB SL PRN (12:45)
[2019-04-29] MEDS ORDERED: hydrALAZINE HCL 20 MG/ML VL IV PRN (12:45)
[2019-04-29] MEDS ORDERED: MORPHINE SULF INJ 2 MG/ML SYRINGE 1ML IV PRN (12:45)
[2019-04-29] MEDS ORDERED: ZOLPIDEM TARTRATE 5 MG TAB PO PRN (12:45)
[2019-04-29] MEDS ORDERED: HYDROcodone-ACET 5/325MG TAB PO PRN (12:45)
[2019-04-29] MEDS ORDERED: MORPHINE SULFATE 4 MG/ML SYR/VIAL IV PRN (12:45)
[2019-04-29] MEDS ORDERED: ONDANSETRON HCL 4 MG/2 ML VIAL IV PRN (12:45)
[2019-04-29] MEDS ORDERED: ACETAMINOPHEN 500 MG TAB PO PRN (12:45)
[2019-04-29] MEDS ORDERED: DEXTROSE (50%) 50ML SYRG IV PRN (12:45)
[2019-04-29 13:00] VITALS: BP 111/60
--- NOTE | 2019-04-29 14:21 | NUR ---
re-assessment Per consult transfer to [place] under Hal Jha. [facility] has declined patient and patient and his requested [facility]. Ellen from [facility] is setting up transport now. Patient will be admitted to room 2b and Dr Hal Jha is the accepting MD. [facility] has been notified. Waiting on ETA now. Addendum: 04/29/19 at 1429 by Gem Joseph Amended: Links added.
--- NOTE | 2019-04-29 14:24 | NUR ---
RECEIVED CALL FROM , ELIZABET LU. PT ACCEPTED TO [facility]. AWAITING TRANSFER ETA.
--- NOTE | 2019-04-29 14:50 | NUR ---
ATTEMPT X2 TO CALL TO NOTIFY ABOUT PT TRANSFER. UNABLE TO REACH OR LEAVE A MESSAGE.
[2019-04-29] MEDS ORDERED: VANCOMYCIN 1GM/250ML 250 ML IV ONE (15:00)
--- NOTE | 2019-04-29 15:00 | NUR ---
REPORT GIVEN TO RECEIVING RN, CHAS MCCABE AT .[facility]
--- NOTE | 2019-04-29 16:12 | NUR ---
PT , SOWMYA, CALLED AND IS UPDATED ON PT STATUS. PT UPDATED ON TRANSFER STATUS AND VERBALIZED UNDERSTANDING.
--- NOTE | 2019-04-29 16:56 | NUR ---
WOUND CARE NOTE: PATIENT TO TRANSFER TO [facility] THIS AFTERNOON. EXCHANGED INFOVAC FOR HOME VAC AT THIS TIME. PATIENT HAS GOOD SUCTION, NO LEAKS DETECTED. VAC RUNNING AT 125 MM/HG CONTINUOUS. PLACED PBX MECHANIC ORDER FOR INFOVAC. PATIENT TO TRANSFER TO SNF WITH HOME VAC AND ALL SUPPLIES.
[2019-04-29] MEDS ORDERED: InsuLIN REG 1unit/0.01ml Soln (100units/ml) SC SCH (17:00)
[2019-04-29] MEDS ORDERED: ACCU-CHEK COMFORT CURVE STRIP VI SCH (17:00)
[2019-04-29 17:07] VITALS: BP 119/54
--- NOTE | 2019-04-29 17:21 | NUR ---
PAGED ORTHODONTIC LAB TECHNICIAN SS IN REGARDS TO PT TRANSFER STATUS. AWAITING CALL BACK
--- NOTE | 2019-04-29 17:26 | NUR ---
CALLED [facility]. ACCORDING TO PYROTECHNIC ASSEMBLER, PT IS NOT GOING TO BE TRANSPORTED TO [facility].
--- NOTE | 2019-04-29 17:31 | NUR ---
SPOKE TO OSMIN WITH S/S. S/S AWARE THAT [facility] DOES NOT HAVE A TRANSFER SET UP AND STATES THAT THEY ARE NOT "RECEIVING THE PATIENT"
--- NOTE | 2019-04-29 17:42 | NUR ---
o/c note: [facility] primary RN called and stated dental receptionist at [facility] stated pt not coming to them, I called Ellen and she stated pt is going to [facility] but she was waiting for pt to get WD Vac before coming to snf. [facility] told me that pt has his own wd vac and not hospitals, I relayed this info to Ellen and she stated she will arrange transportation to get pt to snf
--- NOTE | 2019-04-29 17:44 | NUR ---
OSMIN CALLED AND NOTIFIED THAT [facility] WILL BE ACCEPTING THE PATIENT. THE [facility] COORDINATOR, JOSEFA, WAS UN-AWARE THAT THE PATIENT HAD ALREADY RECEIVED THEIR WOUND VAC AT BEDSIDE. [facility] NOTIFIED JOSEFA THAT THE PATIENT RECEIVED THE WOUND VAC AND IS READY FOR TRANSPORT. AWAITING CALL ON TRANSPORT INFORMATION FROM JOSEFA.
--- NOTE | 2019-04-29 17:48 | NUR ---
JOSEFA FROM [facility] CALLED AND NOTIFIED THAT THE PT WILL BE TRANSF[facility]ED [facility]. TRANSPORT SERVICES ARE ON ROLL CALL.
[2019-04-29 17:51] VITALS: BP 119/54
--- NOTE | 2019-04-29 17:54 | NUR ---
CHAS MCCABE RN AT [facility] CALLED AND CLERAFIED THAT THE PATIENT WILL BE RECEIVED AT [facility] AND THE PATIENT WILL BE TAKEN TO ROOM 46A AT THEIR FACILITY, RATHER THAN THE ORIGINAL ROOM 2B.
[2019-04-29] MEDS ORDERED: SEVELAMER 800 MG TAB PO SCH (18:00)
[2019-04-29] MEDS ORDERED: CALCIUM ACETATE 667 MG CAP PO SCH (18:00)
[2019-04-29] MEDS: TAMSULOSIN HYDROCHLORIDE 0.4 MG CAP PO SCH (18:19)
--- NOTE | 2019-04-29 19:22 | NUR ---
Closing shift note Patient resting in bed. No S/S of distress or SOB noted. Bed in lowest locked position, side rails up x 2, call light within reach. Endorsed care to mold shifter RN.
--- NOTE | 2019-04-29 19:30 | NUR ---
Report received from Felisa Simental RN. Per Felisa, patient will be [facility]. Per AJITH Roberto, discharge papers completed and [facility] transportation needs to be called. Per Felisa, she gave report to Miguelina Carter RN, Zoya and called patient's to notify her of the transport. Also, per Felisa, transfer papers had been signed by patient. Care assumed.
--- NOTE | 2019-04-29 19:50 | NUR ---
Opening Shift Note Assumed care of patient, awake and alert. No S/S of distress/SOB or pain. Instructed on POC and to call for assist PRN, will continue to monitor for changes Q1hr and PRN. Called [employer] at . Per staff, they will call back for ETA. Care continued.
--- NOTE | 2019-04-29 21:00 | NUR ---
Discharge instructions given as ordered. All questions and concerns addressed. Patient verbalized understanding. Patient's IV intact, patient will be transfered with IV for IV antibiotics at SNF, patient voiding freely using urinal. Medication reconciliation form completed and copy given to patient. No home medications held in Pharmacy , no needed vaccine at this time. Patient will be dischrged from Med-Surg. Report given to Miguelina Kenny RN by AJITH Roberto. Patient transported by [email or web address] from [employer] [facility] with all personal belongings. No distress noted at time of departure.
[2019-04-30] MEDS ORDERED: FAMOTIDINE 20 MG TAB PO SCH (10:00)
== END 2019-04-29 21:10 | DRG 628 ==
LOC: EDBD 11:09 → ER 11:09 → TELE 16:45 → TELE-CENTR 20:14 → CENTRAL 04-05 16:08
PROVIDERS: ADMIT Nurse Practitioner Acute Care; ATTEND Internal Medicine
PROC: 02HV33Z Insertion of Infusion Device into Superior Vena Cava, Percutaneous Approach (ICD-10-PCS; principal; 2019-04-07)
PROC: 5A1D70Z Performance of Urinary Filtration, Intermittent, Less than 6 Hours Per Day (ICD-10-PCS; 2019-04-07)
PROC: 5A1D70Z Performance of Urinary Filtration, Intermittent, Less than 6 Hours Per Day (ICD-10-PCS; 2019-04-09)
PROC: 5A1D70Z Performance of Urinary Filtration, Intermittent, Less than 6 Hours Per Day (ICD-10-PCS; 2019-04-12)
PROC: 0QBN0ZZ Excision of Right Metatarsal, Open Approach (ICD-10-PCS; 2019-04-13)
PROC: 30233N1 Transfusion of Nonautologous Red Blood Cells into Peripheral Vein, Percutaneous Approach (ICD-10-PCS; 2019-04-13)
PROC: 5A1D70Z Performance of Urinary Filtration, Intermittent, Less than 6 Hours Per Day (ICD-10-PCS; 2019-04-14)
PROC: 5A1D70Z Performance of Urinary Filtration, Intermittent, Less than 6 Hours Per Day (ICD-10-PCS; 2019-04-16)
PROC: 0YQ9XZZ Repair Right Lower Extremity, External Approach (ICD-10-PCS; 2019-04-17)
PROC: 5A1D70Z Performance of Urinary Filtration, Intermittent, Less than 6 Hours Per Day (ICD-10-PCS; 2019-04-19)
PROC: 5A1D70Z Performance of Urinary Filtration, Intermittent, Less than 6 Hours Per Day (ICD-10-PCS; 2019-04-21)
PROC: 30233R1 Transfusion of Nonautologous Platelets into Peripheral Vein, Percutaneous Approach (ICD-10-PCS; 2019-04-22)
PROC: 5A1D70Z Performance of Urinary Filtration, Intermittent, Less than 6 Hours Per Day (ICD-10-PCS; 2019-04-23)
PROC: 5A1D70Z Performance of Urinary Filtration, Intermittent, Less than 6 Hours Per Day (ICD-10-PCS; 2019-04-26)
PROC: 5A1D70Z Performance of Urinary Filtration, Intermittent, Less than 6 Hours Per Day (ICD-10-PCS; 2019-04-28)
DX: E11.69 Type 2 diabetes mellitus with other specified complication (principal); E43 Unspecified severe protein-calorie malnutrition; I50.43 Acute on chronic combined systolic (congestive) and diastolic (congestive) heart failure; L03.115 Cellulitis of right lower limb; I13.2 Hypertensive heart and chronic kidney disease with heart failure and with stage 5 chronic kidney disease, or end stage renal disease; D62 Acute posthemorrhagic anemia; M86.8X7 Other osteomyelitis, ankle and foot; I42.0 Dilated cardiomyopathy; G93.40 Encephalopathy, unspecified; N18.6 End stage renal disease; E11.22 Type 2 diabetes mellitus with diabetic chronic kidney disease; D63.8 Anemia in other chronic diseases classified elsewhere; E83.51 Hypocalcemia; E78.5 Hyperlipidemia, unspecified; I25.10 Atherosclerotic heart disease of native coronary artery without angina pectoris; E66.01 Morbid (severe) obesity due to excess calories; E11.621 Type 2 diabetes mellitus with foot ulcer; E11.21 Type 2 diabetes mellitus with diabetic nephropathy; E11.51 Type 2 diabetes mellitus with diabetic peripheral angiopathy without gangrene; B95.62 Methicillin resistant Staphylococcus aureus infection as the cause of diseases classified elsewhere; B96.20 Unspecified Escherichia coli [E. coli] as the cause of diseases classified elsewhere; R19.7 Diarrhea, unspecified; D63.1 Anemia in chronic kidney disease; E11.42 Type 2 diabetes mellitus with diabetic polyneuropathy; R79.1 Abnormal coagulation profile; J44.9 Chronic obstructive pulmonary disease, unspecified; N40.0 Benign prostatic hyperplasia without lower urinary tract symptoms; F32.9 Major depressive disorder, single episode, unspecified; K21.9 Gastro-esophageal reflux disease without esophagitis; L97.519 Non-pressure chronic ulcer of other part of right foot with unspecified severity; D69.6 Thrombocytopenia, unspecified; G47.33 Obstructive sleep apnea (adult) (pediatric); Z79.4 Long term (current) use of insulin; Z81.8 Family history of other mental and behavioral disorders; Z99.2 Dependence on renal dialysis; Z89.431 Acquired absence of right foot; Z99.81 Dependence on supplemental oxygen; Z79.899 Other long term (current) drug therapy; Z82.0 Family history of epilepsy and other diseases of the nervous system; Z82.49 Family history of ischemic heart disease and other diseases of the circulatory system; Z83.3 Family history of diabetes mellitus; Z68.34 Body mass index [BMI] 34.0-34.9, adult
CPT/HCPCS: 36415; 36569; 70450; 71045; 73630; 73700; 78452; 80048; 80053; 80061; 80202; 82728; 82962; 83036; 83540; 83550; 83605; 84100; 84484; 85014; 85018; 85025; 85610; 85730; 86850; 86900; 86901; 86920; 87040; 87077; 87081; 87186; 87205; 87493; 90935; 93005; 93017; 93306; 93926; 93971; 96365; 96366; 96368; G0378; J0153; J0330; J0690; J0885; J1335; J1642; J1815; J2250; J2405; J2543; J2704; J7060